=== PATIENT | male | born 1960 | race Two or more races ===

== ENCOUNTER 2018-10-09 01:56 | Inpatient (IN) | payer MEDICARE, OTHER ==
[2018-10-09] VITALS (7 sets, daily range): BP systolic 125–182; BP diastolic 53–93
[~2018-10-09] VITALS: Ht 160 cm; Wt 59.9 kg
[2018-10-09] MEDS ORDERED: MECLIZINE HCL12.5 MG ORAL (01:59)
[2018-10-09] MEDS ORDERED: LORazepam Inj 2mg/ml 1ml IV ONE (02:15)
[2018-10-09] MEDS ORDERED: DiphenhydrAMINE 50mg/ml Inj IVP ONE (02:15)
[2018-10-09 02:37] LABS: BASOPHILS % (AUTO) 1.2 % (0.0-2.0); HEMATOCRIT 28.3 % (42.0-52.0); HEMOGLOBIN 9.7 G/DL (14.2-18.0); MEAN CORPUSCULAR VOLUME 90 FL (80-99); MONOCYTES % (AUTO) 11.2 % (1.0-10.0); NEUTROPHILS % (AUTO) 58.7 % (45.0-75.0); PLATELET COUNT 297 K/UL (150-450); RED BLOOD COUNT 3.16 M/UL (4.70-6.10); RED CELL DISTRIBUTION WIDTH 13.2 % (11.6-14.8); WHITE BLOOD COUNT 7.2 K/UL (4.8-10.8)
[2018-10-09 02:48] LABS: ANION GAP 12 mmol/L (5-15); BLOOD UREA NITROGEN 70 mg/dL (7-18); CALCIUM 9.3 MG/DL (8.5-10.1); CARBON DIOXIDE 28 MMOL/L (21-32); CHLORIDE 92 MMOL/L (98-107); CREATININE 6.6 MG/DL (0.55-1.30); POTASSIUM 4.2 MMOL/L (3.5-5.1); SODIUM 132 MMOL/L (136-145)
[2018-10-09 03:01] LABS: ALANINE AMINOTRANSFERASE 28 U/L (12-78); ALBUMIN 3.4 G/DL (3.4-5.0); ALBUMIN/GLOBULIN RATIO 0.6 (1.0-2.7); ALKALINE PHOSPHATASE 192 U/L (46-116); ASPARTATE AMINO TRANSFERASE 36 U/L (15-37); BILIRUBIN,TOTAL 0.4 MG/DL (0.2-1.0); CKMB 2.1 NG/ML (0.0-3.6); CREATINE KINASE 71 U/L (26-308)
--- NOTE | 2018-10-09 03:41 | Emergency Room Report ---
History of Present Illness General Chief Complaint: Nausea Source: Patient Present Illness HPI Patient just by paramedics for reports of nausea vomiting Symptoms started this evening patient has dialysis Tuesday and Saturdays He is up-to-date with dialysis Denies any chest pain denies any fevers Patient presents actively vomiting Mild diffuse abdominal discomfort mainly epigastric however Allergies: Coded Allergies: No Known Allergies (Unverified , 10/09/18) Patient History Past Medical History: see triage record Pertinent Family History: none Reviewed Nursing Documentation: PMH: Agreed; PSxH: Agreed Nursing Documentation-PMH Past Medical History: No History, Except For Hx Hypertension: Yes Hx Diabetes: Yes Hx Dialysis: Yes - [facility] Review of Systems All Other Systems: negative except mentioned in HPI Physical Exam Vital Signs Date Time Temp Pulse Resp B/P (MAP) Pulse Ox O2 Delivery O2 Flow Rate FiO2 10/09/18 01:52 98.4 69 18 182/93 99 Sp02 EP Interpretation: reviewed, normal General Appearance: mild distress - Actively vomiting Head: normocephalic, atraumatic Eyes: bilateral eye PERRL, bilateral eye EOMI ENT: hearing grossly normal, normal pharynx, TMs + canals normal, uvula midline Neck: full range of motion, supple, no meningismus, no bony tend Respiratory: lungs clear, normal breath sounds, no rhonchi, no respiratory distress, no retraction, no accessory muscle use Cardiovascular #1: normal peripheral pulses, regular rate, rhythm, no edema, no gallop, no JVD, no murmur Gastrointestinal: normal bowel sounds, non tender, soft, no mass, no organomegaly, non-distended, no guarding, no hernia, no pulsatile mass, no rebound Genitourinary: no CVA tenderness Musculoskeletal: normal inspection Neurologic: oriented x3, responsive, cryogenic transport driver III-XII nml as tested, motor strength/ tone normal, sensory intact Psychiatric: mood/affect normal Skin: normal color, no rash, warm/dry, palpation normal Lymphatic: normal inspection, no adenopathy Medical Decision Making Diagnostic Impression: Primary Impression: Acute pancreatitis Additional Impressions: ESRD (end stage renal disease) on dialysis Pleural effusion ER Course Patient is a fairly complex patient with multiple differential to consideration including but not limited to cardiac cardiopulmonary and vascular emergencies Patient's lipase count is elevated x-ray shows concerning findings of large pleural effusion CT imaging confirms the size of this effusion Patient requires further inpatient care Renal and pulmonary consultations and admission for further care Labs Test 10/09/18 02:11 White Blood Count 7.2 K/UL (4.8-10.8) Red Blood Count 3.16 M/UL (4.70-6.10) Hemoglobin 9.7 G/DL (14.2-18.0) Hematocrit 28.3 % (42.0-52.0) Mean Corpuscular Volume 90 FL (80-99) Mean Corpuscular Hemoglobin 30.8 PG (27.0-31.0) Mean Corpuscular Hemoglobin Concent 34.3 G/DL (32.0-36.0) Red Cell Distribution Width 13.2 % (11.6-14.8) Platelet Count 297 K/UL (150-450) Mean Platelet Volume 5.8 FL (6.5-10.1) Neutrophils (%) (Auto) 58.7 % (45.0-75.0) Lymphocytes (%) (Auto) 22.0 % (20.0-45.0) Monocytes (%) (Auto) 11.2 % (1.0-10.0) Eosinophils (%) (Auto) 7.0 % (0.0-3.0) Basophils (%) (Auto) 1.2 % (0.0-2.0) Sodium Level 132 MMOL/L (136-145) Potassium Level 4.2 MMOL/L (3.5-5.1) Chloride Level 92 MMOL/L (98-107) Carbon Dioxide Level 28 MMOL/L (21-32) Anion Gap 12 mmol/L (5-15) Blood Urea Nitrogen 70 mg/dL (7-18) Creatinine 6.6 MG/DL (0.55-1.30) Estimat Glomerular Filtration Rate 8.7 mL/min (>60) Glucose Level 186 MG/DL (74-106) Calcium Level 9.3 MG/DL (8.5-10.1) Total Bilirubin 0.4 MG/DL (0.2-1.0) Aspartate Amino Transf (AST/SGOT) 36 U/L (15-37) Alanine Aminotransferase (ALT/SGPT) 28 U/L (12-78) Alkaline Phosphatase 192 U/L (46-116) Total Creatine Kinase 71 U/L (26-308) Creatine Kinase MB 2.1 NG/ML (0.0-3.6) Creatine Kinase MB Relative Index 2.9 Troponin I 0.007 ng/mL (0.000-0.056) Total Protein 9.2 G/DL (6.4-8.2) Albumin 3.4 G/DL (3.4-5.0) Globulin 5.8 g/dL Albumin/Globulin Ratio 0.6 (1.0-2.7) Lipase 509 U/L (73-393) Rhythm Strip Diag. Results EP Interpretation: yes Rate: 60 Rhythm: NSR, no PVC's, no ectopy Chest X-Ray Diagnostic Results Chest X-Ray Diagnostic Results : Chest X-Ray Ordered: Yes # of Views/Limited/Complete: 1 View Indication: Shortness of Breath EP Interpretation: Yes Interpretation: no pneumothorax, other - Large bilateral effusions, cardiomegaly Impression: Other - Bilateral effusions Electronically Signed by: Garrett Chew DO CT/MRI/US Diagnostic Results CT/MRI/US Diagnostic Results : Impression CT chestImpression: Massive right pleural effusion, occupying over 50% of the right hemithorax. Resultant passive atelectasis of most of the right lower lobe and portions of the rest of the lung. Groundglass opacity involving the posterior right upper lobe, may reflects atelectatic change or focal consolidation 5 mm left lower lobe opacity. There is no significant smoking history or other risk factors for lung carcinoma, no further follow-up necessary. Recommend 6-12 month follow-up if there are significant risk factors Minimal left lung atelectasis Cardiomegaly Ascites Edema of the retroperitoneal and omental fat Left renal cysts incidentally noted Last Vital Signs Date Time Temp Pulse Resp B/P (MAP) Pulse Ox O2 Delivery O2 Flow Rate FiO2 10/09/18 02:01 98.4 69 18 182/93 99 Status: improved Disposition: ADMITTED INPATIENT Condition: Serious Referrals: NOT CHOSEN CHARLIE/,REFERRING (PCP) Garrett Chew DO Oct 09, 2018 03:41
--- NOTE | 2018-10-09 07:57 | History & Physical ---
History and Physical History & Physicial seen and examined. Dictation completed On 750 AM Cortney Grullon MD Oct 09, 2018 07:57
[2018-10-09] MEDS ORDERED: Vancomycin 1 GM in D5W 275 ML IVPB SCH (08:00)
--- NOTE | 2018-10-09 08:39 | Diagnostic Imaging Report ---
Clinical Indication: Shortness of breath Technique: Spiral acquisitions obtained through the chest. No IV contrast utilized, . Multiplanar reconstructions generated. Total dose length product 969.96 mGycm. CTDIvol(s) 28.9 mGy. Dose reduction achieved using automated exposure control Comparison: none Findings:There is massive right pleural effusion, occupying over 50% of the right hemithorax. There is atelectasis is of nearly the entire right lower lobe, with only a small aerated portion of the superior segment. There is considerable atelectasis involving much of the right upper lobe and portions of the right middle lobe also resulting. There is some groundglass opacity involving the posterior right upper lobe, which may reflect some atelectasis or some focal consolidation. Some atelectatic changes are seen in the left lower lobe. There is a faint 5 mm opacity in the periphery of the left lower lobe, image 41 series 5. The left lung is otherwise clear. No left-sided pleural effusion is demonstrated. The heart is enlarged. There is no pericardial effusion demonstrated. No mediastinal or hilar mass or adenopathy. The included thyroid is unremarkable. The included upper abdominal anatomy demonstrates a small amount of intraperitoneal fluid. There is perinephric fat stranding and generalized edema of the omental fat. Cysts are seen in the upper pole of the left kidney The bones are unremarkable. Impression: Massive right pleural effusion, occupying over 50% of the right hemithorax. Resultant passive atelectasis of most of the right lower lobe and portions of the rest of the lung. Groundglass opacity involving the posterior right upper lobe, may reflects atelectatic change or focal consolidation 5 mm left lower lobe opacity. There is no significant smoking history or other risk factors for lung carcinoma, no further follow-up necessary. Recommend 6-12 month follow-up if there are significant risk factors Minimal left lung atelectasis Cardiomegaly Ascites Edema of the retroperitoneal and omental fat Left renal cysts incidentally noted This agrees with the preliminary interpretation provided overnight by [facility] teleradiology service. The CT scanner at [facility] is accredited by the [employer] and the scans are performed using protocols designed to limit radiation exposure to as low as reasonably achievable to attain images of sufficient resolution adequate for diagnostic evaluation.
[2018-10-09] MEDS ORDERED: Piperacillin/Tazobactam 2.25 GM in D5W 55 ML IVPB SCH (09:00)
[2018-10-09] MEDS ORDERED: Vancomycin 1.25gm Premix 275 ML IVPB ONE (09:30)
[2018-10-09] MEDS ORDERED: Vancomycin 1.25gm Premix IVPB ONE (09:30)
[2018-10-09] MEDS: Piperacillin/Tazobactam 2.25 GM in D5W 55 ML IVPB SCH ×3 (09:38→21:38)
--- NOTE | 2018-10-09 10:01 | Consultation ---
Consult Note Consult Note asked to eval for dialysis management Patient just by paramedics for reports of nausea vomiting Symptoms started this evening patient has dialysis Tuesday and Saturdays He is up-to-date with dialysis Denies any chest pain denies any fevers Patient presents actively vomiting Mild diffuse abdominal discomfort mainly epigastric however No Known Allergies (Unverified , 10/09/18) Past Medical History: No History, Except For Hx Hypertension: Yes Hx Diabetes: Yes Hx Dialysis: Yes - [facility] past 5 years interviewed poor historian examined data reviewed Assessment/Plan ESRD Tue Sat - has left arm fistula HTN Anemia Pancreatitis NPO HD in am IV Protonix IV Fluids IV Reglan PRN per consultants Matthieu Gustafson MD Oct 09, 2018 10:01
[2018-10-09] MEDS ORDERED: Hydromorphone 0.5mg/0.5ml inj IVP PRN (10:15)
[2018-10-09] MEDS ORDERED: Metoclopramide 10mg/2ml Inj IVP PRN (10:15)
[2018-10-09] MEDS: Pantoprazole Inj IVP SCH ×2 (10:33→21:14)
[2018-10-09 10:34] LABS: CHOLESTEROL 157 MG/DL (< 200); HDL CHOLESTEROL 72 MG/DL (40-60); TRIGLYCERIDES 54 MG/DL (30-150)
[2018-10-09] MEDS ORDERED: Albuterol/Ipratropium 3ml neb HHN SCH (11:00)
[2018-10-09] MEDS: Albuterol/Ipratropium 3ml neb HHN SCH ×4 (12:02→22:53)
--- NOTE | 2018-10-09 13:13 | Diagnostic Imaging Report ---
Indication: Chest pain Technique: One view of the chest Comparison: none Findings: The heart is enlarged. There is a large right pleural effusion. There is evidence of perihilar consolidation with air bronchograms on the right. The left lung and pleural space are clear. Impression: Large right pleural effusion and likely right lung consolidation. Cardiomegaly
--- NOTE | 2018-10-09 13:46 | Infectious Diseases Prog Note ---
Assessment/Plan Problems: (1) Aspiration pneumonia of right upper lobe Assessment & Plan: continue zosyn and vancomycin empirically , aspiration precaution and keep HOB> 30 degree all the time (2) Pleural effusion on right Assessment & Plan: recommend etiology parapneumonic VS pancreatitis related VS volume overload. recommend thoracentesis and fluids to be sent for cytology, cell count with DIFF, culture/fungal, PH, amylase, LDH (3) Acute pancreatitis Assessment & Plan: continue supportive care , monitor lipase level (4) Nausea and vomiting in adult patient Assessment & Plan: due to the above, continue supportive care Subjective Allergies: Coded Allergies: No Known Allergies (Unverified , 10/09/18) Objective Vital Signs Last 24 Hour Vital Signs Date Time Temp Pulse Resp B/P (MAP) Pulse Ox O2 Delivery O2 Flow Rate FiO2 10/09/18 12:31 66 20 Room Air 21 10/09/18 12:12 68 20 100 Room Air 21 10/09/18 12:02 67 20 99 Room Air 21 10/09/18 12:00 96.4 64 16 125/59 (81) 99 10/09/18 12:00 63 10/09/18 10:33 173/85 10/09/18 09:00 Room Air 10/09/18 08:09 66 10/09/18 08:00 96.1 67 12 173/85 (114) 99 10/09/18 07:04 Room Air 10/09/18 06:58 Room Air 10/09/18 06:00 98.4 89 18 157/89 (111) 100 10/09/18 05:30 98.4 78 16 153/62 100 10/09/18 04:11 98.4 65 17 159/53 100 10/09/18 02:01 98.4 69 18 182/93 99 10/09/18 01:52 98.4 69 18 182/93 99 Height (Feet): 5 Height (Inches): 3.00 Weight (Pounds): 130 Microbiology Date/Time Source Procedure Growth Status 10/09/18 07:20 Rectum Received Laboratory Tests Test 10/09/18 02:11 10/09/18 08:12 White Blood Count 7.2 K/UL (4.8-10.8) Red Blood Count 3.16 M/UL (4.70-6.10) L Hemoglobin 9.7 G/DL (14.2-18.0) L Hematocrit 28.3 % (42.0-52.0) L Mean Corpuscular Volume 90 FL (80-99) Mean Corpuscular Hemoglobin 30.8 PG (27.0-31.0) Mean Corpuscular Hemoglobin Concent 34.3 G/DL (32.0-36.0) Red Cell Distribution Width 13.2 % (11.6-14.8) Platelet Count 297 K/UL (150-450) Mean Platelet Volume 5.8 FL (6.5-10.1) L Neutrophils (%) (Auto) 58.7 % (45.0-75.0) Lymphocytes (%) (Auto) 22.0 % (20.0-45.0) Monocytes (%) (Auto) 11.2 % (1.0-10.0) H Eosinophils (%) (Auto) 7.0 % (0.0-3.0) H Basophils (%) (Auto) 1.2 % (0.0-2.0) Sodium Level 132 MMOL/L (136-145) L Potassium Level 4.2 MMOL/L (3.5-5.1) Chloride Level 92 MMOL/L (98-107) L Carbon Dioxide Level 28 MMOL/L (21-32) Anion Gap 12 mmol/L (5-15) Blood Urea Nitrogen 70 mg/dL (7-18) H Creatinine 6.6 MG/DL (0.55-1.30) H Estimat Glomerular Filtration Rate 8.7 mL/min (>60) Glucose Level 186 MG/DL (74-106) H Calcium Level 9.3 MG/DL (8.5-10.1) Total Bilirubin 0.4 MG/DL (0.2-1.0) Aspartate Amino Transf (AST/SGOT) 36 U/L (15-37) Alanine Aminotransferase (ALT/SGPT) 28 U/L (12-78) Alkaline Phosphatase 192 U/L (46-116) H Total Creatine Kinase 71 U/L (26-308) Creatine Kinase MB 2.1 NG/ML (0.0-3.6) Creatine Kinase MB Relative Index 2.9 Troponin I 0.007 ng/mL (0.000-0.056) 0.008 ng/mL (0.000-0.056) Total Protein 9.2 G/DL (6.4-8.2) H Albumin 3.4 G/DL (3.4-5.0) Globulin 5.8 g/dL Albumin/Globulin Ratio 0.6 (1.0-2.7) L Lipase 509 U/L (73-393) H Hemoglobin A1c 5.0 % (4.3-6.0) Triglycerides Level 54 MG/DL (30-150) Cholesterol Level 157 MG/DL (< 200) LDL Cholesterol 68 mg/dL (<100) HDL Cholesterol 72 MG/DL (40-60) H Cholesterol/HDL Ratio 2.2 (3.3-4.4) L Thyroid Stimulating Hormone (TSH) 14.227 uiU/mL (0.358-3.740) Current Medications Medications (Trade) Dose Ordered Sig/Anish Route PRN Reason Start Time Stop Time Status Last Admin Dose Admin Albuterol/ Ipratropium (Albuterol/ Ipratropium) 3 ml Q4HRT HHN 10/09/18 11:00 10/14/18 10:59 10/09/18 12:02 Hydralazine HCl (Apresoline) 10 mg Q4H PRN IV bp over 160 syst 10/09/18 10:00 11/08/18 09:59 Hydromorphone HCl (Dilaudid) 0.5 mg Q4H PRN IVP For Pain 10/09/18 10:15 10/16/18 10:14 Metoclopramide HCl (Reglan) 10 mg Q6H PRN IVP Nausea & Vomiting 10/09/18 10:15 11/08/18 10:14 Pantoprazole (Protonix) 40 mg EVERY 12 HOURS IVP 10/09/18 10:15 11/08/18 10:14 10/09/18 10:33 Piperacillin Sod/ Tazobactam Sod 2.25 gm/Dextrose 55 ml @ 110 mls/hr Q8HR IVPB 10/09/18 09:00 10/14/18 08:59 10/09/18 13:08 Sodium Chloride 1,000 ml @ 50 mls/hr Q20H IV 10/09/18 10:15 11/08/18 10:14 10/09/18 10:33 Vancomycin HCl (Vanco rx to dose) 1 ea DAILY PRN MISC Per rx protocol 4/8/19 09:30 11/08/18 09:29 Jeff Mendez M.D. Oct 09, 2018 13:46
--- NOTE | 2018-10-09 15:52 | General Progress Note ---
Assessment/Plan Problem List: (1) Anemia ICD Codes: D64.9 - Anemia, unspecified SNOMED: 935440667 (2) Ascites ICD Codes: R18.8 - Other ascites SNOMED: 978953814 (3) Pleural effusion on right ICD Codes: J90 - Pleural effusion, not elsewhere classified SNOMED: 83978628 (4) Nausea and vomiting in adult patient ICD Codes: R11.2 - Nausea with vomiting, unspecified SNOMED: 61100352 Assessment/Plan fu CT and us repeat labs anemia work up clears pending thoracentesis Subjective ROS Limited/Unobtainable: Yes Allergies: Coded Allergies: No Known Allergies (Unverified , 10/09/18) Subjective no abd pain Objective Last 24 Hour Vital Signs Date Time Temp Pulse Resp B/P (MAP) Pulse Ox O2 Delivery O2 Flow Rate FiO2 10/09/18 15:42 69 20 100 Room Air 21 10/09/18 15:27 66 20 99 Room Air 21 10/09/18 12:31 66 20 Room Air 21 10/09/18 12:12 68 20 100 Room Air 21 10/09/18 12:02 67 20 99 Room Air 21 10/09/18 12:00 96.4 64 16 125/59 (81) 99 10/09/18 12:00 63 10/09/18 10:33 173/85 10/09/18 09:00 Room Air 10/09/18 08:09 66 10/09/18 08:00 96.1 67 12 173/85 (114) 99 10/09/18 07:04 Room Air 10/09/18 06:58 Room Air 10/09/18 06:00 98.4 89 18 157/89 (111) 100 10/09/18 05:30 98.4 78 16 153/62 100 10/09/18 04:11 98.4 65 17 159/53 100 10/09/18 02:01 98.4 69 18 182/93 99 10/09/18 01:52 98.4 69 18 182/93 99 Intake and Output 10/08/18 10/09/18 19:00 07:00 Output Total 0 ml Balance 0 ml Output Urine Total 0 ml Laboratory Tests 10/09/18 02:11: White Blood Count 7.2, Red Blood Count 3.16L, Hemoglobin 9.7L, Hematocrit 28.3L , Mean Corpuscular Volume 90, Mean Corpuscular Hemoglobin 30.8, Mean Corpuscular Hemoglobin Concent 34.3, Red Cell Distribution Width 13.2, Platelet Count 297, Mean Platelet Volume 5.8L, Neutrophils (%) (Auto) 58.7, Lymphocytes ( %) (Auto) 22.0, Monocytes (%) (Auto) 11.2H, Eosinophils (%) (Auto) 7.0H, Basophils (%) (Auto) 1.2, Sodium Level 132L, Potassium Level 4.2, Chloride Level 92L, Carbon Dioxide Level 28, Anion Gap 12, Blood Urea Nitrogen 70H, Creatinine 6.6H, Estimat Glomerular Filtration Rate 8.7, Glucose Level 186H, Calcium Level 9.3, Total Bilirubin 0.4, Aspartate Amino Transf (AST/SGOT) 36, Alanine Aminotransferase (ALT/SGPT) 28, Alkaline Phosphatase 192H, Total Creatine Kinase 71, Creatine Kinase MB 2.1, Creatine Kinase MB Relative Index 2.9, Troponin I 0.007, Total Protein 9.2H, Albumin 3.4, Globulin 5.8, Albumin/ Globulin Ratio 0.6L, Lipase 509H 10/09/18 08:12: Troponin I 0.008, Hemoglobin A1c 5.0, Triglycerides Level 54, Cholesterol Level 157, LDL Cholesterol 68, HDL Cholesterol 72H, Cholesterol/HDL Ratio 2.2L, Thyroid Stimulating Hormone (TSH) 14.227H Height (Feet): 5 Height (Inches): 3.00 Weight (Pounds): 137 General Appearance: alert EENT: normal ENT inspection Neck: supple Cardiovascular: normal rate Respiratory/Chest: decreased breath sounds Abdomen: normal bowel sounds, non tender, soft Extremities: non-tender Slava Jack MD Oct 09, 2018 15:52
--- NOTE | 2018-10-09 16:30 | History and Physical Report ---
DATE OF ADMISSION: 10/09/2018 SOURCE OF INFORMATION: Patient and EMR. HISTORY OF PRESENT ILLNESS: The patient is the a 58-year-old male with history of end-stage renal disease, presented with the weakness and nausea for the last couple of days. At the time of evaluation, the patient appears drowsy, however, denies any chest pain or shortness of breath. Denies any diarrhea. Denies any abnormal bleeding. The patient reportedly has not missed any of his hemodialysis sessions. PAST MEDICAL HISTORY: Including but not limited to the end-stage renal disease, on hemodialysis. PAST SURGICAL HISTORY: Including but not limited to left-sided AV fistula. SOCIAL HISTORY: The patient lives by himself. The patient's family all are in [facility]. Denies history of illicit drug abuse, smoking, or alcohol abuse. MEDICATIONS: Current hospital medications including, but not limited to, meclizine. PHYSICAL EXAMINATION: VITAL SIGNS: Blood pressure 180/90, temperature 98.2, pulse oximetry 98% on room air, respiratory rate 20. HEAD AND NECK: Atraumatic and normocephalic. CHEST: Lack of breathing in the right side and bronchial breathing sounds in the other side. NEUROLOGIC: The patient is awake, alert, and oriented x3. MUSCULOSKELETAL: Positive for the AV fistula in the left upper arm. No tenderness. No redness. NEUROLOGIC: The patient is delirious. LABORATORY DATA: Labs dated 10/09/2018, WBC 7.2, hemoglobin 9.2. Sodium 132, potassium 4.2, BUN 70, creatinine 6.6, lipase of 500. ASSESSMENT AND PLAN: 1. Sepsis. 2. Acute encephalopathy. 3. Hypoxemic respiratory failure. 4. Right-sided pleural effusion. 5. End-stage renal disease, on hemodialysis. 6. Anemia. 7. GI and DVT prophylaxis. PLAN OF CARE: We will transfer the patient for med/surg for a KIM. Nephrology, Pulmonary, and Cardiology have been notified and consulted. We will start empiric antibiotic treatment. Cortney Grullon M.D. DR: BEV JOB#: [id number] CC:
--- NOTE | 2018-10-09 17:34 | Consultation ---
Consult Note Assessment/Plan DICT # [id number] Gagan Knight MD Oct 09, 2018 17:34
[2018-10-09 18:26] LABS: INR 1.1 (0.9-1.1)
--- NOTE | 2018-10-09 18:49 | Diagnostic Imaging Report ---
Indication: Abdominal pain Technique: Barakat-scale and duplex images of the upper abdomen were obtained. Doppler interrogation of the pancreatic and hepatic vessels Comparison: none Findings: Gallbladder is unremarkable, without stones, wall thickening, nor pericholecystic fluid. Sonographic Cullen's sign is negative. Common bile duct measures 4 mm in diameter. No intrahepatic biliary ductal dilatation. Liver demonstrates normal echogenicity, no focal abnormality. Portal vein and hepatic veins are patent. Pancreas is unremarkable. Spleen is unremarkable. Left kidney measures 7.1 cm in length. Right kidney measures 8.4 cm length. Both kidneys demonstrate slightly increased echogenicity. There is no hydronephrosis. Both kidneys demonstrate cysts. The right kidney demonstrates an 8 mm hyperechoic focus in the upper pole . There is a small amount of ascites fluid demonstrated, also demonstrated on recent chest CT. There is a large right pleural effusion. There is a suggestion of a smaller left pleural effusion, although this is questionable as no pleural fluid is demonstrated on recent chest CT. Abdominal aorta is partially obscured by bowel gas, visualized portions are non-aneurysmal . Impression: Negative for gallstones or dilated ducts Ascites Small echogenic kidneys, suggestive of chronic renal disease Bilateral renal cysts 8 mm hyperechoic right upper pole renal lesion, could represent a calyceal calculus Large right pleural effusion. Note incomplete visualization of the abdominal aorta
--- NOTE | 2018-10-09 19:22 | Cardiology Report ---
APPROVED REPORT EXAM: Two-dimensional and M-mode echocardiogram with Doppler and color Doppler. M-Mode DIMENSIONS IVSd1.0 (0.7-1.1cm)Left Atrium (MM)4.7 (1.6-4.0cm) LVDd5.6 (3.5-5.6cm)Aortic Root3.5 (2.0-3.7cm) PWd0.8 (0.7-1.1cm)Aortic Cusp Exc.1.7 (1.5-2.0cm) IVSs1.0 cm LVDs4.7 (2.5-4.0cm) PWs1.0 cm ANteroseptal wall hypokinesia with the left ventricular ejection fraction estimated at 35-40%. Mild left ventricular enlargement. Anterior Echo-free space, may be due to pericardial fat or effusion. Mild left atrial enlargement. Mild right atrial and ventricular enlargement. Right ventricular chamber sizes is within upper normal limits . Aortic valve calcification with normal cusp excursion . Mildly thickened mitral valve leaflets with normal excursion. Moderately mitral annulus and aortic root calcification. Pulmonic valve not well visualized. IVC dilated at 2.4 cm without physiologic collapse suggestive of increased RA pressure. A color flow and spectral Doppler study was performed and revealed: No aortic insufficiency . Mitral inflow velocities indicates possible pseudo normalization pattern implying moderately elevated left atrial pressure (Grade II ). Moderate mitral regurgitation. Moderate tricuspid regurgitation. Tricuspid systolic velocities suggests peak right ventricular systolic pressure of 54 mmHg,consistent with moderate pulmonary hypertension . Trace pulmonic regurgitation present .
--- NOTE | 2018-10-09 19:38 | Cardiology Report ---
APPROVED REPORT EKG Measurement Heart [id number] Normal sinus rhythm Rightward axis Incomplete right bundle branch block Prolonged QT Abnormal ECG
--- NOTE | 2018-10-09 20:15 | Consultation ---
DATE OF CONSULTATION: 10/09/2018 INFECTIOUS DISEASE CONSULTATION CONSULTING PHYSICIAN: Jeff Mendez M.D. REFERRING PHYSICIAN: Cortney Grullon M.D. REASON FOR CONSULTATION: Right upper lobe pneumonia with massive pleural effusion, possible empyema and sepsis. Recommendation for antibiotics treatment. HISTORY OF PRESENT ILLNESS: The patient is a 58-year-old male with past medical history of end-stage renal disease, on hemodialysis, diabetes, and hypertension, was brought in via paramedics to [facility] emergency room for nausea and vomiting. Last evening, the patient is up-to-date with his dialysis. Denied any chest pain, fever, or chills, but he had mild cough. He presented vomiting actively to the emergency room with diffuse abdominal discomfort in the epigastric area. His blood pressure was found to be elevated with temperature of 98.4. His white count was 7.2. The patient had temperature of 98.4. An x-ray of the chest showed massive right side effusion. He had a CT scan of the chest, which showed massive right pleural effusion, acute finding over 50% of the right hemothorax with passive atelectases of most of the right lower lobe and portion of the rest of the lung with ground-glass opacity involving the posterior right upper lobe reflecting focal consolidation or pneumonia. So, Infectious Disease consultation was requested for antibiotics treatment and further management. As of note, the patient is Taiwanese speaker, mainly poor historian, could not provide good history. History was mainly obtained from the medical record and nursing staff. PAST MEDICAL HISTORY: Significant for hypertension, diabetes, and end-stage renal disease, on hemodialysis, Tuesday, , and Tuesday. PAST SURGICAL HISTORY: Not on record. MEDICATIONS: The patient received vancomycin and Zosyn. For the rest of his medications, please refer to [facility]. ALLERGIES: No known drug allergy. FAMILY HISTORY: Noncontributory. SOCIAL HISTORY: The patient lives at home with . No recent drugs, tobacco, or alcohol. Unemployed. PHYSICAL EXAMINATION: VITAL SIGNS: Temperature 96.4, pulse 63, respirations 16, blood pressure 125/59, and saturation 99% on room air. GENERAL: A middle-aged male, Taiwanese speaker, lying in bed, at the bedside. Awake, alert, and oriented, not in acute distress. Has mild cough. HEENT: Normocephalic and atraumatic. Pupils reactive to light equally. Moist oral mucosa. No exudate or thrush. NECK: Supple. No lymphadenopathy. CARDIOVASCULAR: Regular rate and rhythm. No murmur or gallop. LUNGS: He had diminished breathing sound on the right side of the lungs, which is almost silent. Wheezing sound can be heard over the left lung side with some crackles. No wheezing or rhonchi. Normal breathing efforts. ABDOMEN: Soft. Tender in the epigastric area. Mildly distended. No ascites or organomegaly. No rebound. EXTREMITY: No edema. No cyanosis. No clubbing. SKIN: No rash. No hives. GENITOURINARY: Normal genitalia. No Rice. LABORATORY DATA: Laboratory showed white count of 7.2, hemoglobin of 9.7, and platelet count of 297,000. BUN of 70, creatinine of 6.6, and glucose of 186. Alk phosphatase of 192. CK-MB of 2.1. Lipase of 509. IMAGING: Chest x-ray showed large right pleural effusion and likely right lung consolidation. A chest CT showed massive right pleural effusion, occupying over 50% of the right hemothorax with massive atelectases of most of the right lower lobe and portion of the rest of the lung, ground-glass opacity involving the posterior right upper lobe, may reflect atelectatic change or focal consolidation. A 5 mm left lower lobe opacity, no significant smoking history or other risk factor for lung carcinoma. ASSESSMENT AND RECOMMENDATION: 1. Aspiration pneumonia of the right upper lobe. Continue Zosyn and vancomycin empirically with aspiration precaution. Keep head of bed more than 30-degree all the time. We will attempt to send sputum culture if he produces any. 2. Pleural effusion on the right. Parapneumonic versus pancreatitis related versus volume overload. Recommend thoracentesis and fluid to be sent for cytology, cell count with differential, culture, fungal, pH, amylase, LDH level, which we will order. 3. Acute pancreatitis. Continue supportive care. Monitor lipase level. Keep NPO for now with pain management as per the primary. 4. Nausea and vomiting due to pancreatitis. Continue supportive care and nausea medication and hydration as needed. Thank you for the consult. Jeff Mendez M.D. DR: KEITH JOB#: [id number] CC:
--- NOTE | 2018-10-09 23:15 | Consultation ---
DATE OF CONSULTATION: 10/09/2018 PULMONARY CONSULTATION CONSULTING PHYSICIAN: Gagan Knight M.D. REFERRING PHYSICIAN: Cortney Grullon M.D. REASON FOR CONSULTATION: Pleural effusion. HISTORY OF PRESENT ILLNESS: The patient is a 58-year-old male with history of end-stage renal disease on Tuesday, , Tuesday dialysis, presenting with weakness and nausea. The patient presented to the ER in marked distress and malaise, but he was afebrile with stable vitals and saturating fine on room air. Initial workup was unremarkable except for evidence of renal failure, hyponatremia, and anemia. A chest x-ray done in the emergency department demonstrated a large right-sided effusion and consolidation of the right lung, so a CT scan of the chest was done, which showed a massive right-sided effusion with passive atelectasis and some scattered ground-glass opacities in the right. There was also 5 mm left lower lobe opacity and some atelectasis at the left base. Edema was noted in the RP and omental fat with ascites as well. Patient did of note have an elevated lipase and is being treated for pancreatitis. He has been seen by gastrointestinal. A CT and ultrasound of the abdomen is pending. I initially saw the patient in the [facility] and ordered a thoracentesis evaluation. He has also been seen by ID and started on Zosyn and vancomycin for possible healthcare related pneumonia. PAST MEDICAL HISTORY: 1. End-stage renal disease, on dialysis. 2. Vertigo. MEDICATIONS: Prior to admission medications, reviewed. Current medications, reviewed. ALLERGIES: No known drug allergies. SOCIAL HISTORY: No tobacco, alcohol, or drug use. FAMILY HISTORY: Noncontributory. REVIEW OF SYSTEMS: Negative other than history of present illness. PHYSICAL EXAMINATION: VITAL SIGNS: Temperature 97.2, blood pressure 144/67, respiratory rate 18, and saturating 98% on room air. GENERAL: He is a well-developed and well-nourished male, in no acute distress. Awake, alert, and oriented x3. HEENT: Normocephalic and atraumatic. Oropharynx is clear with moist mucous membranes. NECK: Supple without lymphadenopathy or JVD. CHEST: Clear, but decreased at the base. HEART: Regular rate and rhythm. ABDOMEN: Soft, nontender, and nondistended. EXTREMITIES: No cyanosis, clubbing, or edema. ANCILLARY DATA: Laboratories reviewed. IMAGING: Reviewed. ASSESSMENT: The patient is a 58-year-old male with end-stage renal disease, on dialysis Tuesday, , Tuesday, presenting with abdominal pain and nausea secondary to pancreatitis, noted to have a large right-sided pleural effusion with subsequent compressive atelectasis and possible pneumonia. PROBLEM LIST: 1. Large right-sided effusion. 2. Compressive atelectasis. 3. Ground-glass opacity of the right lung, atelectasis versus infiltrate. 4. Left lower lobe pulmonary nodule. 5. Acute pancreatitis. 6. End-stage renal disease, on dialysis. TREATMENT PLAN: 1. Optimize pulmonary hygiene/mobilize as tolerated. 2. P.r.n. O2. 3. Continue antibiotics (vancomycin and Zosyn) per ID. 4. Thoracentesis and pleural fluid studies ordered. 5. Follow up GI recs, clear liquid diet, pain control/supportive care, follow up CT of the abdomen and ultrasound. 6. Monitor volumes and renal function. 7. Start heparin subcutaneous for DVT prophylaxis. 8. Continue [id number] and p.r.n. bronchodilators. Dr. Grullon, thank you for allowing me to assist in the care of your patient. If I may be of any assistance in the future, please do not hesitate to ask. Gagan Knight M.D. DR: TAVO JOB#: [id number] CC:
[2018-10-10] VITALS: BP 137/64
[2018-10-10] MEDS: Albuterol/Ipratropium 3ml neb HHN SCH ×6 (03:20→23:11)
[2018-10-10 04:00] VITALS: BP 150/64
[2018-10-10 05:26] LABS: BASOPHILS % (AUTO) 1.4 % (0.0-2.0); EOSINOPHILS % (AUTO) 4.8 % (0.0-3.0); HEMOGLOBIN 8.8 G/DL (14.2-18.0); LYMPHOCYTES % (AUTO) 25.8 % (20.0-45.0); MEAN CORPUSCULAR VOLUME 90 FL (80-99); MONOCYTES % (AUTO) 10.8 % (1.0-10.0); NEUTROPHILS % (AUTO) 57.2 % (45.0-75.0); PLATELET COUNT 256 K/UL (150-450); RED BLOOD COUNT 2.88 M/UL (4.70-6.10); RED CELL DISTRIBUTION WIDTH 13.2 % (11.6-14.8); WHITE BLOOD COUNT 6.5 K/UL (4.8-10.8)
[2018-10-10] MEDS: Piperacillin/Tazobactam 2.25 GM in D5W 55 ML IVPB SCH ×3 (05:26→21:40)
[2018-10-10 05:44] LABS: AMMONIA 24 umol/L (11-32)
[2018-10-10 05:50] LABS: % IRON SATURATION 23 % (15-50); IRON 55 ug/dL (50-175); TOTAL IRON BINDING CAPACITY 237 ug/dL (250-450)
[2018-10-10 06:04] LABS: CREATINE KINASE 48 U/L (26-308); GAMMA GLUTAMYL TRANSPEPTIDASE 46 U/L (5-85)
[2018-10-10 06:04] LABS: ALANINE AMINOTRANSFERASE 18 U/L (12-78); ALBUMIN 2.9 G/DL (3.4-5.0); ALBUMIN/GLOBULIN RATIO 0.6 (1.0-2.7); ALKALINE PHOSPHATASE 102 U/L (46-116); ANION GAP 13 mmol/L (5-15); ASPARTATE AMINO TRANSFERASE 20 U/L (15-37); BILIRUBIN,TOTAL 0.5 MG/DL (0.2-1.0); BLOOD UREA NITROGEN 83 mg/dL (7-18); CALCIUM 8.6 MG/DL (8.5-10.1); CARBON DIOXIDE 25 MMOL/L (21-32); CHLORIDE 94 MMOL/L (98-107); CREATININE 7.8 MG/DL (0.55-1.30); SODIUM 132 MMOL/L (136-145)
[2018-10-10 06:24] LABS: AMYLASE 102 U/L (25-115); CHOLESTEROL 128 MG/DL (< 200); FERRITIN 597 NG/ML (8-388); HDL CHOLESTEROL 54 MG/DL (40-60); PHOSPHORUS 8.6 MG/DL (2.5-4.9); TRIGLYCERIDES 77 MG/DL (30-150)
[2018-10-10 08:00] VITALS: BP 146/64
[2018-10-10] MEDS: Pantoprazole Inj IVP SCH ×2 (09:28→20:46)
--- NOTE | 2018-10-10 10:15 | Pre-Procedure Note/Attestation ---
Pre-Procedure Note/Attestation Complete Prior to Procedure Planned Procedure: right Procedure Narrative: Thoracentesis Indications for Procedure Pre-Operative Diagnosis: R pleural effusion Attestation I attest that I discussed the nature of the procedure; its benefits; risks and complications; and alternatives (and the risks and benefits of such alternatives ), prior to the procedure, with the patient (or the patient's legal telesales representative). I attest that, if there was a reasonable possibility of needing a blood transfusion, the patient (or the patient's legal telesales representative) was given the [facility] standardized written summary, pursuant to the Jeromy Jonathan Blood Safety Act ([place] Health and Safety Code # 1645, as amended). I attest that I re-evaluated the patient just prior to the surgery and that there has been no change in the patient's H&P, except as documented below: Zoran Mccain MD Oct 10, 2018 10:15
--- NOTE | 2018-10-10 10:24 | GI Progress Note ---
Assessment/Plan Problems: (1) Ascites ICD Codes: R18.8 - Other ascites SNOMED: 669501513 (2) Anemia ICD Codes: D64.9 - Anemia, unspecified SNOMED: 250162392 (3) Nausea and vomiting in adult patient ICD Codes: R11.2 - Nausea with vomiting, unspecified SNOMED: 88113733 (4) Aspiration pneumonia of right upper lobe ICD Codes: J69.0 - Pneumonitis due to inhalation of food and vomit SNOMED: 073978421, 218955619 (5) Pleural effusion on right ICD Codes: J90 - Pleural effusion, not elsewhere classified SNOMED: 65320576 (6) Acute pancreatitis ICD Codes: K85.90 - Acute pancreatitis without necrosis or infection, unspecified SNOMED: 081949680 Status: unchanged Status Narrative Discussed with Dr. Jack Assessment/Plan Lipase within normal limits Abdominal ultrasound reviewed, noted with small ascites thoracentesis scheduled for today Hepatitis panel pending Anemia workup reviewed Advance diet as tolerated Monitor H&H, PRN transfusions PPI Zofran as needed Rule out SBP Follow labs The patient was seen and examined at bedside and all new and available data was reviewed in the patients chart. I agree with the above findings, impression and plan. (Patient seen earlier today. Signature stamp does not reflect patient encounter time.). - Slava Jack MD Subjective Gastrointestinal/Abdominal: Reports: no symptoms Subjective Denies any abdominal pain Denies any nausea vomiting Objective Last 24 Hour Vital Signs Date Time Temp Pulse Resp B/P (MAP) Pulse Ox O2 Delivery O2 Flow Rate FiO2 10/10/18 08:02 75 18 97 Room Air 10/10/18 08:00 Room Air 10/10/18 08:00 97.9 78 24 146/64 (91) 98 10/10/18 07:51 72 16 98 Room Air 10/10/18 07:51 21 10/10/18 04:00 73 10/10/18 04:00 98.1 83 19 150/64 (92) 98 10/10/18 04:00 Room Air 10/10/18 03:20 78 18 95 Room Air 10/10/18 03:20 73 18 97 Room Air 10/10/18 00:00 71 10/10/18 00:00 Room Air 10/10/18 00:00 98.2 75 16 137/64 (88) 96 10/09/18 23:04 72 18 100 Room Air 21 10/09/18 23:00 69 18 99 Room Air 21 10/09/18 20:00 Room Air 10/09/18 20:00 98.1 73 16 140/66 (90) 98 10/09/18 20:00 70 10/09/18 19:17 70 20 100 Room Air 21 10/09/18 19:07 66 20 98 Room Air 21 10/09/18 16:00 65 10/09/18 16:00 Room Air 10/09/18 16:00 97.2 68 18 144/67 (92) 98 10/09/18 15:42 69 20 100 Room Air 21 10/09/18 15:27 66 20 99 Room Air 21 10/09/18 12:31 66 20 Room Air 10/09/18 12:12 68 20 100 Room Air 21 10/09/18 12:02 67 20 99 Room Air 21 10/09/18 12:00 96.4 64 16 125/59 (81) 99 10/09/18 12:00 63 10/09/18 12:00 Room Air 10/09/18 10:33 173/85 Intake and Output 10/09/18 10/10/18 19:00 07:00 Intake Total 655.000 ml 815 ml Output Total 0 ml 200 ml Balance 655.000 ml 615 ml Intake Oral 180 ml IV Total 655.000 ml 635 ml Output Urine Total 0 ml 200 ml # Voids 1 Laboratory Tests Test 10/09/18 17:50 10/10/18 04:10 10/10/18 05:00 Prothrombin Time 11.9 SEC (9.30-11.50) H Prothromb Time International Ratio 1.1 (0.9-1.1) Activated Partial Thromboplast Time 31 SEC (23-33) White Blood Count 6.5 K/UL (4.8-10.8) Red Blood Count 2.88 M/UL (4.70-6.10) L Hemoglobin 8.8 G/DL (14.2-18.0) L Hematocrit 26.0 % (42.0-52.0) L Mean Corpuscular Volume 90 FL (80-99) Mean Corpuscular Hemoglobin 30.4 PG (27.0-31.0) Mean Corpuscular Hemoglobin Concent 33.7 G/DL (32.0-36.0) Red Cell Distribution Width 13.2 % (11.6-14.8) Platelet Count 256 K/UL (150-450) Mean Platelet Volume 5.5 FL (6.5-10.1) L Neutrophils (%) (Auto) 57.2 % (45.0-75.0) Lymphocytes (%) (Auto) 25.8 % (20.0-45.0) Monocytes (%) (Auto) 10.8 % (1.0-10.0) H Eosinophils (%) (Auto) 4.8 % (0.0-3.0) H Basophils (%) (Auto) 1.4 % (0.0-2.0) Lactic Acid Level 1.10 mmol/L (0.4-2.0) Uric Acid 6.4 MG/DL (2.6-7.2) Phosphorus Level 8.6 MG/DL (2.5-4.9) H Magnesium Level 2.2 MG/DL (1.8-2.4) Iron Level 55 ug/dL (50-175) Total Iron Binding Capacity 237 ug/dL (250-450) L Percent Iron Saturation 23 % (15-50) Unsaturated Iron Binding 182 ug/dL (112-346) Ferritin 597 NG/ML (8-388) H Gamma Glutamyl Transpeptidase 46 U/L (5-85) Ammonia 24 umol/L (11-32) Total Creatine Kinase 48 U/L (26-308) Troponin I 0.017 ng/mL (0.000-0.056) C-Reactive Protein, Quantitative 0.5 mg/dL (0.00-0.90) Pro-B-Type Natriuretic Peptide 62810 pg/mL (0-125) H Triglycerides Level 77 MG/DL (30-150) Cholesterol Level 128 MG/DL (< 200) LDL Cholesterol 57 mg/dL (<100) HDL Cholesterol 54 MG/DL (40-60) Cholesterol/HDL Ratio 2.4 (3.3-4.4) L Amylase Level 102 U/L (25-115) Lipase 234 U/L (73-393) Carcinoembryonic Antigen Pending CA 19-9 Antigen Pending Thyroid Stimulating Hormone (TSH) 10.973 uiU/mL (0.358-3.740) Free Thyroxine 0.95 NG/DL (0.76-1.46) Hepatitis A IgM Antibody Pending Hepatitis B Surface Antigen Pending Hepatitis B Core IgM Antibody Pending Hepatitis C Antibody Pending Sodium Level 132 MMOL/L (136-145) L Potassium Level 5.0 MMOL/L (3.5-5.1) Chloride Level 94 MMOL/L (98-107) L Carbon Dioxide Level 25 MMOL/L (21-32) Anion Gap 13 mmol/L (5-15) Blood Urea Nitrogen 83 mg/dL (7-18) H Creatinine 7.8 MG/DL (0.55-1.30) H Estimat Glomerular Filtration Rate 7.1 mL/min (>60) Glucose Level 87 MG/DL (74-106) # Calcium Level 8.6 MG/DL (8.5-10.1) Total Bilirubin 0.5 MG/DL (0.2-1.0) Aspartate Amino Transf (AST/SGOT) 20 U/L (15-37) Alanine Aminotransferase (ALT/SGPT) 18 U/L (12-78) Alkaline Phosphatase 102 U/L (46-116) Total Protein 7.9 G/DL (6.4-8.2) Albumin 2.9 G/DL (3.4-5.0) L Globulin 5.0 g/dL Albumin/Globulin Ratio 0.6 (1.0-2.7) L Vitamin B12 Level 362 PG/ML (193-986) Folate 14.6 NG/ML (8.6-58.9) Height (Feet): 5 Height (Inches): 3.00 Weight (Pounds): 137 General Appearance: WD/WN, no apparent distress, alert Cardiovascular: normal rate Respiratory/Chest: normal breath sounds, no respiratory distress Abdominal Exam: normal bowel sounds, non tender, soft Extremities: normal range of motion, non-tender Kevin Soriano NP Oct 10, 2018 10:24
--- NOTE | 2018-10-10 11:01 | Diagnostic Imaging Report ---
APPROVED REPORT CPT Code: 23502 Present Symptoms Comments: BILATERAL LEGS PAIN. BILATERAL: Imaging reveals a patent deep venous system bilaterally. There is no evidence of thrombus within the femoral, popliteal or tibial segments. The greater saphenous veins are also within normal limits. Doppler indicates normal spontaneous flow within these segments.
[2018-10-10 12:00] VITALS: BP 138/70
--- NOTE | 2018-10-10 12:37 | Nephrology Progress Note ---
Assessment/Plan Problem List: (1) ESRD (end stage renal disease) on dialysis (2) Acute pancreatitis (3) Anemia due to chronic kidney disease (4) Pleural effusion on right Assessment ESRD Tue Marilee Sat - has left arm fistula HTN Anemia Pancreatitis Plan on clear liquids- HD today IV Protonix IV Fluids IV Reglan PRN per consultants Subjective ROS Limited/Unobtainable: No Constitutional: Reports: malaise Objective Objective Last 24 Hour Vital Signs Date Time Temp Pulse Resp B/P (MAP) Pulse Ox O2 Delivery O2 Flow Rate FiO2 10/10/18 11:46 77 16 96 Room Air 21 10/10/18 11:36 85 16 96 Room Air 21 10/10/18 11:36 21 10/10/18 08:02 75 18 97 Room Air 10/10/18 08:00 Room Air 10/10/18 08:00 78 10/10/18 08:00 97.9 78 24 146/64 (91) 98 10/10/18 07:51 72 16 98 Room Air 10/10/18 07:51 21 10/10/18 04:00 73 10/10/18 04:00 98.1 83 19 150/64 (92) 98 10/10/18 04:00 Room Air 10/10/18 03:20 78 18 95 Room Air 10/10/18 03:20 73 18 97 Room Air 21 10/10/18 00:00 71 10/10/18 00:00 Room Air 10/10/18 00:00 98.2 75 16 137/64 (88) 96 10/09/18 23:04 72 18 100 Room Air 21 10/09/18 23:00 69 18 99 Room Air 21 10/09/18 20:00 Room Air 10/09/18 20:00 98.1 73 16 140/66 (90) 98 10/09/18 20:00 70 10/09/18 19:17 70 20 100 Room Air 21 10/09/18 19:07 66 20 98 Room Air 21 10/09/18 16:00 65 10/09/18 16:00 Room Air 10/09/18 16:00 97.2 68 18 144/67 (92) 98 10/09/18 15:42 69 20 100 Room Air 21 10/09/18 15:27 66 20 99 Room Air 21 Intake and Output 10/09/18 10/10/18 19:00 07:00 Intake Total 655.000 ml 815 ml Output Total 0 ml 200 ml Balance 655.000 ml 615 ml Intake Oral 180 ml IV Total 655.000 ml 635 ml Output Urine Total 0 ml 200 ml # Voids 1 Laboratory Tests 10/09/18 17:50: Prothrombin Time 11.9H, Prothromb Time International Ratio 1.1, Activated Partial Thromboplast Time 31 10/10/18 04:10: White Blood Count 6.5, Red Blood Count 2.88L, Hemoglobin 8.8L, Hematocrit 26.0L , Mean Corpuscular Volume 90, Mean Corpuscular Hemoglobin 30.4, Mean Corpuscular Hemoglobin Concent 33.7, Red Cell Distribution Width 13.2, Platelet Count 256, Mean Platelet Volume 5.5L, Neutrophils (%) (Auto) 57.2, Lymphocytes ( %) (Auto) 25.8, Monocytes (%) (Auto) 10.8H, Eosinophils (%) (Auto) 4.8H, Basophils (%) (Auto) 1.4, Lactic Acid Level 1.10, Uric Acid 6.4, Phosphorus Level 8.6H, Magnesium Level 2.2, Iron Level 55, Total Iron Binding Capacity 237L , Percent Iron Saturation 23, Unsaturated Iron Binding 182, Ferritin 597H, Gamma Glutamyl Transpeptidase 46, Ammonia 24, Total Creatine Kinase 48, Troponin I 0.017, C-Reactive Protein, Quantitative 0.5, Pro-B-Type Natriuretic Peptide 97401L, Triglycerides Level 77, Cholesterol Level 128, LDL Cholesterol 57, HDL Cholesterol 54, Cholesterol/HDL Ratio 2.4L, Amylase Level 102, Lipase 234, Carcinoembryonic Antigen [Pending], CA 19-9 Antigen [Pending], Thyroid Stimulating Hormone (TSH) 10.973H, Free Thyroxine 0.95, Hepatitis A IgM Antibody [Pending], Hepatitis B Surface Antigen [Pending], Hepatitis B Core IgM Antibody [Pending], Hepatitis C Antibody [Pending] 10/10/18 05:00: Sodium Level 132L, Potassium Level 5.0, Chloride Level 94L, Carbon Dioxide Level 25, Anion Gap 13, Blood Urea Nitrogen 83H, Creatinine 7.8H, Estimat Glomerular Filtration Rate 7.1, Glucose Level 87#, Calcium Level 8.6, Total Bilirubin 0.5, Aspartate Amino Transf (AST/SGOT) 20, Alanine Aminotransferase ( ALT/SGPT) 18, Alkaline Phosphatase 102, Total Protein 7.9, Albumin 2.9L, Globulin 5.0, Albumin/Globulin Ratio 0.6L, Vitamin B12 Level 362, Folate 14.6 10/10/18 10:06: Body Fluid Glucose [Pending] Height (Feet): 5 Height (Inches): 3.00 Weight (Pounds): 137 Cardiovascular: normal rate Respiratory/Chest: decreased breath sounds Abdomen: distended Matthieu Gustafson MD Oct 10, 2018 12:37
--- NOTE | 2018-10-10 12:44 | Brief Operative Note ---
Immediate Post Operative Note Operative Note Pre-op Diagnosis: R pleural effusion Procedure: R thoracentesis Post-op Diagnosis: same as pre-op Surgeon: Theresa Templeton Specimen: yes - clear yellow fluid; specimen sent to lab Complications: none Condition: stable Fluids: None Implant(s) used?: No Zoran Templeton MD Oct 10, 2018 12:44
--- NOTE | 2018-10-10 14:04 | Diagnostic Imaging Report ---
Indications: Pleural effusion Technique: Ultrasound used to localize optimal puncture site. Sterile prepping and draping right chest. Local anesthesia with 1% lidocaine. Under real-time ultrasound guidance, puncture pleural space using thoracentesis needle. Stylet removed. Catheter placed to vacuum bottle suction. Total 2000 milliliters of fluid aspirated. Patient tolerated procedure well, without immediate complication. Findings: Followup sonography demonstrates complete resolution of pleural fluid. Impression: Successful ultrasound-guided thoracentesis, yielding 2000 milliliters of fluid
--- NOTE | 2018-10-10 14:21 | Diagnostic Imaging Report ---
Indication: Cough, status post thoracentesis Technique: One view of the chest Comparison: 10/09/2018 Findings: Interim resolution of previously demonstrated large right pleural effusion. There is slight prominence to the medial right major fissure, could indicate a small medial pneumothorax, but no other evidence of pneumothorax is demonstrated. There is slight residual hazy opacity to the right lung, could indicate some congestion. There is some atelectasis at the right lung base. Left lung and pleural space remain clear. The heart is enlarged. Impression: Resolved right pleural effusion, post thoracentesis Equivocal minimal medial right pneumothorax. Recommend follow-up radiograph to assess for stability or resolution. This has been ordered
--- NOTE | 2018-10-10 14:23 | Pulmonology Progress Note ---
Assessment/Plan Problems: (1) Pleural effusion on right (2) Acute pancreatitis (3) Nausea and vomiting in adult patient (4) Aspiration pneumonia of right upper lobe (5) Ascites (6) Anemia (7) ESRD (end stage renal disease) on dialysis (8) Anemia due to chronic kidney disease Assessment/Plan ASSESSMENT: The patient is a 58-year-old male with end-stage renal disease, on dialysis Tuesday, , Tuesday, presenting with abdominal pain and nausea secondary to pancreatitis, noted to have a large right-sided pleural effusion with subsequent compressive atelectasis and possible pneumonia. PROBLEM LIST: 1. Large right-sided effusion. 2. Compressive atelectasis. 3. Ground-glass opacity of the right lung, atelectasis versus infiltrate. 4. Left lower lobe pulmonary nodule. 5. Acute pancreatitis. 6. End-stage renal disease, on dialysis. TREATMENT PLAN: 1. Optimize pulmonary hygiene/mobilize as tolerated. 2. CXR 3. Continue antibiotics (vancomycin and Zosyn) per ID. 4. F/U pleural fluid studies 5. Follow up GI recs, clear liquid diet, pain control/supportive care 6. Monitor volumes and renal function. HD per renal with UF as able 7. DVT prophylaxis: Hep SQ 8. Continue sopbm-xvo-grasc and p.r.n. bronchodilators. Subjective Allergies: Coded Allergies: No Known Allergies (Unverified , 10/09/18) Subjective AFVSS on RA S/P 2L thora studies pending Getting HD No F/C/CP/SOB/N/V/D/C/abd pain/urinary co Objective Last 24 Hour Vital Signs Date Time Temp Pulse Resp B/P (MAP) Pulse Ox O2 Delivery O2 Flow Rate FiO2 10/10/18 12:00 97.4 76 25 138/70 (92) 100 10/10/18 12:00 Room Air 10/10/18 11:46 77 16 96 Room Air 21 10/10/18 11:36 85 16 96 Room Air 21 10/10/18 11:36 21 10/10/18 08:02 75 18 97 Room Air 21 10/10/18 08:00 Room Air 10/10/18 08:00 78 10/10/18 08:00 97.9 78 24 146/64 (91) 98 10/10/18 07:51 72 16 98 Room Air 21 10/10/18 07:51 21 10/10/18 04:00 73 10/10/18 04:00 98.1 83 19 150/64 (92) 98 10/10/18 04:00 Room Air 10/10/18 03:20 78 18 95 Room Air 21 10/10/18 03:20 73 18 97 Room Air 21 10/10/18 00:00 71 10/10/18 00:00 Room Air 10/10/18 00:00 98.2 75 16 137/64 (88) 96 10/09/18 23:04 72 18 100 Room Air 21 10/09/18 23:00 69 18 99 Room Air 21 10/09/18 20:00 Room Air 10/09/18 20:00 98.1 73 16 140/66 (90) 98 10/09/18 20:00 70 10/09/18 19:17 70 20 100 Room Air 21 10/09/18 19:07 66 20 98 Room Air 21 10/09/18 16:00 65 10/09/18 16:00 Room Air 10/09/18 16:00 97.2 68 18 144/67 (92) 98 10/09/18 15:42 69 20 100 Room Air 21 10/09/18 15:27 66 20 99 Room Air 21 Intake and Output 10/09/18 10/10/18 19:00 07:00 Intake Total 655.000 ml 815 ml Output Total 0 ml 200 ml Balance 655.000 ml 615 ml Intake Oral 180 ml IV Total 655.000 ml 635 ml Output Urine Total 0 ml 200 ml # Voids 1 General Appearance: WD/WN, no acute distress HEENT: normocephalic, atraumatic, anicteric, mucous membranes moist Respiratory/Chest: chest wall non-tender, lungs clear, normal breath sounds, no respiratory distress, no accessory muscle use Cardiovascular: normal peripheral pulses, normal rate, regular rhythm Abdomen: normal bowel sounds, soft, non tender, no organomegaly, non distended , no mass Extremities: no cyanosis, no clubbing, no edema Microbiology Date/Time Source Procedure Growth Status 10/09/18 07:20 Rectum Received Laboratory Tests 10/09/18 17:50: Prothrombin Time 11.9H, Prothromb Time International Ratio 1.1, Activated Partial Thromboplast Time 31 10/10/18 04:10: White Blood Count 6.5, Red Blood Count 2.88L, Hemoglobin 8.8L, Hematocrit 26.0L , Mean Corpuscular Volume 90, Mean Corpuscular Hemoglobin 30.4, Mean Corpuscular Hemoglobin Concent 33.7, Red Cell Distribution Width 13.2, Platelet Count 256, Mean Platelet Volume 5.5L, Neutrophils (%) (Auto) 57.2, Lymphocytes ( %) (Auto) 25.8, Monocytes (%) (Auto) 10.8H, Eosinophils (%) (Auto) 4.8H, Basophils (%) (Auto) 1.4, Lactic Acid Level 1.10, Uric Acid 6.4, Phosphorus Level 8.6H, Magnesium Level 2.2, Iron Level 55, Total Iron Binding Capacity 237L , Percent Iron Saturation 23, Unsaturated Iron Binding 182, Ferritin 597H, Gamma Glutamyl Transpeptidase 46, Ammonia 24, Total Creatine Kinase 48, Troponin I 0.017, C-Reactive Protein, Quantitative 0.5, Pro-B-Type Natriuretic Peptide [id number], Triglycerides Level 77, Cholesterol Level 128, LDL Cholesterol 57, HDL Cholesterol 54, Cholesterol/HDL Ratio 2.4L, Amylase Level 102, Lipase 234, Carcinoembryonic Antigen [Pending], CA 19-9 Antigen [Pending], Thyroid Stimulating Hormone (TSH) 10.973H, Free Thyroxine 0.95, Hepatitis A IgM Antibody [Pending], Hepatitis B Surface Antigen [Pending], Hepatitis B Core IgM Antibody [Pending], Hepatitis C Antibody [Pending] 10/10/18 05:00: Sodium Level 132L, Potassium Level 5.0, Chloride Level 94L, Carbon Dioxide Level 25, Anion Gap 13, Blood Urea Nitrogen 83H, Creatinine 7.8H, Estimat Glomerular Filtration Rate 7.1, Glucose Level 87#, Calcium Level 8.6, Total Bilirubin 0.5, Aspartate Amino Transf (AST/SGOT) 20, Alanine Aminotransferase ( ALT/SGPT) 18, Alkaline Phosphatase 102, Total Protein 7.9, Albumin 2.9L, Globulin 5.0, Albumin/Globulin Ratio 0.6L, Vitamin B12 Level 362, Folate 14.6 10/10/18 10:06: Body Fluid Glucose [Pending] Current Medications Medications (Trade) Dose Ordered Sig/Anish Route PRN Reason Start Time Stop Time Status Last Admin Dose Admin Albuterol/ Ipratropium (Albuterol/ Ipratropium) 3 ml Q4HRT HHN 10/09/18 11:00 10/14/18 10:59 10/10/18 11:35 Epoetin Isidro (Procrit (for ESRD on dialysis)) 10,000 units TUE-TUE-TUE SUBQ 10/11/18 21:00 11/10/18 20:59 Hydralazine HCl (Apresoline) 10 mg Q4H PRN IV bp over 160 syst 10/09/18 10:00 11/08/18 09:59 Hydromorphone HCl (Dilaudid) 0.5 mg Q4H PRN IVP For Pain 10/09/18 10:15 10/16/18 10:14 Iron Sucrose 100 mg/Sodium Chloride 55 ml @ 200 mls/hr BEDTIME IVPB 10/10/18 21:00 10/12/18 21:17 UNV Metoclopramide HCl (Reglan) 10 mg Q6H PRN IVP Nausea & Vomiting 10/09/18 10:15 11/08/18 10:14 Pantoprazole (Protonix) 40 mg EVERY 12 HOURS IVP 10/09/18 10:15 11/08/18 10:14 10/10/18 09:28 Piperacillin Sod/ Tazobactam Sod 2.25 gm/Dextrose 55 ml @ 110 mls/hr Q8HR IVPB 10/09/18 09:00 10/14/18 08:59 10/10/18 05:26 Sodium Chloride 1,000 ml @ 50 mls/hr Q20H IV 10/09/18 10:15 11/08/18 10:14 10/10/18 06:31 Vancomycin HCl (Vanco rx to dose) 1 ea DAILY PRN MISC Per rx protocol 10/09/18 09:30 11/08/18 09:29 Gagan Knight MD Oct 10, 2018 14:23
[2018-10-10 16:00] VITALS: BP 148/71
--- NOTE | 2018-10-10 16:35 | General Progress Note ---
Assessment/Plan Assessment/Plan S: I am feeling better O: still in sob. denies chest pain PHYSICAL EXAMINATION:HEAD AND NECK: Atraumatic and normocephalic. CHEST: Lack of breathing in the right side and bronchial breathing sounds in the other side.NEUROLOGIC: The patient is awake, alert, and oriented x3. MUSCULOSKELETAL: Positive for the AV fistula in the left upper arm. No tenderness. No redness.NEUROLOGIC: The patient is delirious. Meds: reviewed and reconciled in the chart ASSESSMENT AND PLAN: 1. Sepsis. 2. Acute encephalopathy. 3. Hypoxemic respiratory failure. 4. Right-sided pleural effusion. 5. End-stage renal disease, on hemodialysis. 6. Anemia. 7. GI and DVT prophylaxis. PLAN OF CARE: Post Thoracenthesis current pulmonary mgt Subjective Allergies: Coded Allergies: No Known Allergies (Unverified , 10/09/18) Objective Last 24 Hour Vital Signs Date Time Temp Pulse Resp B/P (MAP) Pulse Ox O2 Delivery O2 Flow Rate FiO2 10/10/18 15:21 Room Air 10/10/18 15:21 Room Air 10/10/18 12:00 97.4 76 25 138/70 (92) 100 10/10/18 12:00 Room Air 10/10/18 12:00 74 10/10/18 11:46 77 16 96 Room Air 10/10/18 11:36 85 16 96 Room Air 21 10/10/18 11:36 21 10/10/18 08:02 75 18 97 Room Air 10/10/18 08:00 Room Air 10/10/18 08:00 78 10/10/18 08:00 97.9 78 24 146/64 (91) 98 10/10/18 07:51 72 16 98 Room Air 21 10/10/18 07:51 21 10/10/18 04:00 73 10/10/18 04:00 98.1 83 19 150/64 (92) 98 10/10/18 04:00 Room Air 10/10/18 03:20 78 18 95 Room Air 21 10/10/18 03:20 73 18 97 Room Air 21 10/10/18 00:00 71 10/10/18 00:00 Room Air 10/10/18 00:00 98.2 75 16 137/64 (88) 96 10/09/18 23:04 72 18 100 Room Air 21 10/09/18 23:00 69 18 99 Room Air 21 10/09/18 20:00 Room Air 10/09/18 20:00 98.1 73 16 140/66 (90) 98 10/09/18 20:00 70 10/09/18 19:17 70 20 100 Room Air 21 10/09/18 19:07 66 20 98 Room Air 21 Intake and Output 10/09/18 10/10/18 19:00 07:00 Intake Total 655.000 ml 815 ml Output Total 0 ml 200 ml Balance 655.000 ml 615 ml Intake Oral 180 ml IV Total 655.000 ml 635 ml Output Urine Total 0 ml 200 ml # Voids 1 Laboratory Tests 10/09/18 17:50: Prothrombin Time 11.9H, Prothromb Time International Ratio 1.1, Activated Partial Thromboplast Time 31 10/10/18 04:10: White Blood Count 6.5, Red Blood Count 2.88L, Hemoglobin 8.8L, Hematocrit 26.0L , Mean Corpuscular Volume 90, Mean Corpuscular Hemoglobin 30.4, Mean Corpuscular Hemoglobin Concent 33.7, Red Cell Distribution Width 13.2, Platelet Count 256, Mean Platelet Volume 5.5L, Neutrophils (%) (Auto) 57.2, Lymphocytes ( %) (Auto) 25.8, Monocytes (%) (Auto) 10.8H, Eosinophils (%) (Auto) 4.8H, Basophils (%) (Auto) 1.4, Lactic Acid Level 1.10, Uric Acid 6.4, Phosphorus Level 8.6H, Magnesium Level 2.2, Iron Level 55, Total Iron Binding Capacity 237L , Percent Iron Saturation 23, Unsaturated Iron Binding 182, Ferritin 597H, Gamma Glutamyl Transpeptidase 46, Ammonia 24, Total Creatine Kinase 48, Troponin I 0.017, C-Reactive Protein, Quantitative 0.5, Pro-B-Type Natriuretic Peptide 35981L, Triglycerides Level 77, Cholesterol Level 128, LDL Cholesterol 57, HDL Cholesterol 54, Cholesterol/HDL Ratio 2.4L, Amylase Level 102, Lipase 234, Carcinoembryonic Antigen [Pending], CA 19-9 Antigen [Pending], Thyroid Stimulating Hormone (TSH) 10.973H, Free Thyroxine 0.95, Hepatitis A IgM Antibody [Pending], Hepatitis B Surface Antigen [Pending], Hepatitis B Core IgM Antibody [Pending], Hepatitis C Antibody [Pending] 10/10/18 05:00: Sodium Level 132L, Potassium Level 5.0, Chloride Level 94L, Carbon Dioxide Level 25, Anion Gap 13, Blood Urea Nitrogen 83H, Creatinine 7.8H, Estimat Glomerular Filtration Rate 7.1, Glucose Level 87#, Calcium Level 8.6, Total Bilirubin 0.5, Aspartate Amino Transf (AST/SGOT) 20, Alanine Aminotransferase ( ALT/SGPT) 18, Alkaline Phosphatase 102, Total Protein 7.9, Albumin 2.9L, Globulin 5.0, Albumin/Globulin Ratio 0.6L, Vitamin B12 Level 362, Folate 14.6 10/10/18 10:06: Body Fluid Glucose [Pending] Height (Feet): 5 Height (Inches): 3.00 Weight (Pounds): 137 Cortney Grullon MD Oct 10, 2018 16:35
--- NOTE | 2018-10-10 16:57 | Diagnostic Imaging Report ---
Indication: Post thoracentesis, abnormal recent chest radiograph Technique: One view of the chest Comparison: 4 hours earlier Findings: Previously demonstrated prominence of the medial fissure is no longer evident. No evidence of pneumothorax currently. There is interim development of consolidation of much of the right lower lobe. The right upper lung, left lung and pleural space remain clear. The heart is enlarged. Impression: No definite pneumothorax Increasing opacification of the right lower lobe. Given history of recent large volume thoracentesis, this most likely represents reexpansion pulmonary edema, although pneumonia also possible. Correlate with clinical findings
--- NOTE | 2018-10-10 17:33 | Infectious Diseases Prog Note ---
Assessment/Plan Problems: (1) Aspiration pneumonia of right upper lobe Assessment & Plan: continue zosyn and vancomycin empirically , aspiration precaution and keep HOB> 30 degree all the time (2) Pleural effusion on right Assessment & Plan: parapneumonic VS pancreatitis related VS volume overload. S/ P thoracentesis and fluids to be sent for cytology, cell count with DIFF, culture/fungal, PH, amylase, LDH (3) Acute pancreatitis Assessment & Plan: continue supportive care , monitor lipase level (4) Nausea and vomiting in adult patient Assessment & Plan: due to the above, continue supportive care Subjective Constitutional: Reports: no symptoms HEENT: Reports: no symptoms Respiratory: Reports: no symptoms Breasts: Reports: no symptoms Cardiovascular: Reports: no symptoms Gastrointestinal/Abdominal: Reports: no symptoms Genitourinary: Reports: no symptoms Neurologic: Reports: no symptoms Psychiatric: Reports: no symptoms Skin: Reports: no symptoms Endocrine: Reports: no symptoms Hematologic: Reports: no symptoms Musculoskeletal: Reports: no symptoms Allergies: Coded Allergies: No Known Allergies (Unverified , 10/09/18) Subjective had right thoracentesis with removal of 2000 cc of clear fluids from the right pleural space Objective Vital Signs Last 24 Hour Vital Signs Date Time Temp Pulse Resp B/P (MAP) Pulse Ox O2 Delivery O2 Flow Rate FiO2 10/10/18 15:21 Room Air 10/10/18 15:21 Room Air 10/10/18 12:00 97.4 76 25 138/70 (92) 100 10/10/18 12:00 Room Air 10/10/18 12:00 74 10/10/18 11:46 77 16 96 Room Air 10/10/18 11:36 85 16 96 Room Air 10/10/18 11:36 21 10/10/18 08:02 75 18 97 Room Air 10/10/18 08:00 Room Air 10/10/18 08:00 78 10/10/18 08:00 97.9 78 24 146/64 (91) 98 10/10/18 07:51 72 16 98 Room Air 10/10/18 07:51 21 10/10/18 04:00 73 10/10/18 04:00 98.1 83 19 150/64 (92) 98 10/10/18 04:00 Room Air 10/10/18 03:20 78 18 95 Room Air 10/10/18 03:20 73 18 97 Room Air 21 10/10/18 00:00 71 10/10/18 00:00 Room Air 10/10/18 00:00 98.2 75 16 137/64 (88) 96 10/09/18 23:04 72 18 100 Room Air 21 10/09/18 23:00 69 18 99 Room Air 21 10/09/18 20:00 Room Air 10/09/18 20:00 98.1 73 16 140/66 (90) 98 10/09/18 20:00 70 10/09/18 19:17 70 20 100 Room Air 21 10/09/18 19:07 66 20 98 Room Air 21 Height (Feet): 5 Height (Inches): 3.00 Weight (Pounds): 137 General Appearance: WD/WN, no acute distress HEENT: normocephalic, atraumatic, anicteric, mucous membranes moist, PERRL, EOMI, pharynx normal, supple, no JVD Respiratory/Chest: chest wall non-tender, normal breath sounds, no respiratory distress, no accessory muscle use, decreased breath sounds Cardiovascular: normal peripheral pulses, normal rate, regular rhythm, no gallop/murmur, no JVD Abdomen: normal bowel sounds, soft, non tender, no organomegaly, non distended , no mass, no scars Genitourinary: normal external genitalia Extremities: no cyanosis, no clubbing Skin: no rash, no lesions, no ulcers Neurologic/Psychiatric: alert, oriented x 3, responsive Lymphatic: no neck adenopathy, no groin adenopathy Musculoskeletal: normal muscle bulk, no effusion Microbiology Date/Time Source Procedure Growth Status 10/09/18 07:20 Rectum Received Laboratory Tests Test 10/09/18 17:50 10/10/18 04:10 10/10/18 05:00 10/10/18 10:06 Prothrombin Time 11.9 SEC (9.30-11.50) H Prothromb Time International Ratio 1.1 (0.9-1.1) Activated Partial Thromboplast Time 31 SEC (23-33) White Blood Count 6.5 K/UL (4.8-10.8) Red Blood Count 2.88 M/UL (4.70-6.10) L Hemoglobin 8.8 G/DL (14.2-18.0) L Hematocrit 26.0 % (42.0-52.0) L Mean Corpuscular Volume 90 FL (80-99) Mean Corpuscular Hemoglobin 30.4 PG (27.0-31.0) Mean Corpuscular Hemoglobin Concent 33.7 G/DL (32.0-36.0) Red Cell Distribution Width 13.2 % (11.6-14.8) Platelet Count 256 K/UL (150-450) Mean Platelet Volume 5.5 FL (6.5-10.1) L Neutrophils (%) (Auto) 57.2 % (45.0-75.0) Lymphocytes (%) (Auto) 25.8 % (20.0-45.0) Monocytes (%) (Auto) 10.8 % (1.0-10.0) H Eosinophils (%) (Auto) 4.8 % (0.0-3.0) H Basophils (%) (Auto) 1.4 % (0.0-2.0) Lactic Acid Level 1.10 mmol/L (0.4-2.0) Uric Acid 6.4 MG/DL (2.6-7.2) Phosphorus Level 8.6 MG/DL (2.5-4.9) H Magnesium Level 2.2 MG/DL (1.8-2.4) Iron Level 55 ug/dL (50-175) Total Iron Binding Capacity 237 ug/dL (250-450) L Percent Iron Saturation 23 % (15-50) Unsaturated Iron Binding 182 ug/dL (112-346) Ferritin 597 NG/ML (8-388) H Gamma Glutamyl Transpeptidase 46 U/L (5-85) Ammonia 24 umol/L (11-32) Total Creatine Kinase 48 U/L (26-308) Troponin I 0.017 ng/mL (0.000-0.056) C-Reactive Protein, Quantitative 0.5 mg/dL (0.00-0.90) Pro-B-Type Natriuretic Peptide 48734 pg/mL (0-125) H Triglycerides Level 77 MG/DL (30-150) Cholesterol Level 128 MG/DL (< 200) LDL Cholesterol 57 mg/dL (<100) HDL Cholesterol 54 MG/DL (40-60) Cholesterol/HDL Ratio 2.4 (3.3-4.4) L Amylase Level 102 U/L (25-115) Lipase 234 U/L (73-393) Carcinoembryonic Antigen Pending CA 19-9 Antigen Pending Thyroid Stimulating Hormone (TSH) 10.973 uiU/mL (0.358-3.740) Free Thyroxine 0.95 NG/DL (0.76-1.46) Hepatitis A IgM Antibody Pending Hepatitis B Surface Antigen Pending Hepatitis B Core IgM Antibody Pending Hepatitis C Antibody Pending Sodium Level 132 MMOL/L (136-145) L Potassium Level 5.0 MMOL/L (3.5-5.1) Chloride Level 94 MMOL/L (98-107) L Carbon Dioxide Level 25 MMOL/L (21-32) Anion Gap 13 mmol/L (5-15) Blood Urea Nitrogen 83 mg/dL (7-18) H Creatinine 7.8 MG/DL (0.55-1.30) H Estimat Glomerular Filtration Rate 7.1 mL/min (>60) Glucose Level 87 MG/DL (74-106) # Calcium Level 8.6 MG/DL (8.5-10.1) Total Bilirubin 0.5 MG/DL (0.2-1.0) Aspartate Amino Transf (AST/SGOT) 20 U/L (15-37) Alanine Aminotransferase (ALT/SGPT) 18 U/L (12-78) Alkaline Phosphatase 102 U/L (46-116) Total Protein 7.9 G/DL (6.4-8.2) Albumin 2.9 G/DL (3.4-5.0) L Globulin 5.0 g/dL Albumin/Globulin Ratio 0.6 (1.0-2.7) L Vitamin B12 Level 362 PG/ML (193-986) Folate 14.6 NG/ML (8.6-58.9) Body Fluid Glucose Pending Current Medications Medications (Trade) Dose Ordered Sig/Anish Route PRN Reason Start Time Stop Time Status Last Admin Dose Admin Albuterol/ Ipratropium (Albuterol/ Ipratropium) 3 ml Q4HRT HHN 10/09/18 11:00 10/14/18 10:59 10/10/18 11:35 Epoetin Isidro (Procrit (for ESRD on dialysis)) 10,000 units TUE-TUE-TUE SUBQ 10/11/18 21:00 11/10/18 20:59 Heparin Sodium (Porcine) (Heparin 5000 units/ml) 5,000 units EVERY 12 HOURS SUBQ 10/11/18 09:00 11/10/18 08:59 Hydralazine HCl (Apresoline) 10 mg Q4H PRN IV bp over 160 syst 10/09/18 10:00 11/08/18 09:59 Hydromorphone HCl (Dilaudid) 0.5 mg Q4H PRN IVP For Pain 10/09/18 10:15 10/16/18 10:14 Iron Sucrose 100 mg/Sodium Chloride 55 ml @ 200 mls/hr BEDTIME IV 10/10/18 21:00 10/12/18 21:17 Metoclopramide HCl (Reglan) 10 mg Q6H PRN IVP Nausea & Vomiting 10/09/18 10:15 11/08/18 10:14 Pantoprazole (Protonix) 40 mg EVERY 12 HOURS IVP 10/09/18 10:15 11/08/18 10:14 10/10/18 09:28 Piperacillin Sod/ Tazobactam Sod 2.25 gm/Dextrose 55 ml @ 110 mls/hr Q8HR IVPB 10/09/18 09:00 10/14/18 08:59 10/10/18 16:29 Sodium Chloride 1,000 ml @ 50 mls/hr Q20H IV 10/09/18 10:15 11/08/18 10:14 10/10/18 06:31 Vancomycin HCl (Vanco rx to dose) 1 ea DAILY PRN MISC Per rx protocol 10/09/18 09:30 11/08/18 09:29 Jeff Mendez M.D. Oct 10, 2018 17:33
[2018-10-10 20:00] VITALS: BP 134/56
[2018-10-11] VITALS: BP 123/52
[2018-10-11] MEDS: Albuterol/Ipratropium 3ml neb HHN SCH ×6 (03:01→23:07)
[2018-10-11 04:00] VITALS: BP 137/63
[2018-10-11 05:22] LABS: BASOPHILS % (AUTO) 1.3 % (0.0-2.0); EOSINOPHILS % (AUTO) 4.2 % (0.0-3.0); HEMATOCRIT 27.7 % (42.0-52.0); HEMOGLOBIN 9.4 G/DL (14.2-18.0); LYMPHOCYTES % (AUTO) 23.3 % (20.0-45.0); MEAN CORPUSCULAR VOLUME 91 FL (80-99); MONOCYTES % (AUTO) 10.3 % (1.0-10.0); NEUTROPHILS % (AUTO) 60.9 % (45.0-75.0); PLATELET COUNT 269 K/UL (150-450); RED BLOOD COUNT 3.06 M/UL (4.70-6.10); RED CELL DISTRIBUTION WIDTH 13.2 % (11.6-14.8); WHITE BLOOD COUNT 5.7 K/UL (4.8-10.8)
[2018-10-11] MEDS: Piperacillin/Tazobactam 2.25 GM in D5W 55 ML IVPB SCH ×3 (05:28→22:00)
[2018-10-11 05:58] LABS: ALANINE AMINOTRANSFERASE 16 U/L (12-78); ALBUMIN 2.9 G/DL (3.4-5.0); ALBUMIN/GLOBULIN RATIO 0.6 (1.0-2.7); ALKALINE PHOSPHATASE 89 U/L (46-116); ANION GAP 10 mmol/L (5-15); ASPARTATE AMINO TRANSFERASE 19 U/L (15-37); BILIRUBIN,TOTAL 0.6 MG/DL (0.2-1.0); BLOOD UREA NITROGEN 47 mg/dL (7-18); CALCIUM 8.5 MG/DL (8.5-10.1); CARBON DIOXIDE 28 MMOL/L (21-32); CHLORIDE 98 MMOL/L (98-107); POTASSIUM 4.1 MMOL/L (3.5-5.1); SODIUM 136 MMOL/L (136-145)
[2018-10-11 08:00] VITALS: BP 150/69
[2018-10-11] MEDS ORDERED: Heparin 5000 units/ml inj SUBQ SCH (09:00)
[2018-10-11] MEDS: Pantoprazole Inj IVP SCH (09:01)
--- NOTE | 2018-10-11 11:06 | GI Progress Note ---
Assessment/Plan Problems: (1) Ascites ICD Codes: R18.8 - Other ascites SNOMED: 316614765 (2) Anemia ICD Codes: D64.9 - Anemia, unspecified SNOMED: 538550917 (3) Nausea and vomiting in adult patient ICD Codes: R11.2 - Nausea with vomiting, unspecified SNOMED: 30463899 (4) Aspiration pneumonia of right upper lobe ICD Codes: J69.0 - Pneumonitis due to inhalation of food and vomit SNOMED: 459735634, 103503763 (5) Pleural effusion on right ICD Codes: J90 - Pleural effusion, not elsewhere classified SNOMED: 57432303 (6) Acute pancreatitis ICD Codes: K85.90 - Acute pancreatitis without necrosis or infection, unspecified SNOMED: 345539929 Status: stable Status Narrative Discussed with Dr. Jack Assessment/Plan Lipase within normal limits Abdominal ultrasound reviewed, noted with small ascites thoracentesis scheduled for today Hepatitis panel pending Anemia workup reviewed renal diet Monitor H&H, PRN transfusions PPI Zofran as needed pain mgmt Follow labs Pulmonary care The patient was seen and examined at bedside and all new and available data was reviewed in the patients chart. I agree with the above findings, impression and plan. (Patient seen earlier today. Signature stamp does not reflect patient encounter time.). - Slava Jack MD Subjective Subjective Denies any abdominal pain Denies any nausea vomiting Objective Last 24 Hour Vital Signs Date Time Temp Pulse Resp B/P (MAP) Pulse Ox O2 Delivery O2 Flow Rate FiO2 10/11/18 11:02 21 10/11/18 11:00 75 18 98 Room Air 10/11/18 08:30 Room Air 10/11/18 08:11 59 20 100 Room Air 21 10/11/18 08:06 21 10/11/18 08:01 73 16 95 Room Air 21 10/11/18 08:00 97.7 73 18 150/69 (96) 98 10/11/18 07:27 73 10/11/18 04:00 73 10/11/18 04:00 97.9 75 20 137/63 (87) 99 10/11/18 04:00 Room Air 10/11/18 03:11 75 18 100 Room Air 21 10/11/18 03:01 71 18 98 Room Air 21 10/11/18 03:01 21 10/11/18 00:00 75 10/11/18 00:00 98.0 72 20 123/52 (75) 99 10/11/18 00:00 Room Air 10/10/18 23:21 76 18 100 Room Air 21 10/10/18 23:11 75 18 97 Room Air 21 10/10/18 23:11 21 10/10/18 20:00 Room Air 10/10/18 20:00 80 10/10/18 20:00 98.2 80 20 134/56 (82) 96 10/10/18 19:21 81 18 100 Room Air 21 10/10/18 19:11 86 16 98 Room Air 21 10/10/18 19:11 21 10/10/18 16:00 98.6 76 23 148/71 (96) 99 10/10/18 16:00 Room Air 10/10/18 16:00 74 10/10/18 15:21 Room Air 10/10/18 15:21 Room Air 10/10/18 12:00 97.4 76 25 138/70 (92) 100 10/10/18 12:00 Room Air 10/10/18 12:00 74 10/10/18 11:46 77 16 96 Room Air 21 10/10/18 11:36 85 16 96 Room Air 10/10/18 11:36 21 Intake and Output 10/10/18 10/11/18 19:00 07:00 Intake Total 2705 ml 415 ml Output Total 2000 ml 0 ml Balance 705 ml 415 ml Intake Oral 450 ml IV Total 2255 ml 415 ml Output Urine Total 0 ml Hemodialysis UF 2000 ml # Voids 1 Laboratory Tests Test 10/11/18 04:10 10/11/18 05:00 White Blood Count 5.7 K/UL (4.8-10.8) Red Blood Count 3.06 M/UL (4.70-6.10) L Hemoglobin 9.4 G/DL (14.2-18.0) L Hematocrit 27.7 % (42.0-52.0) L Mean Corpuscular Volume 91 FL (80-99) Mean Corpuscular Hemoglobin 30.6 PG (27.0-31.0) Mean Corpuscular Hemoglobin Concent 33.8 G/DL (32.0-36.0) Red Cell Distribution Width 13.2 % (11.6-14.8) Platelet Count 269 K/UL (150-450) Mean Platelet Volume 5.6 FL (6.5-10.1) L Neutrophils (%) (Auto) 60.9 % (45.0-75.0) Lymphocytes (%) (Auto) 23.3 % (20.0-45.0) Monocytes (%) (Auto) 10.3 % (1.0-10.0) H Eosinophils (%) (Auto) 4.2 % (0.0-3.0) H Basophils (%) (Auto) 1.3 % (0.0-2.0) Random Vancomycin Level 13.7 ug/mL Sodium Level 136 MMOL/L (136-145) Potassium Level 4.1 MMOL/L (3.5-5.1) Chloride Level 98 MMOL/L (98-107) Carbon Dioxide Level 28 MMOL/L (21-32) Anion Gap 10 mmol/L (5-15) Blood Urea Nitrogen 47 mg/dL (7-18) H Creatinine 6.0 MG/DL (0.55-1.30) H Estimat Glomerular Filtration Rate 9.7 mL/min (>60) Glucose Level 80 MG/DL (74-106) Calcium Level 8.5 MG/DL (8.5-10.1) Total Bilirubin 0.6 MG/DL (0.2-1.0) Aspartate Amino Transf (AST/SGOT) 19 U/L (15-37) Alanine Aminotransferase (ALT/SGPT) 16 U/L (12-78) Alkaline Phosphatase 89 U/L (46-116) Total Protein 8.0 G/DL (6.4-8.2) Albumin 2.9 G/DL (3.4-5.0) L Globulin 5.1 g/dL Albumin/Globulin Ratio 0.6 (1.0-2.7) L Height (Feet): 5 Height (Inches): 3.00 Weight (Pounds): 123 General Appearance: WD/WN, no apparent distress, alert Cardiovascular: normal rate Respiratory/Chest: normal breath sounds, no respiratory distress Abdominal Exam: normal bowel sounds, non tender, soft Extremities: normal range of motion, non-tender Kevin Soriano [employer] Oct 11, 2018 11:06
--- NOTE | 2018-10-11 11:26 | General Progress Note ---
Assessment/Plan Assessment/Plan S: I am feeling better O: still in sob. denies chest pain PHYSICAL EXAMINATION:HEAD AND NECK: Atraumatic and normocephalic. CHEST: Lack of breathing in the right side and bronchial breathing sounds in the other side.NEUROLOGIC: The patient is awake, alert, and oriented x3. MUSCULOSKELETAL: Positive for the AV fistula in the left upper arm. No tenderness. No redness.NEUROLOGIC: The patient is delirious. Meds: reviewed and reconciled in the chart ASSESSMENT AND PLAN: 1. Sepsis. 2. Acute encephalopathy. 3. Hypoxemic respiratory failure. 4. Right-sided pleural effusion post drainage 5. End-stage renal disease, on hemodialysis. 6. Anemia. 7. GI and DVT prophylaxis. PLAN OF CARE: Post Thoracenthesis current pulmonary mgt c/w HD very high risk for aspiration Recommend PEG-T placement Subjective Allergies: Coded Allergies: No Known Allergies (Unverified , 10/09/18) Objective Last 24 Hour Vital Signs Date Time Temp Pulse Resp B/P (MAP) Pulse Ox O2 Delivery O2 Flow Rate FiO2 10/11/18 11:02 21 10/11/18 11:00 75 18 98 Room Air 21 10/11/18 08:30 Room Air 10/11/18 08:11 59 20 100 Room Air 10/11/18 08:06 21 10/11/18 08:01 73 16 95 Room Air 10/11/18 08:00 97.7 73 18 150/69 (96) 98 10/11/18 07:27 73 10/11/18 04:00 73 10/11/18 04:00 97.9 75 20 137/63 (87) 99 10/11/18 04:00 Room Air 10/11/18 03:11 75 18 100 Room Air 10/11/18 03:01 71 18 98 Room Air 21 10/11/18 03:01 21 10/11/18 00:00 75 10/11/18 00:00 98.0 72 20 123/52 (75) 99 10/11/18 00:00 Room Air 10/10/18 23:21 76 18 100 Room Air 21 10/10/18 23:11 75 18 97 Room Air 21 10/10/18 23:11 21 10/10/18 20:00 Room Air 10/10/18 20:00 80 10/10/18 20:00 98.2 80 20 134/56 (82) 96 10/10/18 19:21 81 18 100 Room Air 21 10/10/18 19:11 86 16 98 Room Air 21 10/10/18 19:11 21 10/10/18 16:00 98.6 76 23 148/71 (96) 99 10/10/18 16:00 Room Air 10/10/18 16:00 74 10/10/18 15:21 Room Air 10/10/18 15:21 Room Air 10/10/18 12:00 97.4 76 25 138/70 (92) 100 10/10/18 12:00 Room Air 10/10/18 12:00 74 10/10/18 11:46 77 16 96 Room Air 21 10/10/18 11:36 85 16 96 Room Air 21 10/10/18 11:36 21 Intake and Output 10/10/18 10/11/18 19:00 07:00 Intake Total 2705 ml 415 ml Output Total 2000 ml 0 ml Balance 705 ml 415 ml Intake Oral 450 ml IV Total 2255 ml 415 ml Output Urine Total 0 ml Hemodialysis UF 2000 ml # Voids 1 Laboratory Tests 10/11/18 04:10: White Blood Count 5.7, Red Blood Count 3.06L, Hemoglobin 9.4L, Hematocrit 27.7L , Mean Corpuscular Volume 91, Mean Corpuscular Hemoglobin 30.6, Mean Corpuscular Hemoglobin Concent 33.8, Red Cell Distribution Width 13.2, Platelet Count 269, Mean Platelet Volume 5.6L, Neutrophils (%) (Auto) 60.9, Lymphocytes ( %) (Auto) 23.3, Monocytes (%) (Auto) 10.3H, Eosinophils (%) (Auto) 4.2H, Basophils (%) (Auto) 1.3, Random Vancomycin Level 13.7 10/11/18 05:00: Sodium Level 136, Potassium Level 4.1, Chloride Level 98, Carbon Dioxide Level 28, Anion Gap 10, Blood Urea Nitrogen 47H, Creatinine 6.0H, Estimat Glomerular Filtration Rate 9.7, Glucose Level 80, Calcium Level 8.5, Total Bilirubin 0.6, Aspartate Amino Transf (AST/SGOT) 19, Alanine Aminotransferase (ALT/SGPT) 16, Alkaline Phosphatase 89, Total Protein 8.0, Albumin 2.9L, Globulin 5.1, Albumin/ Globulin Ratio 0.6L Height (Feet): 5 Height (Inches): 3.00 Weight (Pounds): 123 Cortney Grullon MD Oct 11, 2018 11:26
[2018-10-11 12:00] VITALS: BP 135/55
[2018-10-11] MEDS ORDERED: Vancomycin 750mg/NS 275ml IVPB ONE ×2 (12:00)
[2018-10-11] MEDS ORDERED: Hydromorphone 0.5mg/0.5ml inj IVP PRN (13:05)
[2018-10-11] MEDS ORDERED: Metoclopramide 10mg/2ml Inj IVP PRN (13:05)
--- NOTE | 2018-10-11 15:48 | Nephrology Progress Note ---
Assessment/Plan Problem List: (1) ESRD (end stage renal disease) on dialysis (2) Acute pancreatitis (3) Anemia due to chronic kidney disease (4) Pleural effusion on right Assessment ESRD Tue Marilee Sat - has left arm fistula HTN Anemia Pancreatitis Plan Renal diet HD in am PO Protonix DC IV Fluids IV Reglan PRN per consultants Subjective ROS Limited/Unobtainable: No Constitutional: Reports: malaise Objective Objective Last 24 Hour Vital Signs Date Time Temp Pulse Resp B/P (MAP) Pulse Ox O2 Delivery O2 Flow Rate FiO2 10/11/18 15:30 21 10/11/18 15:27 74 20 95 Room Air 21 10/11/18 12:03 Room Air Room Air 10/11/18 12:00 97.3 74 20 135/55 (81) 97 10/11/18 11:47 78 10/11/18 11:10 79 18 100 Room Air 21 10/11/18 11:02 21 10/11/18 11:00 75 18 98 Room Air 10/11/18 08:30 Room Air 10/11/18 08:11 59 20 100 Room Air 21 10/11/18 08:06 21 10/11/18 08:01 73 16 95 Room Air 10/11/18 08:00 97.7 73 18 150/69 (96) 98 10/11/18 07:27 73 10/11/18 04:00 73 10/11/18 04:00 97.9 75 20 137/63 (87) 99 10/11/18 04:00 Room Air 10/11/18 03:11 75 18 100 Room Air 10/11/18 03:01 71 18 98 Room Air 10/11/18 03:01 21 10/11/18 00:00 75 10/11/18 00:00 98.0 72 20 123/52 (75) 99 10/11/18 00:00 Room Air 10/10/18 23:21 76 18 100 Room Air 10/10/18 23:11 75 18 97 Room Air 21 10/10/18 23:11 21 10/10/18 20:00 Room Air 10/10/18 20:00 80 10/10/18 20:00 98.2 80 20 134/56 (82) 96 10/10/18 19:21 81 18 100 Room Air 21 10/10/18 19:11 86 16 98 Room Air 21 10/10/18 19:11 21 10/10/18 16:00 98.6 76 23 148/71 (96) 99 10/10/18 16:00 Room Air 10/10/18 16:00 74 Intake and Output 10/10/18 10/11/18 19:00 07:00 Intake Total 2705 ml 415 ml Output Total 2000 ml 0 ml Balance 705 ml 415 ml Intake Oral 450 ml IV Total 2255 ml 415 ml Output Urine Total 0 ml Hemodialysis UF 2000 ml # Voids 1 Laboratory Tests 10/11/18 04:10: White Blood Count 5.7, Red Blood Count 3.06L, Hemoglobin 9.4L, Hematocrit 27.7L , Mean Corpuscular Volume 91, Mean Corpuscular Hemoglobin 30.6, Mean Corpuscular Hemoglobin Concent 33.8, Red Cell Distribution Width 13.2, Platelet Count 269, Mean Platelet Volume 5.6L, Neutrophils (%) (Auto) 60.9, Lymphocytes ( %) (Auto) 23.3, Monocytes (%) (Auto) 10.3H, Eosinophils (%) (Auto) 4.2H, Basophils (%) (Auto) 1.3, Random Vancomycin Level 13.7 10/11/18 05:00: Sodium Level 136, Potassium Level 4.1, Chloride Level 98, Carbon Dioxide Level 28, Anion Gap 10, Blood Urea Nitrogen 47H, Creatinine 6.0H, Estimat Glomerular Filtration Rate 9.7, Glucose Level 80, Calcium Level 8.5, Total Bilirubin 0.6, Aspartate Amino Transf (AST/SGOT) 19, Alanine Aminotransferase (ALT/SGPT) 16, Alkaline Phosphatase 89, Total Protein 8.0, Albumin 2.9L, Globulin 5.1, Albumin/ Globulin Ratio 0.6L 10/11/18 13:40: Stool Occult Blood [Pending] Height (Feet): 5 Height (Inches): 3.00 Weight (Pounds): 133 General Appearance: no apparent distress Respiratory/Chest: decreased breath sounds Abdomen: distended Matthieu Gustafson MD Oct 11, 2018 15:48
[2018-10-11 16:00] VITALS: BP 154/74
--- NOTE | 2018-10-11 17:57 | Infectious Diseases Prog Note ---
Assessment/Plan Problems: (1) Aspiration pneumonia of right upper lobe Assessment & Plan: continue zosyn and vancomycin empirically , aspiration precaution and keep HOB> 30 degree all the time (2) Pleural effusion on right Assessment & Plan: parapneumonic VS pancreatitis related VS volume overload. S/ P thoracentesis and fluids to be sent for cytology, cell count with DIFF, culture/fungal, PH, amylase, LDH (3) Acute pancreatitis Assessment & Plan: continue supportive care , monitor lipase level (4) Nausea and vomiting in adult patient Assessment & Plan: due to the above, continue supportive care Subjective Constitutional: Reports: no symptoms HEENT: Reports: no symptoms Respiratory: Reports: no symptoms Breasts: Reports: no symptoms Cardiovascular: Reports: no symptoms Gastrointestinal/Abdominal: Reports: no symptoms Genitourinary: Reports: no symptoms Neurologic: Reports: no symptoms Psychiatric: Reports: no symptoms Skin: Reports: no symptoms Endocrine: Reports: no symptoms Hematologic: Reports: no symptoms Musculoskeletal: Reports: no symptoms Allergies: Coded Allergies: No Known Allergies (Unverified , 10/09/18) Subjective had right thoracentesis with removal of 2000 cc of clear fluids from the right pleural space Objective Vital Signs Last 24 Hour Vital Signs Date Time Temp Pulse Resp B/P (MAP) Pulse Ox O2 Delivery O2 Flow Rate FiO2 10/11/18 16:00 78.0 18 154/74 (100) 97 10/11/18 15:37 75 20 100 Room Air 21 10/11/18 15:30 21 10/11/18 15:27 74 20 95 Room Air 21 10/11/18 12:03 Room Air Room Air 10/11/18 12:00 97.3 74 20 135/55 (81) 97 10/11/18 11:47 78 10/11/18 11:10 79 18 100 Room Air 21 10/11/18 11:02 21 10/11/18 11:00 75 18 98 Room Air 21 10/11/18 08:30 Room Air 10/11/18 08:11 59 20 100 Room Air 21 10/11/18 08:06 21 10/11/18 08:01 73 16 95 Room Air 21 10/11/18 08:00 97.7 73 18 150/69 (96) 98 10/11/18 07:27 73 10/11/18 04:00 73 10/11/18 04:00 97.9 75 20 137/63 (87) 99 10/11/18 04:00 Room Air 10/11/18 03:11 75 18 100 Room Air 21 10/11/18 03:01 71 18 98 Room Air 21 10/11/18 03:01 21 10/11/18 00:00 75 10/11/18 00:00 98.0 72 20 123/52 (75) 99 10/11/18 00:00 Room Air 10/10/18 23:21 76 18 100 Room Air 21 10/10/18 23:11 75 18 97 Room Air 21 10/10/18 23:11 21 10/10/18 20:00 Room Air 10/10/18 20:00 80 10/10/18 20:00 98.2 80 20 134/56 (82) 96 10/10/18 19:21 81 18 100 Room Air 21 10/10/18 19:11 86 16 98 Room Air 21 10/10/18 19:11 21 Height (Feet): 5 Height (Inches): 3.00 Weight (Pounds): 133 General Appearance: WD/WN, no acute distress HEENT: normocephalic, atraumatic, anicteric, mucous membranes moist, PERRL, EOMI, pharynx normal, supple, no JVD Respiratory/Chest: chest wall non-tender, no respiratory distress, no accessory muscle use, decreased breath sounds, crackles/rales Cardiovascular: normal peripheral pulses, normal rate, regular rhythm, no gallop/murmur, no JVD Abdomen: normal bowel sounds, soft, non tender, no organomegaly, non distended , no mass, no scars Genitourinary: normal external genitalia Extremities: no cyanosis, no clubbing Skin: no rash, no lesions, no ulcers Neurologic/Psychiatric: adoption coordinator II-XII grossly normal, no motor/sensory deficits, alert, oriented x 3, responsive Lymphatic: no neck adenopathy, no groin adenopathy Musculoskeletal: normal muscle bulk, no effusion Microbiology Date/Time Source Procedure Growth Status 10/10/18 04:15 Blood Blood Culture - Preliminary NO GROWTH AFTER 24 HOURS Resulted 10/10/18 04:10 Blood Blood Culture - Preliminary NO GROWTH AFTER 24 HOURS Resulted 10/09/18 08:12 Blood Blood Culture - Preliminary NO GROWTH AFTER 24 HOURS Resulted 10/09/18 08:02 Blood Blood Culture - Preliminary NO GROWTH AFTER 24 HOURS Resulted 10/10/18 01:00 Pleural Fluid Gram Stain - Final Resulted 10/10/18 01:00 Pleural Fluid Body Fluid Culture - Preliminary NO GROWTH Resulted 10/09/18 07:20 Nasal Nares MRSA Culture - Final NO METHICILLIN RESISTANT STAPH AUREUS... Complete 10/10/18 02:30 Urine,Clean Catch Urine Culture - Preliminary NO GROWTH AFTER 24 HOURS Resulted 10/09/18 07:20 Rectum - Final NO CARBAPENEM-RESISTANT ENTEROBACTERI... Complete 10/09/18 07:20 Rectum VRE Culture - Final NO VANCOMYCIN RESISTANT ENTEROCOCCUS ... Complete Laboratory Tests Test 10/11/18 04:10 10/11/18 05:00 10/11/18 13:40 White Blood Count 5.7 K/UL (4.8-10.8) Red Blood Count 3.06 M/UL (4.70-6.10) L Hemoglobin 9.4 G/DL (14.2-18.0) L Hematocrit 27.7 % (42.0-52.0) L Mean Corpuscular Volume 91 FL (80-99) Mean Corpuscular Hemoglobin 30.6 PG (27.0-31.0) Mean Corpuscular Hemoglobin Concent 33.8 G/DL (32.0-36.0) Red Cell Distribution Width 13.2 % (11.6-14.8) Platelet Count 269 K/UL (150-450) Mean Platelet Volume 5.6 FL (6.5-10.1) L Neutrophils (%) (Auto) 60.9 % (45.0-75.0) Lymphocytes (%) (Auto) 23.3 % (20.0-45.0) Monocytes (%) (Auto) 10.3 % (1.0-10.0) H Eosinophils (%) (Auto) 4.2 % (0.0-3.0) H Basophils (%) (Auto) 1.3 % (0.0-2.0) Random Vancomycin Level 13.7 ug/mL Sodium Level 136 MMOL/L (136-145) Potassium Level 4.1 MMOL/L (3.5-5.1) Chloride Level 98 MMOL/L (98-107) Carbon Dioxide Level 28 MMOL/L (21-32) Anion Gap 10 mmol/L (5-15) Blood Urea Nitrogen 47 mg/dL (7-18) H Creatinine 6.0 MG/DL (0.55-1.30) H Estimat Glomerular Filtration Rate 9.7 mL/min (>60) Glucose Level 80 MG/DL (74-106) Calcium Level 8.5 MG/DL (8.5-10.1) Total Bilirubin 0.6 MG/DL (0.2-1.0) Aspartate Amino Transf (AST/SGOT) 19 U/L (15-37) Alanine Aminotransferase (ALT/SGPT) 16 U/L (12-78) Alkaline Phosphatase 89 U/L (46-116) Total Protein 8.0 G/DL (6.4-8.2) Albumin 2.9 G/DL (3.4-5.0) L Globulin 5.1 g/dL Albumin/Globulin Ratio 0.6 (1.0-2.7) L Stool Occult Blood Pending Current Medications Medications (Trade) Dose Ordered Sig/Anish Route PRN Reason Start Time Stop Time Status Last Admin Dose Admin Albuterol/ Ipratropium (Albuterol/ Ipratropium) 3 ml Q4HRT HHN 10/11/18 15:00 10/14/18 10:59 10/11/18 15:27 Epoetin Isidro (Epoetin Isidro(ESRD on dialysis)) 10,000 unit TUE-TUE-TUE SUBQ 10/11/18 21:00 11/10/18 20:59 Heparin Sodium (Porcine) (Heparin 5000 units/ml) 5,000 units EVERY 12 HOURS SUBQ 10/11/18 21:00 11/10/18 08:59 Hydralazine HCl (Apresoline) 10 mg Q4H PRN IV bp over 160 syst 10/11/18 13:04 11/08/18 13:03 Hydromorphone HCl (Dilaudid) 0.5 mg Q4H PRN IVP For Pain 10/11/18 13:05 10/16/18 13:04 Iron Sucrose 100 mg/Sodium Chloride 55 ml @ 200 mls/hr BEDTIME IV 10/11/18 21:00 10/12/18 21:17 Metoclopramide HCl (Reglan) 10 mg Q6H PRN IVP Nausea & Vomiting 4/10/19 13:05 11/08/18 13:04 Pantoprazole (Protonix) 40 mg EVERY 12 HOURS ORAL 10/11/18 21:00 11/10/18 20:59 Piperacillin Sod/ Tazobactam Sod 2.25 gm/Dextrose 55 ml @ 110 mls/hr Q8HR IVPB 10/11/18 14:00 10/14/18 08:59 10/11/18 15:25 Vancomycin HCl (Vanco rx to dose) 1 ea DAILY PRN MISC Per rx protocol 10/11/18 13:05 11/10/18 13:04 Jeff Mendez M.D. Oct 11, 2018 17:57
[2018-10-11 20:00] VITALS: BP 147/66
--- NOTE | 2018-10-11 20:39 | Pulmonology Progress Note ---
Assessment/Plan Problems: (1) Pleural effusion on right (2) Acute pancreatitis (3) Nausea and vomiting in adult patient (4) Aspiration pneumonia of right upper lobe (5) Ascites (6) Anemia (7) ESRD (end stage renal disease) on dialysis (8) Anemia due to chronic kidney disease Assessment/Plan ASSESSMENT: The patient is a 58-year-old male with end-stage renal disease, on dialysis Tuesday, , Tuesday, presenting with abdominal pain and nausea secondary to pancreatitis, noted to have a large right-sided pleural effusion with subsequent compressive atelectasis and possible pneumonia. PROBLEM LIST: 1. Large right-sided effusion. 2. Compressive atelectasis. 3. Ground-glass opacity of the right lung, atelectasis versus infiltrate. 4. Left lower lobe pulmonary nodule. 5. Acute pancreatitis. 6. End-stage renal disease, on dialysis. TREATMENT PLAN: 1. Optimize pulmonary hygiene/mobilize as tolerated. 2. Monitor effusion 3. Continue antibiotics (vancomycin and Zosyn) per ID. 4. F/U pleural fluid studies 5. Follow up GI recs, pain control/supportive care 6. Monitor volumes and renal function. HD per renal with UF as able 7. DVT prophylaxis: Hep SQ 8. Continue [id number] and p.r.n. bronchodilators. Subjective Allergies: Coded Allergies: No Known Allergies (Unverified , 10/09/18) Subjective AFVSS on RA Pleural fluid studies stil pending S/P HD No F/C/CP/SOB/N/V/D/C/abd pain/urinary co Objective Last 24 Hour Vital Signs Date Time Temp Pulse Resp B/P (MAP) Pulse Ox O2 Delivery O2 Flow Rate FiO2 10/11/18 19:42 79 18 99 Room Air 21 10/11/18 19:32 78 18 98 Room Air 21 10/11/18 16:00 78.0 18 154/74 (100) 97 10/11/18 16:00 Room Air Room Air 10/11/18 15:37 75 20 100 Room Air 21 10/11/18 15:30 21 10/11/18 15:27 74 20 95 Room Air 21 10/11/18 12:03 Room Air Room Air 10/11/18 12:00 97.3 74 20 135/55 (81) 97 10/11/18 11:47 78 10/11/18 11:10 79 18 100 Room Air 21 10/11/18 11:02 21 10/11/18 11:00 75 18 98 Room Air 21 10/11/18 08:30 Room Air 10/11/18 08:11 59 20 100 Room Air 21 10/11/18 08:06 21 10/11/18 08:01 73 16 95 Room Air 21 10/11/18 08:00 97.7 73 18 150/69 (96) 98 10/11/18 07:27 73 10/11/18 04:00 73 10/11/18 04:00 97.9 75 20 137/63 (87) 99 10/11/18 04:00 Room Air 10/11/18 03:11 75 18 100 Room Air 21 10/11/18 03:01 71 18 98 Room Air 21 10/11/18 03:01 21 10/11/18 00:00 75 10/11/18 00:00 98.0 72 20 123/52 (75) 99 10/11/18 00:00 Room Air 10/10/18 23:21 76 18 100 Room Air 21 10/10/18 23:11 75 18 97 Room Air 21 10/10/18 23:11 21 Intake and Output 10/10/18 10/11/18 19:00 07:00 Intake Total 2705 ml 415 ml Output Total 2000 ml 0 ml Balance 705 ml 415 ml Intake Oral 450 ml IV Total 2255 ml 415 ml Output Urine Total 0 ml Hemodialysis UF 2000 ml # Voids 1 General Appearance: no acute distress, cachetic HEENT: normocephalic, atraumatic, anicteric, mucous membranes moist Respiratory/Chest: rhonchi Cardiovascular: normal peripheral pulses, normal rate, regular rhythm Abdomen: normal bowel sounds, soft, non tender, no organomegaly, non distended , no mass Extremities: no cyanosis, no clubbing, no edema Microbiology Date/Time Source Procedure Growth Status 10/10/18 04:15 Blood Blood Culture - Preliminary NO GROWTH AFTER 24 HOURS Resulted 10/10/18 04:10 Blood Blood Culture - Preliminary NO GROWTH AFTER 24 HOURS Resulted 10/09/18 08:12 Blood Blood Culture - Preliminary NO GROWTH AFTER 24 HOURS Resulted 10/09/18 08:02 Blood Blood Culture - Preliminary NO GROWTH AFTER 24 HOURS Resulted 10/10/18 01:00 Pleural Fluid Gram Stain - Final Resulted 10/10/18 01:00 Pleural Fluid Body Fluid Culture - Preliminary NO GROWTH Resulted 10/09/18 07:20 Nasal Nares MRSA Culture - Final NO METHICILLIN RESISTANT STAPH AUREUS... Complete 10/10/18 02:30 Urine,Clean Catch Urine Culture - Preliminary NO GROWTH AFTER 24 HOURS Resulted 10/09/18 07:20 Rectum - Final NO CARBAPENEM-RESISTANT ENTEROBACTERI... Complete 10/09/18 07:20 Rectum VRE Culture - Final NO VANCOMYCIN RESISTANT ENTEROCOCCUS ... Complete Laboratory Tests 10/11/18 04:10: White Blood Count 5.7, Red Blood Count 3.06L, Hemoglobin 9.4L, Hematocrit 27.7L , Mean Corpuscular Volume 91, Mean Corpuscular Hemoglobin 30.6, Mean Corpuscular Hemoglobin Concent 33.8, Red Cell Distribution Width 13.2, Platelet Count 269, Mean Platelet Volume 5.6L, Neutrophils (%) (Auto) 60.9, Lymphocytes ( %) (Auto) 23.3, Monocytes (%) (Auto) 10.3H, Eosinophils (%) (Auto) 4.2H, Basophils (%) (Auto) 1.3, Random Vancomycin Level 13.7 10/11/18 05:00: Sodium Level 136, Potassium Level 4.1, Chloride Level 98, Carbon Dioxide Level 28, Anion Gap 10, Blood Urea Nitrogen 47H, Creatinine 6.0H, Estimat Glomerular Filtration Rate 9.7, Glucose Level 80, Calcium Level 8.5, Total Bilirubin 0.6, Aspartate Amino Transf (AST/SGOT) 19, Alanine Aminotransferase (ALT/SGPT) 16, Alkaline Phosphatase 89, Total Protein 8.0, Albumin 2.9L, Globulin 5.1, Albumin/ Globulin Ratio 0.6L 10/11/18 13:40: Stool Occult Blood [Pending] Current Medications Medications (Trade) Dose Ordered Sig/Anish Route PRN Reason Start Time Stop Time Status Last Admin Dose Admin Albuterol/ Ipratropium (Albuterol/ Ipratropium) 3 ml Q4HRT HHN 10/11/18 15:00 10/14/18 10:59 10/11/18 19:32 Epoetin Isidro (Epoetin Isidro(ESRD on dialysis)) 10,000 unit MON-WED-TUE SUBQ 10/11/18 21:00 11/10/18 20:59 Heparin Sodium (Porcine) (Heparin 5000 units/ml) 5,000 units EVERY 12 HOURS SUBQ 10/11/18 21:00 11/10/18 08:59 Hydralazine HCl (Apresoline) 10 mg Q4H PRN IV bp over 160 syst 10/11/18 13:04 11/08/18 13:03 Hydromorphone HCl (Dilaudid) 0.5 mg Q4H PRN IVP For Pain 10/11/18 13:05 10/16/18 13:04 Iron Sucrose 100 mg/Sodium Chloride 55 ml @ 200 mls/hr BEDTIME IV 10/11/18 21:00 10/12/18 21:17 Metoclopramide HCl (Reglan) 10 mg Q6H PRN IVP Nausea & Vomiting 10/11/18 13:05 11/08/18 13:04 Pantoprazole (Protonix) 40 mg EVERY 12 HOURS ORAL 10/11/18 21:00 11/10/18 20:59 Piperacillin Sod/ Tazobactam Sod 2.25 gm/Dextrose 55 ml @ 110 mls/hr Q8HR IVPB 10/11/18 14:00 10/14/18 08:59 10/11/18 15:25 Vancomycin HCl (Vanco rx to dose) 1 ea DAILY PRN MISC Per rx protocol 10/11/18 13:05 11/10/18 13:04 Gagan Knight MD Oct 11, 2018 20:39
[2018-10-11] MEDS ORDERED: Pantoprazole Inj IVP SCH (21:00)
[2018-10-11] MEDS ORDERED: Epogen (for ESRD on dialysis) SUBQ SCH (21:00)
[2018-10-11] MEDS: Epoetin Alfa(ESRD on dialysis)10,000 unit/ml vial SUBQ SCH (22:01)
[2018-10-11] MEDS: Heparin 5000 units/ml inj SUBQ SCH (22:06)
[2018-10-12] VITALS: BP 145/67
[2018-10-12 04:00] VITALS: BP 147/76
[2018-10-12] MEDS: Albuterol/Ipratropium 3ml neb HHN SCH ×6 (04:05→23:14)
[2018-10-12] MEDS: Piperacillin/Tazobactam 2.25 GM in D5W 55 ML IVPB SCH ×3 (06:00→22:00)
[2018-10-12 07:02] LABS: BASOPHILS % (AUTO) 0.9 % (0.0-2.0); EOSINOPHILS % (AUTO) 3.3 % (0.0-3.0); HEMATOCRIT 25.8 % (42.0-52.0); HEMOGLOBIN 8.8 G/DL (14.2-18.0); LYMPHOCYTES % (AUTO) 16.9 % (20.0-45.0); MEAN CORPUSCULAR VOLUME 91 FL (80-99); MONOCYTES % (AUTO) 10.8 % (1.0-10.0); NEUTROPHILS % (AUTO) 68.1 % (45.0-75.0); PLATELET COUNT 233 K/UL (150-450); RED BLOOD COUNT 2.83 M/UL (4.70-6.10); RED CELL DISTRIBUTION WIDTH 13.5 % (11.6-14.8); WHITE BLOOD COUNT 6.1 K/UL (4.8-10.8)
[2018-10-12 07:27] LABS: ALANINE AMINOTRANSFERASE 14 U/L (12-78); ALBUMIN 2.8 G/DL (3.4-5.0); ALBUMIN/GLOBULIN RATIO 0.6 (1.0-2.7); ALKALINE PHOSPHATASE 80 U/L (46-116); ANION GAP 15 mmol/L (5-15); ASPARTATE AMINO TRANSFERASE 16 U/L (15-37); BILIRUBIN,TOTAL 0.5 MG/DL (0.2-1.0); BLOOD UREA NITROGEN 59 mg/dL (7-18); CALCIUM 8.3 MG/DL (8.5-10.1); CARBON DIOXIDE 24 MMOL/L (21-32); CHLORIDE 98 MMOL/L (98-107); CREATININE 7.9 MG/DL (0.55-1.30); POTASSIUM 4.6 MMOL/L (3.5-5.1); SODIUM 137 MMOL/L (136-145)
[2018-10-12 08:00] VITALS: BP 140/78
[2018-10-12] MEDS: Heparin 5000 units/ml inj SUBQ SCH ×2 (10:11→20:24)
--- NOTE | 2018-10-12 10:32 | GI Progress Note ---
Assessment/Plan Problems: (1) Ascites ICD Codes: R18.8 - Other ascites SNOMED: 401014789 (2) Anemia ICD Codes: D64.9 - Anemia, unspecified SNOMED: 618311738 (3) Nausea and vomiting in adult patient ICD Codes: R11.2 - Nausea with vomiting, unspecified SNOMED: 97848319 (4) Aspiration pneumonia of right upper lobe ICD Codes: J69.0 - Pneumonitis due to inhalation of food and vomit SNOMED: 870024969, 216562761 (5) Pleural effusion on right ICD Codes: J90 - Pleural effusion, not elsewhere classified SNOMED: 63568182 (6) Acute pancreatitis ICD Codes: K85.90 - Acute pancreatitis without necrosis or infection, unspecified SNOMED: 791968566 Status: stable Status Narrative Discussed with Dr. Jack Assessment/Plan Lipase within normal limits Abdominal ultrasound reviewed, noted with small ascites Status post thoracentesis Hepatitis panel negative Anemia workup reviewed renal diet Monitor H&H, PRN transfusions PPI Zofran as needed pain mgmt Follow labs Pulmonary care The patient was seen and examined at bedside and all new and available data was reviewed in the patients chart. I agree with the above findings, impression and plan. (Patient seen earlier today. Signature stamp does not reflect patient encounter time.). - Slava Jack MD Subjective Subjective Complaint of dizziness Denies any abdominal pain Objective Last 24 Hour Vital Signs Date Time Temp Pulse Resp B/P (MAP) Pulse Ox O2 Delivery O2 Flow Rate FiO2 10/12/18 08:00 Room Air Room Air 10/12/18 08:00 98.1 78 20 140/78 (98) 99 10/12/18 07:34 77 17 100 Room Air 21 10/12/18 07:24 76 16 100 Room Air 21 10/12/18 04:10 78 18 99 Room Air 21 10/12/18 04:05 73 18 98 Room Air 21 10/12/18 04:00 97.9 73 20 147/76 (99) 100 10/12/18 04:00 Room Air Room Air 10/12/18 00:31 Room Air Room Air 10/12/18 00:00 98.3 80 18 145/67 (93) 100 10/11/18 23:18 78 18 99 Room Air 21 10/11/18 23:08 78 18 98 Room Air 21 10/11/18 20:00 Room Air Room Air 10/11/18 20:00 99.5 84 16 147/66 (93) 97 10/11/18 19:42 79 18 99 Room Air 21 10/11/18 19:32 78 18 98 Room Air 21 10/11/18 16:00 78.0 18 154/74 (100) 97 10/11/18 16:00 Room Air Room Air 10/11/18 15:37 75 20 100 Room Air 21 10/11/18 15:30 21 10/11/18 15:27 74 20 95 Room Air 21 10/11/18 12:03 Room Air Room Air 10/11/18 12:00 97.3 74 20 135/55 (81) 97 10/11/18 11:47 78 10/11/18 11:10 79 18 100 Room Air 21 10/11/18 11:02 21 10/11/18 11:00 75 18 98 Room Air 21 Intake and Output 10/11/18 10/12/18 19:00 07:00 Intake Total 1103.333 ml Output Total 0 ml 100 ml Balance 1103.333 ml -100 ml Intake Oral 820 ml IV Total 283.333 ml Output Urine Total 0 ml 100 ml # Voids 2 # Bowel Movements 1 1 Laboratory Tests Test 10/11/18 13:40 10/12/18 06:25 Stool Occult Blood Pending White Blood Count 6.1 K/UL (4.8-10.8) Red Blood Count 2.83 M/UL (4.70-6.10) L Hemoglobin 8.8 G/DL (14.2-18.0) L Hematocrit 25.8 % (42.0-52.0) L Mean Corpuscular Volume 91 FL (80-99) Mean Corpuscular Hemoglobin 30.9 PG (27.0-31.0) Mean Corpuscular Hemoglobin Concent 33.9 G/DL (32.0-36.0) Red Cell Distribution Width 13.5 % (11.6-14.8) Platelet Count 233 K/UL (150-450) Mean Platelet Volume 5.6 FL (6.5-10.1) L Neutrophils (%) (Auto) 68.1 % (45.0-75.0) Lymphocytes (%) (Auto) 16.9 % (20.0-45.0) L Monocytes (%) (Auto) 10.8 % (1.0-10.0) H Eosinophils (%) (Auto) 3.3 % (0.0-3.0) H Basophils (%) (Auto) 0.9 % (0.0-2.0) Sodium Level 137 MMOL/L (136-145) Potassium Level 4.6 MMOL/L (3.5-5.1) Chloride Level 98 MMOL/L (98-107) Carbon Dioxide Level 24 MMOL/L (21-32) Anion Gap 15 mmol/L (5-15) Blood Urea Nitrogen 59 mg/dL (7-18) H Creatinine 7.9 MG/DL (0.55-1.30) H Estimat Glomerular Filtration Rate 7.0 mL/min (>60) Glucose Level 91 MG/DL (74-106) Calcium Level 8.3 MG/DL (8.5-10.1) L Total Bilirubin 0.5 MG/DL (0.2-1.0) Aspartate Amino Transf (AST/SGOT) 16 U/L (15-37) Alanine Aminotransferase (ALT/SGPT) 14 U/L (12-78) Alkaline Phosphatase 80 U/L (46-116) Total Protein 7.7 G/DL (6.4-8.2) Albumin 2.8 G/DL (3.4-5.0) L Globulin 4.9 g/dL Albumin/Globulin Ratio 0.6 (1.0-2.7) L Height (Feet): 5 Height (Inches): 3.00 Weight (Pounds): 139 General Appearance: WD/WN, no apparent distress, alert Cardiovascular: normal rate Respiratory/Chest: normal breath sounds, no respiratory distress Abdominal Exam: normal bowel sounds, non tender, soft Extremities: normal range of motion, non-tender Kevin Soriano NP Oct 12, 2018 10:32
[2018-10-12] MEDS ORDERED: Meclizine 25mg tab ORAL PRN (10:45)
[2018-10-12 12:00] VITALS: BP 135/80
[2018-10-12] MEDS ORDERED: Vancomycin 750 MG in NS 275 ML IVPB ONE (12:00)
--- NOTE | 2018-10-12 14:02 | Pulmonology Progress Note ---
Assessment/Plan Problems: (1) Pleural effusion on right (2) Acute pancreatitis (3) Nausea and vomiting in adult patient (4) Aspiration pneumonia of right upper lobe (5) Ascites (6) Anemia (7) ESRD (end stage renal disease) on dialysis (8) Anemia due to chronic kidney disease Assessment/Plan ASSESSMENT: The patient is a 58-year-old male with end-stage renal disease, on dialysis Tuesday, , Tuesday, presenting with abdominal pain and nausea secondary to pancreatitis, noted to have a large right-sided pleural effusion with subsequent compressive atelectasis and possible pneumonia. PROBLEM LIST: 1. Large right-sided effusion. 2. Compressive atelectasis. 3. Ground-glass opacity of the right lung, atelectasis versus infiltrate. 4. Left lower lobe pulmonary nodule. 5. Acute pancreatitis. 6. End-stage renal disease, on dialysis. TREATMENT PLAN: 1. Optimize pulmonary hygiene/mobilize as tolerated. 2. Monitor effusion 3. Continue antibiotics (vancomycin and Zosyn) per ID. 4. F/U pleural fluid studies 5. Follow up GI recs, pain control/supportive care 6. Monitor volumes and renal function. HD per renal with UF as able 7. DVT prophylaxis: Hep SQ 8. Continue [id number] and p.r.n. bronchodilators. 9. CXR Subjective Allergies: Coded Allergies: No Known Allergies (Unverified , 10/09/18) Subjective AFVSS on RA Seen during HD No F/C/CP/SOB/N/V/D/C/abd pain/urinary co Objective Last 24 Hour Vital Signs Date Time Temp Pulse Resp B/P (MAP) Pulse Ox O2 Delivery O2 Flow Rate FiO2 10/12/18 11:30 81 20 100 Room Air 21 10/12/18 11:17 79 17 99 Room Air 21 10/12/18 08:00 Room Air Room Air 10/12/18 08:00 98.1 78 20 140/78 (98) 99 10/12/18 07:34 77 17 100 Room Air 21 10/12/18 07:24 76 16 100 Room Air 21 10/12/18 04:10 78 18 99 Room Air 21 10/12/18 04:05 73 18 98 Room Air 21 10/12/18 04:00 97.9 73 20 147/76 (99) 100 10/12/18 04:00 Room Air Room Air 10/12/18 00:31 Room Air Room Air 10/12/18 00:00 98.3 80 18 145/67 (93) 100 10/11/18 23:18 78 18 99 Room Air 21 10/11/18 23:08 78 18 98 Room Air 21 10/11/18 20:00 Room Air Room Air 10/11/18 20:00 99.5 84 16 147/66 (93) 97 10/11/18 19:42 79 18 99 Room Air 21 10/11/18 19:32 78 18 98 Room Air 21 10/11/18 16:00 78.0 18 154/74 (100) 97 10/11/18 16:00 Room Air Room Air 10/11/18 15:37 75 20 100 Room Air 21 10/11/18 15:30 21 10/11/18 15:27 74 20 95 Room Air 21 Intake and Output 10/11/18 10/12/18 19:00 07:00 Intake Total 1103.333 ml Output Total 0 ml 100 ml Balance 1103.333 ml -100 ml Intake Oral 820 ml IV Total 283.333 ml Output Urine Total 0 ml 100 ml # Voids 2 # Bowel Movements 1 1 General Appearance: WD/WN, no acute distress HEENT: normocephalic, atraumatic, anicteric, mucous membranes moist Respiratory/Chest: chest wall non-tender, lungs clear, normal breath sounds, no respiratory distress, no accessory muscle use Cardiovascular: normal peripheral pulses, normal rate, regular rhythm Abdomen: normal bowel sounds, soft, non tender, no organomegaly, non distended , no mass Extremities: no cyanosis, no clubbing, no edema Microbiology Date/Time Source Procedure Growth Status 10/10/18 08:35 Blood Blood Culture - Preliminary NO GROWTH AFTER 24 HOURS Resulted 10/10/18 08:20 Blood Blood Culture - Preliminary NO GROWTH AFTER 24 HOURS Resulted 10/10/18 04:15 Blood Blood Culture - Preliminary NO GROWTH AFTER 48 HOURS Resulted 10/10/18 04:10 Blood Blood Culture - Preliminary NO GROWTH AFTER 48 HOURS Resulted 10/10/18 01:00 Pleural Fluid Gram Stain - Final Resulted 10/10/18 01:00 Pleural Fluid Body Fluid Culture - Preliminary NO GROWTH AFTER 24 HOURS Resulted 10/10/18 02:30 Urine,Clean Catch Urine Culture - Preliminary Mixed Gram Positive Organism Resulted Laboratory Tests 10/12/18 06:25: White Blood Count 6.1, Red Blood Count 2.83L, Hemoglobin 8.8L, Hematocrit 25.8L , Mean Corpuscular Volume 91, Mean Corpuscular Hemoglobin 30.9, Mean Corpuscular Hemoglobin Concent 33.9, Red Cell Distribution Width 13.5, Platelet Count 233, Mean Platelet Volume 5.6L, Neutrophils (%) (Auto) 68.1, Lymphocytes ( %) (Auto) 16.9L, Monocytes (%) (Auto) 10.8H, Eosinophils (%) (Auto) 3.3H, Basophils (%) (Auto) 0.9, Sodium Level 137, Potassium Level 4.6, Chloride Level 98, Carbon Dioxide Level 24, Anion Gap 15, Blood Urea Nitrogen 59H, Creatinine 7.9H, Estimat Glomerular Filtration Rate 7.0, Glucose Level 91, Calcium Level 8.3L, Total Bilirubin 0.5, Aspartate Amino Transf (AST/SGOT) 16, Alanine Aminotransferase (ALT/SGPT) 14, Alkaline Phosphatase 80, Total Protein 7.7, Albumin 2.8L, Globulin 4.9, Albumin/Globulin Ratio 0.6L Current Medications Medications (Trade) Dose Ordered Sig/Anish Route PRN Reason Start Time Stop Time Status Last Admin Dose Admin Albuterol/ Ipratropium (Albuterol/ Ipratropium) 3 ml Q4HRT HHN 10/11/18 15:00 10/14/18 10:59 10/12/18 11:17 Epoetin Isidro (Epoetin Isidro(ESRD on dialysis)) 10,000 unit TUE-TUE-TUE SUBQ 10/11/18 21:00 11/10/18 20:59 10/11/18 22:01 Heparin Sodium (Porcine) (Heparin 5000 units/ml) 5,000 units EVERY 12 HOURS SUBQ 10/11/18 21:00 11/10/18 08:59 10/12/18 10:11 Hydralazine HCl (Apresoline) 10 mg Q4H PRN IV bp over 160 syst 10/11/18 13:04 11/08/18 13:03 Hydromorphone HCl (Dilaudid) 0.5 mg Q4H PRN IVP For Pain 10/11/18 13:05 10/16/18 13:04 Iron Sucrose 100 mg/Sodium Chloride 55 ml @ 200 mls/hr BEDTIME IV 10/11/18 21:00 10/12/18 21:17 10/11/18 21:00 Meclizine HCl (Antivert) 25 mg Q6H PRN ORAL for dizziness 10/12/18 10:45 11/11/18 10:44 Metoclopramide HCl (Reglan) 10 mg Q6H PRN IVP Nausea & Vomiting 10/11/18 13:05 11/08/18 13:04 Pantoprazole (Protonix) 40 mg EVERY 12 HOURS ORAL 10/11/18 21:00 11/10/18 20:59 10/12/18 10:09 Piperacillin Sod/ Tazobactam Sod 2.25 gm/Dextrose 55 ml @ 110 mls/hr Q8HR IVPB 10/11/18 14:00 10/14/18 08:59 10/12/18 06:00 Vancomycin HCl (Vanco rx to dose) 1 ea DAILY PRN MISC Per rx protocol 10/11/18 13:05 11/10/18 13:04 Gagan Knight MD Oct 12, 2018 14:02
--- NOTE | 2018-10-12 14:12 | General Progress Note ---
Assessment/Plan Assessment/Plan S: I am feeling better O:Denies sob. denies chest pain PHYSICAL EXAMINATION:HEAD AND NECK: Atraumatic and normocephalic. CHEST: Lack of breathing in the right side and bronchial breathing sounds in the other side.NEUROLOGIC: The patient is awake, alert, and oriented x3. MUSCULOSKELETAL: Positive for the AV fistula in the left upper arm. No tenderness. No redness.NEUROLOGIC: The patient is delirious. Meds: reviewed and reconciled in the chart ASSESSMENT AND PLAN: 1. Sepsis. 2. Acute encephalopathy. 3. Hypoxemic respiratory failure. 4. Right-sided pleural effusion post drainage 5. End-stage renal disease, on hemodialysis. 6. Anemia. 7. GI and DVT prophylaxis. PLAN OF CARE: Post Thoracenthesis current pulmonary mgt c/w HD Subjective Allergies: Coded Allergies: No Known Allergies (Unverified , 10/09/18) Objective Last 24 Hour Vital Signs Date Time Temp Pulse Resp B/P (MAP) Pulse Ox O2 Delivery O2 Flow Rate FiO2 10/12/18 11:30 81 20 100 Room Air 10/12/18 11:17 79 17 99 Room Air 10/12/18 08:00 Room Air Room Air 10/12/18 08:00 98.1 78 20 140/78 (98) 99 10/12/18 07:34 77 17 100 Room Air 10/12/18 07:24 76 16 100 Room Air 10/12/18 04:10 78 18 99 Room Air 10/12/18 04:05 73 18 98 Room Air 10/12/18 04:00 97.9 73 20 147/76 (99) 100 10/12/18 04:00 Room Air Room Air 10/12/18 00:31 Room Air Room Air 10/12/18 00:00 98.3 80 18 145/67 (93) 100 10/11/18 23:18 78 18 99 Room Air 21 10/11/18 23:08 78 18 98 Room Air 21 10/11/18 20:00 Room Air Room Air 10/11/18 20:00 99.5 84 16 147/66 (93) 97 10/11/18 19:42 79 18 99 Room Air 21 10/11/18 19:32 78 18 98 Room Air 21 10/11/18 16:00 78.0 18 154/74 (100) 97 4/10/19 16:00 Room Air Room Air 10/11/18 15:37 75 20 100 Room Air 21 10/11/18 15:30 21 10/11/18 15:27 74 20 95 Room Air 21 Intake and Output 10/11/18 10/12/18 19:00 07:00 Intake Total 1103.333 ml Output Total 0 ml 100 ml Balance 1103.333 ml -100 ml Intake Oral 820 ml IV Total 283.333 ml Output Urine Total 0 ml 100 ml # Voids 2 # Bowel Movements 1 1 Laboratory Tests 10/12/18 06:25: White Blood Count 6.1, Red Blood Count 2.83L, Hemoglobin 8.8L, Hematocrit 25.8L , Mean Corpuscular Volume 91, Mean Corpuscular Hemoglobin 30.9, Mean Corpuscular Hemoglobin Concent 33.9, Red Cell Distribution Width 13.5, Platelet Count 233, Mean Platelet Volume 5.6L, Neutrophils (%) (Auto) 68.1, Lymphocytes ( %) (Auto) 16.9L, Monocytes (%) (Auto) 10.8H, Eosinophils (%) (Auto) 3.3H, Basophils (%) (Auto) 0.9, Sodium Level 137, Potassium Level 4.6, Chloride Level 98, Carbon Dioxide Level 24, Anion Gap 15, Blood Urea Nitrogen 59H, Creatinine 7.9H, Estimat Glomerular Filtration Rate 7.0, Glucose Level 91, Calcium Level 8.3L, Total Bilirubin 0.5, Aspartate Amino Transf (AST/SGOT) 16, Alanine Aminotransferase (ALT/SGPT) 14, Alkaline Phosphatase 80, Total Protein 7.7, Albumin 2.8L, Globulin 4.9, Albumin/Globulin Ratio 0.6L Height (Feet): 5 Height (Inches): 3.00 Weight (Pounds): 139 Cortney Grullon MD Oct 12, 2018 14:12
[2018-10-12 16:55] VITALS: BP 165/74
--- NOTE | 2018-10-12 16:59 | Nephrology Progress Note ---
Assessment/Plan Problem List: (1) ESRD (end stage renal disease) on dialysis (2) Acute pancreatitis (3) Anemia due to chronic kidney disease (4) Pleural effusion on right Assessment ESRD Tue Marilee Sat - has left arm fistula HTN Anemia Pancreatitis Plan Renal diet HD today 10/12 PO Protonix DC IV Fluids IV Reglan PRN per consultants Subjective ROS Limited/Unobtainable: No Constitutional: Reports: malaise Objective Objective Last 24 Hour Vital Signs Date Time Temp Pulse Resp B/P (MAP) Pulse Ox O2 Delivery O2 Flow Rate FiO2 10/12/18 16:55 98.6 85 18 165/74 (104) 97 10/12/18 15:17 80 18 100 Room Air 21 10/12/18 15:07 78 20 99 Room Air 21 10/12/18 12:00 98.3 74 19 135/80 (98) 98 10/12/18 11:30 81 20 100 Room Air 21 10/12/18 11:17 79 17 99 Room Air 21 10/12/18 08:00 Room Air Room Air 10/12/18 08:00 98.1 78 20 140/78 (98) 99 10/12/18 07:34 77 17 100 Room Air 21 10/12/18 07:24 76 16 100 Room Air 21 10/12/18 04:10 78 18 99 Room Air 21 10/12/18 04:05 73 18 98 Room Air 21 10/12/18 04:00 97.9 73 20 147/76 (99) 100 10/12/18 04:00 Room Air Room Air 10/12/18 00:31 Room Air Room Air 10/12/18 00:00 98.3 80 18 145/67 (93) 100 10/11/18 23:18 78 18 99 Room Air 21 10/11/18 23:08 78 18 98 Room Air 21 10/11/18 20:00 Room Air Room Air 10/11/18 20:00 99.5 84 16 147/66 (93) 97 10/11/18 19:42 79 18 99 Room Air 21 10/11/18 19:32 78 18 98 Room Air 21 Intake and Output 10/11/18 10/12/18 19:00 07:00 Intake Total 1103.333 ml Output Total 0 ml 100 ml Balance 1103.333 ml -100 ml Intake Oral 820 ml IV Total 283.333 ml Output Urine Total 0 ml 100 ml # Voids 2 # Bowel Movements 1 1 Laboratory Tests 10/12/18 06:25: White Blood Count 6.1, Red Blood Count 2.83L, Hemoglobin 8.8L, Hematocrit 25.8L , Mean Corpuscular Volume 91, Mean Corpuscular Hemoglobin 30.9, Mean Corpuscular Hemoglobin Concent 33.9, Red Cell Distribution Width 13.5, Platelet Count 233, Mean Platelet Volume 5.6L, Neutrophils (%) (Auto) 68.1, Lymphocytes ( %) (Auto) 16.9L, Monocytes (%) (Auto) 10.8H, Eosinophils (%) (Auto) 3.3H, Basophils (%) (Auto) 0.9, Sodium Level 137, Potassium Level 4.6, Chloride Level 98, Carbon Dioxide Level 24, Anion Gap 15, Blood Urea Nitrogen 59H, Creatinine 7.9H, Estimat Glomerular Filtration Rate 7.0, Glucose Level 91, Calcium Level 8.3L, Total Bilirubin 0.5, Aspartate Amino Transf (AST/SGOT) 16, Alanine Aminotransferase (ALT/SGPT) 14, Alkaline Phosphatase 80, Total Protein 7.7, Albumin 2.8L, Globulin 4.9, Albumin/Globulin Ratio 0.6L Height (Feet): 5 Height (Inches): 3.00 Weight (Pounds): 139 General Appearance: no apparent distress Objective no change Matthieu Gustafson MD Oct 12, 2018 16:59
--- NOTE | 2018-10-12 17:20 | Diagnostic Imaging Report ---
Indication: Cough Technique: One view of the chest Comparison: 10/10/2018 Findings: Right-sided pleural effusion has increased significantly since previous study. Consolidation of the right mid and lower lung has also increased somewhat. The heart remains enlarged. The left lung and pleural space are clear Impression: Increased and now large right sided pleural effusion, over 2 days Increasing underlying right-sided parenchymal consolidation or edema
--- NOTE | 2018-10-12 17:21 | Infectious Diseases Prog Note ---
Assessment/Plan Problems: (1) Aspiration pneumonia of right upper lobe Assessment & Plan: continue zosyn empirically for 8 days , aspiration precaution and keep HOB> 30 degree all the time (2) Pleural effusion on right Assessment & Plan: parapneumonic VS pancreatitis related VS volume overload. S/ P thoracentesis and fluids to be sent for cytology, cell count with DIFF, culture/fungal, PH, amylase, LDH (3) Acute pancreatitis Assessment & Plan: continue supportive care , monitor lipase level (4) Nausea and vomiting in adult patient Assessment & Plan: due to the above, continue supportive care Subjective Constitutional: Reports: no symptoms HEENT: Reports: no symptoms Respiratory: Reports: no symptoms Breasts: Reports: no symptoms Cardiovascular: Reports: no symptoms Gastrointestinal/Abdominal: Reports: no symptoms Genitourinary: Reports: no symptoms Neurologic: Reports: no symptoms Psychiatric: Reports: no symptoms Skin: Reports: no symptoms Endocrine: Reports: no symptoms Hematologic: Reports: no symptoms Musculoskeletal: Reports: no symptoms Allergies: Coded Allergies: No Known Allergies (Unverified , 10/09/18) Subjective had right thoracentesis with removal of 2000 cc of clear fluids from the right pleural space Objective Vital Signs Last 24 Hour Vital Signs Date Time Temp Pulse Resp B/P (MAP) Pulse Ox O2 Delivery O2 Flow Rate FiO2 10/12/18 16:55 98.6 85 18 165/74 (104) 97 10/12/18 15:17 80 18 100 Room Air 10/12/18 15:07 78 20 99 Room Air 10/12/18 12:00 98.3 74 19 135/80 (98) 98 10/12/18 11:30 81 20 100 Room Air 10/12/18 11:17 79 17 99 Room Air 10/12/18 08:00 Room Air Room Air 10/12/18 08:00 98.1 78 20 140/78 (98) 99 10/12/18 07:34 77 17 100 Room Air 10/12/18 07:24 76 16 100 Room Air 10/12/18 04:10 78 18 99 Room Air 10/12/18 04:05 73 18 98 Room Air 10/12/18 04:00 97.9 73 20 147/76 (99) 100 10/12/18 04:00 Room Air Room Air 10/12/18 00:31 Room Air Room Air 10/12/18 00:00 98.3 80 18 145/67 (93) 100 10/11/18 23:18 78 18 99 Room Air 21 10/11/18 23:08 78 18 98 Room Air 21 10/11/18 20:00 Room Air Room Air 10/11/18 20:00 99.5 84 16 147/66 (93) 97 10/11/18 19:42 79 18 99 Room Air 21 10/11/18 19:32 78 18 98 Room Air 21 Height (Feet): 5 Height (Inches): 3.00 Weight (Pounds): 139 General Appearance: WD/WN, no acute distress HEENT: normocephalic, atraumatic, anicteric, mucous membranes moist, PERRL, EOMI, pharynx normal, supple, no JVD Respiratory/Chest: chest wall non-tender, no respiratory distress, no accessory muscle use, decreased breath sounds Cardiovascular: normal peripheral pulses, normal rate, regular rhythm, no gallop/murmur, no JVD Abdomen: normal bowel sounds, soft, non tender, no organomegaly, non distended , no mass, no scars Genitourinary: normal external genitalia Extremities: no cyanosis, no clubbing Skin: no rash, no lesions, no ulcers Neurologic/Psychiatric: outside sales professional II-XII grossly normal, no motor/sensory deficits, abnormal gait, alert, oriented x 3, responsive Lymphatic: no neck adenopathy, no groin adenopathy Musculoskeletal: normal muscle bulk, no effusion Microbiology Date/Time Source Procedure Growth Status 10/10/18 08:35 Blood Blood Culture - Preliminary NO GROWTH AFTER 24 HOURS Resulted 10/10/18 08:20 Blood Blood Culture - Preliminary NO GROWTH AFTER 24 HOURS Resulted 10/10/18 04:15 Blood Blood Culture - Preliminary NO GROWTH AFTER 48 HOURS Resulted 10/10/18 04:10 Blood Blood Culture - Preliminary NO GROWTH AFTER 48 HOURS Resulted 10/10/18 01:00 Pleural Fluid Gram Stain - Final Resulted 10/10/18 01:00 Pleural Fluid Body Fluid Culture - Preliminary NO GROWTH AFTER 24 HOURS Resulted 10/10/18 02:30 Urine,Clean Catch Urine Culture - Preliminary Mixed Gram Positive Organism Resulted Laboratory Tests Test 10/12/18 06:25 White Blood Count 6.1 K/UL (4.8-10.8) Red Blood Count 2.83 M/UL (4.70-6.10) L Hemoglobin 8.8 G/DL (14.2-18.0) L Hematocrit 25.8 % (42.0-52.0) L Mean Corpuscular Volume 91 FL (80-99) Mean Corpuscular Hemoglobin 30.9 PG (27.0-31.0) Mean Corpuscular Hemoglobin Concent 33.9 G/DL (32.0-36.0) Red Cell Distribution Width 13.5 % (11.6-14.8) Platelet Count 233 K/UL (150-450) Mean Platelet Volume 5.6 FL (6.5-10.1) L Neutrophils (%) (Auto) 68.1 % (45.0-75.0) Lymphocytes (%) (Auto) 16.9 % (20.0-45.0) L Monocytes (%) (Auto) 10.8 % (1.0-10.0) H Eosinophils (%) (Auto) 3.3 % (0.0-3.0) H Basophils (%) (Auto) 0.9 % (0.0-2.0) Sodium Level 137 MMOL/L (136-145) Potassium Level 4.6 MMOL/L (3.5-5.1) Chloride Level 98 MMOL/L (98-107) Carbon Dioxide Level 24 MMOL/L (21-32) Anion Gap 15 mmol/L (5-15) Blood Urea Nitrogen 59 mg/dL (7-18) H Creatinine 7.9 MG/DL (0.55-1.30) H Estimat Glomerular Filtration Rate 7.0 mL/min (>60) Glucose Level 91 MG/DL (74-106) Calcium Level 8.3 MG/DL (8.5-10.1) L Phosphorus Level Pending Total Bilirubin 0.5 MG/DL (0.2-1.0) Aspartate Amino Transf (AST/SGOT) 16 U/L (15-37) Alanine Aminotransferase (ALT/SGPT) 14 U/L (12-78) Alkaline Phosphatase 80 U/L (46-116) Total Protein 7.7 G/DL (6.4-8.2) Albumin 2.8 G/DL (3.4-5.0) L Globulin 4.9 g/dL Albumin/Globulin Ratio 0.6 (1.0-2.7) L Current Medications Medications (Trade) Dose Ordered Sig/Anish Route PRN Reason Start Time Stop Time Status Last Admin Dose Admin Albuterol/ Ipratropium (Albuterol/ Ipratropium) 3 ml Q4HRT HHN 10/11/18 15:00 10/14/18 10:59 10/12/18 15:06 Epoetin Isidro (Epoetin Isidro(ESRD on dialysis)) 10,000 unit TUE-TUE-TUE SUBQ 10/11/18 21:00 11/10/18 20:59 10/11/18 22:01 Heparin Sodium (Porcine) (Heparin 5000 units/ml) 5,000 units EVERY 12 HOURS SUBQ 10/11/18 21:00 11/10/18 08:59 10/12/18 10:11 Hydralazine HCl (Apresoline) 10 mg Q4H PRN IV bp over 160 syst 10/11/18 13:04 11/08/18 13:03 Hydromorphone HCl (Dilaudid) 0.5 mg Q4H PRN IVP For Pain 10/11/18 13:05 10/16/18 13:04 Iron Sucrose 100 mg/Sodium Chloride 55 ml @ 200 mls/hr BEDTIME IV 10/11/18 21:00 10/12/18 21:17 10/11/18 21:00 Meclizine HCl (Antivert) 25 mg Q6H PRN ORAL for dizziness 10/12/18 10:45 11/11/18 10:44 Metoclopramide HCl (Reglan) 10 mg Q6H PRN IVP Nausea & Vomiting 10/11/18 13:05 11/08/18 13:04 Pantoprazole (Protonix) 40 mg EVERY 12 HOURS ORAL 10/11/18 21:00 11/10/18 20:59 10/12/18 10:09 Piperacillin Sod/ Tazobactam Sod 2.25 gm/Dextrose 55 ml @ 110 mls/hr Q8HR IVPB 10/11/18 14:00 10/14/18 08:59 10/12/18 06:00 Vancomycin HCl (Vanco rx to dose) 1 ea DAILY PRN MISC Per rx protocol 10/11/18 13:05 11/10/18 13:04 Jeff Mendez M.D. Oct 12, 2018 17:21
[2018-10-12] MEDS ORDERED: Tubing IV Secondary IV ONE (19:37)
[2018-10-12] MEDS ORDERED: NS 500ML ONE (19:37)
[2018-10-12 20:00] VITALS: BP 172/81
[2018-10-13] VITALS: BP 141/80
[2018-10-13] MEDS: Albuterol/Ipratropium 3ml neb HHN SCH ×6 (03:34→23:27)
[2018-10-13 04:10] VITALS: BP 136/58
[2018-10-13] MEDS: Piperacillin/Tazobactam 2.25 GM in D5W 55 ML IVPB SCH ×3 (05:03→21:55)
[2018-10-13 06:22] LABS: BASOPHILS % (AUTO) 0.8 % (0.0-2.0); HEMATOCRIT 26.6 % (42.0-52.0); HEMOGLOBIN 8.8 G/DL (14.2-18.0); LYMPHOCYTES % (AUTO) 18.9 % (20.0-45.0); MEAN CORPUSCULAR VOLUME 91 FL (80-99); MONOCYTES % (AUTO) 11.1 % (1.0-10.0); NEUTROPHILS % (AUTO) 66.2 % (45.0-75.0); PLATELET COUNT 231 K/UL (150-450); RED BLOOD COUNT 2.93 M/UL (4.70-6.10); RED CELL DISTRIBUTION WIDTH 13.4 % (11.6-14.8); WHITE BLOOD COUNT 6.3 K/UL (4.8-10.8)
[2018-10-13 06:47] LABS: ALANINE AMINOTRANSFERASE 14 U/L (12-78); ALBUMIN 2.8 G/DL (3.4-5.0); ALBUMIN/GLOBULIN RATIO 0.6 (1.0-2.7); ALKALINE PHOSPHATASE 82 U/L (46-116); ANION GAP 10 mmol/L (5-15); ASPARTATE AMINO TRANSFERASE 15 U/L (15-37); BILIRUBIN,TOTAL 0.5 MG/DL (0.2-1.0); BLOOD UREA NITROGEN 37 mg/dL (7-18); CALCIUM 8.6 MG/DL (8.5-10.1); CARBON DIOXIDE 31 MMOL/L (21-32); CHLORIDE 98 MMOL/L (98-107); CREATININE 6.6 MG/DL (0.55-1.30); POTASSIUM 3.6 MMOL/L (3.5-5.1); SODIUM 139 MMOL/L (136-145)
[2018-10-13 08:00] VITALS: BP 137/69
[2018-10-13] MEDS: Heparin 5000 units/ml inj SUBQ SCH ×2 (08:10→21:50)
--- NOTE | 2018-10-13 10:50 | GI Progress Note ---
Assessment/Plan Problems: (1) Ascites ICD Codes: R18.8 - Other ascites SNOMED: 983957938 (2) Anemia ICD Codes: D64.9 - Anemia, unspecified SNOMED: 764049824 (3) Nausea and vomiting in adult patient ICD Codes: R11.2 - Nausea with vomiting, unspecified SNOMED: 42561488 (4) Aspiration pneumonia of right upper lobe ICD Codes: J69.0 - Pneumonitis due to inhalation of food and vomit SNOMED: 779250967, 293584957 (5) Pleural effusion on right ICD Codes: J90 - Pleural effusion, not elsewhere classified SNOMED: 84996113 (6) Acute pancreatitis ICD Codes: K85.90 - Acute pancreatitis without necrosis or infection, unspecified SNOMED: 764617273 Status: stable Status Narrative Discussed with Dr. Jack. Assessment/Plan Lipase within normal limits Abdominal ultrasound reviewed, noted with small ascites Status post thoracentesis Hepatitis panel negative Anemia workup reviewed OB stool negative recent history of colonoscopy renal diet Monitor H&H, PRN transfusions PPI Zofran as needed, reglan meclizine for vertigo pain mgmt Follow labs Pulmonary care outpatient GI procedures The patient was seen and examined at bedside and all new and available data was reviewed in the patients chart. I agree with the above findings, impression and plan. (Patient seen earlier today. Signature stamp does not reflect patient encounter time.). - Slava Jack MD Subjective Subjective Complaint of dizziness and some nausea Denies any abdominal pain Objective Last 24 Hour Vital Signs Date Time Temp Pulse Resp B/P (MAP) Pulse Ox O2 Delivery O2 Flow Rate FiO2 10/13/18 09:02 Room Air Room Air 10/13/18 08:00 98.4 73 18 137/69 (91) 96 10/13/18 07:36 80 19 99 Room Air 21 10/13/18 07:26 79 21 97 Room Air 21 10/13/18 04:10 99.0 78 18 136/58 (84) 96 10/13/18 03:44 76 20 99 Room Air 21 10/13/18 03:34 76 20 97 Room Air 21 10/13/18 00:00 97.9 86 18 141/80 (100) 99 10/12/18 23:22 81 20 99 Room Air 21 10/12/18 23:12 84 20 96 Room Air 21 10/12/18 21:50 Room Air Room Air 10/12/18 20:00 99.0 86 18 172/81 (111) 99 10/12/18 19:53 84 20 99 Room Air 21 10/12/18 19:43 89 20 96 Room Air 21 10/12/18 16:55 98.6 85 18 165/74 (104) 97 10/12/18 15:17 80 18 100 Room Air 21 10/12/18 15:07 78 20 99 Room Air 21 10/12/18 12:00 98.3 74 19 135/80 (98) 98 10/12/18 11:30 81 20 100 Room Air 21 10/12/18 11:17 79 17 99 Room Air 21 Intake and Output 10/12/18 10/13/18 19:00 07:00 Intake Total 860 ml Balance 860 ml Intake Oral 860 ml # Voids 1 # Bowel Movements 1 Laboratory Tests Test 10/13/18 05:45 White Blood Count 6.3 K/UL (4.8-10.8) Red Blood Count 2.93 M/UL (4.70-6.10) L Hemoglobin 8.8 G/DL (14.2-18.0) L Hematocrit 26.6 % (42.0-52.0) L Mean Corpuscular Volume 91 FL (80-99) Mean Corpuscular Hemoglobin 29.9 PG (27.0-31.0) Mean Corpuscular Hemoglobin Concent 32.9 G/DL (32.0-36.0) Red Cell Distribution Width 13.4 % (11.6-14.8) Platelet Count 231 K/UL (150-450) Mean Platelet Volume 5.3 FL (6.5-10.1) L Neutrophils (%) (Auto) 66.2 % (45.0-75.0) Lymphocytes (%) (Auto) 18.9 % (20.0-45.0) L Monocytes (%) (Auto) 11.1 % (1.0-10.0) H Eosinophils (%) (Auto) 3.0 % (0.0-3.0) Basophils (%) (Auto) 0.8 % (0.0-2.0) Sodium Level 139 MMOL/L (136-145) Potassium Level 3.6 MMOL/L (3.5-5.1) Chloride Level 98 MMOL/L (98-107) Carbon Dioxide Level 31 MMOL/L (21-32) Anion Gap 10 mmol/L (5-15) Blood Urea Nitrogen 37 mg/dL (7-18) H Creatinine 6.6 MG/DL (0.55-1.30) H Estimat Glomerular Filtration Rate 8.7 mL/min (>60) Glucose Level 109 MG/DL (74-106) H Calcium Level 8.6 MG/DL (8.5-10.1) Phosphorus Level 7.3 MG/DL (2.5-4.9) H Magnesium Level 2.1 MG/DL (1.8-2.4) Total Bilirubin 0.5 MG/DL (0.2-1.0) Aspartate Amino Transf (AST/SGOT) 15 U/L (15-37) Alanine Aminotransferase (ALT/SGPT) 14 U/L (12-78) Alkaline Phosphatase 82 U/L (46-116) Total Protein 7.6 G/DL (6.4-8.2) Albumin 2.8 G/DL (3.4-5.0) L Globulin 4.8 g/dL Albumin/Globulin Ratio 0.6 (1.0-2.7) L Height (Feet): 5 Height (Inches): 3.00 Weight (Pounds): 134 General Appearance: WD/WN, no apparent distress, alert Cardiovascular: normal rate Respiratory/Chest: normal breath sounds, no respiratory distress Abdominal Exam: normal bowel sounds, non tender, soft Extremities: normal range of motion, non-tender Kevin Soriano ORDER CHECKER PACKER PROCESSER Oct 13, 2018 10:50
[2018-10-13 12:00] VITALS: BP 136/75
--- NOTE | 2018-10-13 12:58 | General Progress Note ---
Assessment/Plan Assessment/Plan S: I am feeling better O:Denies sob. denies chest pain PHYSICAL EXAMINATION:HEAD AND NECK: Atraumatic and normocephalic. CHEST: Lack of breathing in the right side and bronchial breathing sounds in the other side.NEUROLOGIC: The patient is awake, alert, and oriented x3. MUSCULOSKELETAL: Positive for the AV fistula in the left upper arm. No tenderness. No redness.NEUROLOGIC: The patient is delirious. Meds: reviewed and reconciled in the chart ASSESSMENT AND PLAN: 1. Sepsis. 2. Acute encephalopathy. 3. Hypoxemic respiratory failure. 4. Right-sided pleural effusion post drainage 5. End-stage renal disease, on hemodialysis. 6. Anemia. 7. GI and DVT prophylaxis. PLAN OF CARE: Recurrent Effusion , Post Thoracenthesis current pulmonary mgt c/w HD Subjective Allergies: Coded Allergies: No Known Allergies (Unverified , 10/09/18) Objective Last 24 Hour Vital Signs Date Time Temp Pulse Resp B/P (MAP) Pulse Ox O2 Delivery O2 Flow Rate FiO2 10/13/18 11:20 77 18 100 Room Air 10/13/18 11:10 75 17 96 Room Air 10/13/18 09:02 Room Air Room Air 10/13/18 08:00 98.4 73 18 137/69 (91) 96 10/13/18 07:36 80 19 99 Room Air 21 10/13/18 07:26 79 21 97 Room Air 21 10/13/18 04:10 99.0 78 18 136/58 (84) 96 10/13/18 03:44 76 20 99 Room Air 10/13/18 03:34 76 20 97 Room Air 21 10/13/18 00:00 97.9 86 18 141/80 (100) 99 10/12/18 23:22 81 20 99 Room Air 21 10/12/18 23:12 84 20 96 Room Air 21 10/12/18 21:50 Room Air Room Air 10/12/18 20:00 99.0 86 18 172/81 (111) 99 10/12/18 19:53 84 20 99 Room Air 21 10/12/18 19:43 89 20 96 Room Air 21 10/12/18 16:55 98.6 85 18 165/74 (104) 97 10/12/18 15:17 80 18 100 Room Air 21 10/12/18 15:07 78 20 99 Room Air 21 Intake and Output 10/12/18 10/13/18 19:00 07:00 Intake Total 860 ml Balance 860 ml Intake Oral 860 ml # Voids 1 # Bowel Movements 1 Laboratory Tests 10/13/18 05:45: White Blood Count 6.3, Red Blood Count 2.93L, Hemoglobin 8.8L, Hematocrit 26.6L , Mean Corpuscular Volume 91, Mean Corpuscular Hemoglobin 29.9, Mean Corpuscular Hemoglobin Concent 32.9, Red Cell Distribution Width 13.4, Platelet Count 231, Mean Platelet Volume 5.3L, Neutrophils (%) (Auto) 66.2, Lymphocytes ( %) (Auto) 18.9L, Monocytes (%) (Auto) 11.1H, Eosinophils (%) (Auto) 3.0, Basophils (%) (Auto) 0.8, Sodium Level 139, Potassium Level 3.6, Chloride Level 98, Carbon Dioxide Level 31, Anion Gap 10, Blood Urea Nitrogen 37H, Creatinine 6.6H, Estimat Glomerular Filtration Rate 8.7, Glucose Level 109H, Calcium Level 8.6, Phosphorus Level 7.3H, Magnesium Level 2.1, Total Bilirubin 0.5, Aspartate Amino Transf (AST/SGOT) 15, Alanine Aminotransferase (ALT/SGPT) 14, Alkaline Phosphatase 82, Total Protein 7.6, Albumin 2.8L, Globulin 4.8, Albumin/Globulin Ratio 0.6L Height (Feet): 5 Height (Inches): 3.00 Weight (Pounds): 134 Cortney Grullon MD Oct 13, 2018 12:58
--- NOTE | 2018-10-13 13:21 | Pulmonology Progress Note ---
Assessment/Plan Problems: (1) Pleural effusion on right (2) Acute pancreatitis (3) Nausea and vomiting in adult patient (4) Aspiration pneumonia of right upper lobe (5) Ascites (6) Anemia (7) ESRD (end stage renal disease) on dialysis (8) Anemia due to chronic kidney disease Assessment/Plan ASSESSMENT: The patient is a 58-year-old male with end-stage renal disease, on dialysis Tuesday, , Tuesday, presenting with abdominal pain and nausea secondary to pancreatitis, noted to have a large right-sided pleural effusion with subsequent compressive atelectasis and possible pneumonia. PROBLEM LIST: 1. Large right-sided effusion. 2. Compressive atelectasis. 3. Ground-glass opacity of the right lung, atelectasis versus infiltrate. 4. Left lower lobe pulmonary nodule. 5. Acute pancreatitis. 6. End-stage renal disease, on dialysis. TREATMENT PLAN: 1. Optimize pulmonary hygiene/mobilize as tolerated. 2. Monitor effusion 3. Observe of per ID. 4. Pleural effusion likely 2/2 starling forces and possible para-pneumonic component but prior CT is of poor quality to rule out an associated mass especially given the large component of compressive atelectasis. Will order a repeat THORACENTESIS and check a POST-THORACENTESIS CONTRAST CT. Will also repeat pleural fluid cytology. 5. Follow up GI recs, pain control/supportive care 6. Monitor volumes and renal function. HD per renal with UF as able 7. DVT prophylaxis: Hep SQ 8. Continue [id number] and p.r.n. bronchodilators. Subjective Allergies: Coded Allergies: No Known Allergies (Unverified , 10/09/18) Subjective AFVSS on RA CXR with recurrent large R sided effusion No F/C/CP/SOB/N/V/D/C/abd pain/urinary co Objective Last 24 Hour Vital Signs Date Time Temp Pulse Resp B/P (MAP) Pulse Ox O2 Delivery O2 Flow Rate FiO2 10/13/18 11:20 77 18 100 Room Air 21 10/13/18 11:10 75 17 96 Room Air 21 10/13/18 09:02 Room Air Room Air 10/13/18 08:00 98.4 73 18 137/69 (91) 96 10/13/18 07:36 80 19 99 Room Air 21 10/13/18 07:26 79 21 97 Room Air 21 10/13/18 04:10 99.0 78 18 136/58 (84) 96 10/13/18 03:44 76 20 99 Room Air 21 10/13/18 03:34 76 20 97 Room Air 21 10/13/18 00:00 97.9 86 18 141/80 (100) 99 10/12/18 23:22 81 20 99 Room Air 21 10/12/18 23:12 84 20 96 Room Air 21 10/12/18 21:50 Room Air Room Air 10/12/18 20:00 99.0 86 18 172/81 (111) 99 10/12/18 19:53 84 20 99 Room Air 21 10/12/18 19:43 89 20 96 Room Air 21 10/12/18 16:55 98.6 85 18 165/74 (104) 97 10/12/18 15:17 80 18 100 Room Air 21 10/12/18 15:07 78 20 99 Room Air 21 Intake and Output 10/12/18 10/13/18 19:00 07:00 Intake Total 860 ml Balance 860 ml Intake Oral 860 ml # Voids 1 # Bowel Movements 1 General Appearance: no acute distress, cachetic HEENT: normocephalic, atraumatic, anicteric, mucous membranes moist Respiratory/Chest: chest wall non-tender, lungs clear - but decreased @ R base , no respiratory distress, no accessory muscle use Cardiovascular: normal peripheral pulses, normal rate, regular rhythm Abdomen: normal bowel sounds, soft, non tender, no organomegaly, non distended , no mass Extremities: no cyanosis, no clubbing, no edema Microbiology Date/Time Source Procedure Growth Status 10/11/18 04:15 Blood Blood Culture - Preliminary NO GROWTH AFTER 48 HOURS Resulted 10/11/18 04:10 Blood Blood Culture - Preliminary NO GROWTH AFTER 48 HOURS Resulted Laboratory Tests 10/13/18 05:45: White Blood Count 6.3, Red Blood Count 2.93L, Hemoglobin 8.8L, Hematocrit 26.6L , Mean Corpuscular Volume 91, Mean Corpuscular Hemoglobin 29.9, Mean Corpuscular Hemoglobin Concent 32.9, Red Cell Distribution Width 13.4, Platelet Count 231, Mean Platelet Volume 5.3L, Neutrophils (%) (Auto) 66.2, Lymphocytes ( %) (Auto) 18.9L, Monocytes (%) (Auto) 11.1H, Eosinophils (%) (Auto) 3.0, Basophils (%) (Auto) 0.8, Sodium Level 139, Potassium Level 3.6, Chloride Level 98, Carbon Dioxide Level 31, Anion Gap 10, Blood Urea Nitrogen 37H, Creatinine 6.6H, Estimat Glomerular Filtration Rate 8.7, Glucose Level 109H, Calcium Level 8.6, Phosphorus Level 7.3H, Magnesium Level 2.1, Total Bilirubin 0.5, Aspartate Amino Transf (AST/SGOT) 15, Alanine Aminotransferase (ALT/SGPT) 14, Alkaline Phosphatase 82, Total Protein 7.6, Albumin 2.8L, Globulin 4.8, Albumin/Globulin Ratio 0.6L Current Medications Medications (Trade) Dose Ordered Sig/Anish Route PRN Reason Start Time Stop Time Status Last Admin Dose Admin Albuterol/ Ipratropium (Albuterol/ Ipratropium) 3 ml Q4HRT HHN 10/11/18 15:00 10/14/18 10:59 10/13/18 11:10 Epoetin Isidro (Epoetin Isidro(ESRD on dialysis)) 10,000 unit TUE-TUE-TUE SUBQ 10/11/18 21:00 11/10/18 20:59 10/11/18 22:01 Heparin Sodium (Porcine) (Heparin 5000 units/ml) 5,000 units EVERY 12 HOURS SUBQ 10/11/18 21:00 11/10/18 08:59 10/13/18 08:10 Hydralazine HCl (Apresoline) 10 mg Q4H PRN IV bp over 160 syst 10/11/18 13:04 11/08/18 13:03 Hydromorphone HCl (Dilaudid) 0.5 mg Q4H PRN IVP For Pain 10/11/18 13:05 10/16/18 13:04 Meclizine HCl (Antivert) 25 mg Q6H PRN ORAL for dizziness 10/12/18 10:45 11/11/18 10:44 Metoclopramide HCl (Reglan) 10 mg Q6H PRN IVP Nausea & Vomiting 10/11/18 13:05 11/08/18 13:04 10/13/18 08:10 Pantoprazole (Protonix) 40 mg EVERY 12 HOURS ORAL 10/11/18 21:00 11/10/18 20:59 10/13/18 08:10 Piperacillin Sod/ Tazobactam Sod 2.25 gm/Dextrose 55 ml @ 110 mls/hr Q8HR IVPB 10/11/18 14:00 10/14/18 08:59 10/13/18 13:04 Sevelamer Carbonate (Renvela) 1,600 mg THREE TIMES A DAY ORAL 10/13/18 09:00 11/12/18 08:59 10/13/18 13:04 Gagan Knight MD Oct 13, 2018 13:21
[2018-10-13 14:55] LABS: INR 1.1 (0.9-1.1)
--- NOTE | 2018-10-13 15:16 | Pre-Procedure Note/Attestation ---
Pre-Procedure Note/Attestation Complete Prior to Procedure Planned Procedure: right Procedure Narrative: thoracentesis Indications for Procedure Pre-Operative Diagnosis: R pleural effusion Attestation I attest that I discussed the nature of the procedure; its benefits; risks and complications; and alternatives (and the risks and benefits of such alternatives ), prior to the procedure, with the patient (or the patient's legal employee representative). I attest that, if there was a reasonable possibility of needing a blood transfusion, the patient (or the patient's legal employee representative) was given the [facility] standardized written summary, pursuant to the Jeromy Jonathan Blood Safety Act ([place] Health and Safety Code # 1645, as amended). I attest that I re-evaluated the patient just prior to the surgery and that there has been no change in the patient's H&P, except as documented below: Zoran Mccain MD Oct 13, 2018 15:16
--- NOTE | 2018-10-13 15:17 | Brief Operative Note ---
Immediate Post Operative Note Operative Note Pre-op Diagnosis: R pleural effusion Procedure: R thoracentesis Post-op Diagnosis: same as pre-op Findings: consistent w/pre-op dx studies Surgeon: Theresa Templeton Anesthesia: local Specimen: yes - rust colored fluid sent to lab Complications: none Condition: stable Fluids: none Implant(s) used?: No Zoran Templeton MD Oct 13, 2018 15:17
--- NOTE | 2018-10-13 15:36 | Diagnostic Imaging Report ---
Indication: Status post thoracentesis Technique: One view of the chest Comparison: October 12, 2018 Findings: Interim resolution of previously demonstrated right pleural effusion, status post thoracentesis. No pneumothorax demonstrated. The lungs and pleural spaces are currently clear. The heart is mildly enlarged. Impression: Resolved right pleural effusion, post thoracentesis. No radiographically evident complication
[2018-10-13 16:00] VITALS: BP 155/76
[2018-10-13] MEDS ORDERED: Isovue-300 100ml vial INJ PRN (16:45)
--- NOTE | 2018-10-13 16:47 | Infectious Diseases Prog Note ---
Assessment/Plan Problems: (1) Aspiration pneumonia of right upper lobe Assessment & Plan: continue zosyn empirically for 8 days , aspiration precaution and keep HOB> 30 degree all the time (2) Pleural effusion on right Assessment & Plan: parapneumonic VS pancreatitis related VS volume overload. S/ P thoracentesis and fluids to be sent for cytology, cell count with DIFF, culture/fungal, PH, amylase, LDH (3) Acute pancreatitis Assessment & Plan: continue supportive care , monitor lipase level (4) Nausea and vomiting in adult patient Assessment & Plan: due to the above, continue supportive care Subjective ROS Limited/Unobtainable: Yes Constitutional: Reports: no symptoms HEENT: Reports: no symptoms Respiratory: Reports: no symptoms Breasts: Reports: no symptoms Cardiovascular: Reports: no symptoms Gastrointestinal/Abdominal: Reports: no symptoms Genitourinary: Reports: no symptoms Neurologic: Reports: no symptoms Psychiatric: Reports: no symptoms Skin: Reports: no symptoms Endocrine: Reports: no symptoms Hematologic: Reports: no symptoms Musculoskeletal: Reports: no symptoms Allergies: Coded Allergies: No Known Allergies (Unverified , 10/09/18) Subjective had right thoracentesis with removal of 2000 cc of clear fluids from the right pleural space Objective Vital Signs Last 24 Hour Vital Signs Date Time Temp Pulse Resp B/P (MAP) Pulse Ox O2 Delivery O2 Flow Rate FiO2 10/13/18 15:07 Room Air 10/13/18 15:07 Room Air 10/13/18 12:00 98.1 81 18 136/75 (95) 96 10/13/18 11:20 77 18 100 Room Air 10/13/18 11:10 75 17 96 Room Air 10/13/18 09:02 Room Air Room Air 10/13/18 08:00 98.4 73 18 137/69 (91) 96 10/13/18 07:36 80 19 99 Room Air 10/13/18 07:26 79 21 97 Room Air 10/13/18 04:10 99.0 78 18 136/58 (84) 96 10/13/18 03:44 76 20 99 Room Air 10/13/18 03:34 76 20 97 Room Air 10/13/18 00:00 97.9 86 18 141/80 (100) 99 10/12/18 23:22 81 20 99 Room Air 10/12/18 23:12 84 20 96 Room Air 21 10/12/18 21:50 Room Air Room Air 10/12/18 20:00 99.0 86 18 172/81 (111) 99 10/12/18 19:53 84 20 99 Room Air 21 10/12/18 19:43 89 20 96 Room Air 21 10/12/18 16:55 98.6 85 18 165/74 (104) 97 Height (Feet): 5 Height (Inches): 3.00 Weight (Pounds): 134 General Appearance: WD/WN, no acute distress HEENT: normocephalic, atraumatic, anicteric, mucous membranes moist, PERRL Respiratory/Chest: chest wall non-tender, lungs clear, normal breath sounds, no respiratory distress, no accessory muscle use Cardiovascular: normal peripheral pulses, normal rate, regular rhythm, no gallop/murmur, no JVD Abdomen: normal bowel sounds, soft, non tender, no organomegaly, non distended , no mass, no scars Genitourinary: normal external genitalia Extremities: no cyanosis, no clubbing Skin: no rash, no lesions, no ulcers Neurologic/Psychiatric: manager contract II-XII grossly normal, no motor/sensory deficits, alert, oriented x 3, responsive Lymphatic: no neck adenopathy, no groin adenopathy Musculoskeletal: normal muscle bulk, no effusion Microbiology Date/Time Source Procedure Growth Status 10/11/18 04:15 Blood Blood Culture - Preliminary NO GROWTH AFTER 48 HOURS Resulted 10/11/18 04:10 Blood Blood Culture - Preliminary NO GROWTH AFTER 48 HOURS Resulted Laboratory Tests Test 10/13/18 05:45 10/13/18 14:18 10/13/18 14:40 White Blood Count 6.3 K/UL (4.8-10.8) Red Blood Count 2.93 M/UL (4.70-6.10) L Hemoglobin 8.8 G/DL (14.2-18.0) L Hematocrit 26.6 % (42.0-52.0) L Mean Corpuscular Volume 91 FL (80-99) Mean Corpuscular Hemoglobin 29.9 PG (27.0-31.0) Mean Corpuscular Hemoglobin Concent 32.9 G/DL (32.0-36.0) Red Cell Distribution Width 13.4 % (11.6-14.8) Platelet Count 231 K/UL (150-450) Mean Platelet Volume 5.3 FL (6.5-10.1) L Neutrophils (%) (Auto) 66.2 % (45.0-75.0) Lymphocytes (%) (Auto) 18.9 % (20.0-45.0) L Monocytes (%) (Auto) 11.1 % (1.0-10.0) H Eosinophils (%) (Auto) 3.0 % (0.0-3.0) Basophils (%) (Auto) 0.8 % (0.0-2.0) Sodium Level 139 MMOL/L (136-145) Potassium Level 3.6 MMOL/L (3.5-5.1) Chloride Level 98 MMOL/L (98-107) Carbon Dioxide Level 31 MMOL/L (21-32) Anion Gap 10 mmol/L (5-15) Blood Urea Nitrogen 37 mg/dL (7-18) H Creatinine 6.6 MG/DL (0.55-1.30) H Estimat Glomerular Filtration Rate 8.7 mL/min (>60) Glucose Level 109 MG/DL (74-106) H Calcium Level 8.6 MG/DL (8.5-10.1) Phosphorus Level 7.3 MG/DL (2.5-4.9) H Magnesium Level 2.1 MG/DL (1.8-2.4) Total Bilirubin 0.5 MG/DL (0.2-1.0) Aspartate Amino Transf (AST/SGOT) 15 U/L (15-37) Alanine Aminotransferase (ALT/SGPT) 14 U/L (12-78) Alkaline Phosphatase 82 U/L (46-116) Total Protein 7.6 G/DL (6.4-8.2) Albumin 2.8 G/DL (3.4-5.0) L Globulin 4.8 g/dL Albumin/Globulin Ratio 0.6 (1.0-2.7) L Prothrombin Time 12.0 SEC (9.30-11.50) H Prothromb Time International Ratio 1.1 (0.9-1.1) Body Fluid Source Pending Body Fluid Volume Pending Body Fluid Appearance Pending Body Fluid RBC Pending Body Fluid Total Nucleated Cells Pending Body Fluid Polynuclear WBCs (%) Pending Body Fluid Mononuclear WBCs (%) Pending Body Fluid Mesothelial Cells (%) Pending Body Fluid Total Protein Pending Body Fluid Lactate Dehydrogenase Pending Current Medications Medications (Trade) Dose Ordered Sig/Anish Route PRN Reason Start Time Stop Time Status Last Admin Dose Admin Albuterol/ Ipratropium (Albuterol/ Ipratropium) 3 ml Q4HRT HHN 10/11/18 15:00 10/14/18 10:59 10/13/18 11:10 Epoetin Isidro (Epoetin Isidro(ESRD on dialysis)) 10,000 unit TUE-TUE-TUE SUBQ 10/11/18 21:00 11/10/18 20:59 10/11/18 22:01 Heparin Sodium (Porcine) (Heparin 5000 units/ml) 5,000 units EVERY 12 HOURS SUBQ 10/11/18 21:00 11/10/18 08:59 10/13/18 08:10 Hydralazine HCl (Apresoline) 10 mg Q4H PRN IV bp over 160 syst 10/11/18 13:04 11/08/18 13:03 Hydromorphone HCl (Dilaudid) 0.5 mg Q4H PRN IVP For Pain 10/11/18 13:05 10/16/18 13:04 Meclizine HCl (Antivert) 25 mg Q6H PRN ORAL for dizziness 10/12/18 10:45 11/11/18 10:44 Metoclopramide HCl (Reglan) 10 mg Q6H PRN IVP Nausea & Vomiting 10/11/18 13:05 11/08/18 13:04 10/13/18 08:10 Pantoprazole (Protonix) 40 mg EVERY 12 HOURS ORAL 10/11/18 21:00 11/10/18 20:59 10/13/18 08:10 Piperacillin Sod/ Tazobactam Sod 2.25 gm/Dextrose 55 ml @ 110 mls/hr Q8HR IVPB 10/11/18 14:00 10/18/18 13:59 10/13/18 13:04 Sevelamer Carbonate (Renvela) 1,600 mg THREE TIMES A DAY ORAL 10/13/18 09:00 11/12/18 08:59 10/13/18 13:04 Jeff Mendez M.D. Oct 13, 2018 16:47
--- NOTE | 2018-10-13 16:49 | Nephrology Progress Note ---
Assessment/Plan Problem List: (1) ESRD (end stage renal disease) on dialysis (2) Acute pancreatitis (3) Anemia due to chronic kidney disease (4) Pleural effusion on right Assessment ESRD Tue Marilee Sat - has left arm fistula HTN Anemia Pancreatitis Plan Renal diet HD today 10/14 Phos binders PO Protonix DC IV Fluids IV Reglan PRN per consultants Subjective ROS Limited/Unobtainable: No Constitutional: Reports: malaise Objective Objective Last 24 Hour Vital Signs Date Time Temp Pulse Resp B/P (MAP) Pulse Ox O2 Delivery O2 Flow Rate FiO2 10/13/18 15:07 Room Air 21 10/13/18 15:07 Room Air 21 10/13/18 12:00 98.1 81 18 136/75 (95) 96 10/13/18 11:20 77 18 100 Room Air 21 10/13/18 11:10 75 17 96 Room Air 21 10/13/18 09:02 Room Air Room Air 10/13/18 08:00 98.4 73 18 137/69 (91) 96 10/13/18 07:36 80 19 99 Room Air 21 10/13/18 07:26 79 21 97 Room Air 21 10/13/18 04:10 99.0 78 18 136/58 (84) 96 10/13/18 03:44 76 20 99 Room Air 21 10/13/18 03:34 76 20 97 Room Air 21 10/13/18 00:00 97.9 86 18 141/80 (100) 99 10/12/18 23:22 81 20 99 Room Air 21 10/12/18 23:12 84 20 96 Room Air 10/12/18 21:50 Room Air Room Air 10/12/18 20:00 99.0 86 18 172/81 (111) 99 10/12/18 19:53 84 20 99 Room Air 21 10/12/18 19:43 89 20 96 Room Air 21 10/12/18 16:55 98.6 85 18 165/74 (104) 97 Intake and Output 10/12/18 10/13/18 19:00 07:00 Intake Total 860 ml Balance 860 ml Intake Oral 860 ml # Voids 1 # Bowel Movements 1 Laboratory Tests 10/13/18 05:45: White Blood Count 6.3, Red Blood Count 2.93L, Hemoglobin 8.8L, Hematocrit 26.6L , Mean Corpuscular Volume 91, Mean Corpuscular Hemoglobin 29.9, Mean Corpuscular Hemoglobin Concent 32.9, Red Cell Distribution Width 13.4, Platelet Count 231, Mean Platelet Volume 5.3L, Neutrophils (%) (Auto) 66.2, Lymphocytes ( %) (Auto) 18.9L, Monocytes (%) (Auto) 11.1H, Eosinophils (%) (Auto) 3.0, Basophils (%) (Auto) 0.8, Sodium Level 139, Potassium Level 3.6, Chloride Level 98, Carbon Dioxide Level 31, Anion Gap 10, Blood Urea Nitrogen 37H, Creatinine 6.6H, Estimat Glomerular Filtration Rate 8.7, Glucose Level 109H, Calcium Level 8.6, Phosphorus Level 7.3H, Magnesium Level 2.1, Total Bilirubin 0.5, Aspartate Amino Transf (AST/SGOT) 15, Alanine Aminotransferase (ALT/SGPT) 14, Alkaline Phosphatase 82, Total Protein 7.6, Albumin 2.8L, Globulin 4.8, Albumin/Globulin Ratio 0.6L 10/13/18 14:18: Prothrombin Time 12.0H, Prothromb Time International Ratio 1.1 10/13/18 14:40: Body Fluid Source [Pending], Body Fluid Volume [Pending], Body Fluid Appearance [Pending], Body Fluid RBC [Pending], Body Fluid Total Nucleated Cells [Pending] , Body Fluid Polynuclear WBCs (%) [Pending], Body Fluid Mononuclear WBCs (%) [ Pending], Body Fluid Mesothelial Cells (%) [Pending], Body Fluid Total Protein [ Pending], Body Fluid Lactate Dehydrogenase [Pending] Height (Feet): 5 Height (Inches): 3.00 Weight (Pounds): 134 General Appearance: no apparent distress Cardiovascular: normal rate Respiratory/Chest: decreased breath sounds Abdomen: distended Objective no change Matthieu Gustafson MD Oct 13, 2018 16:49
--- NOTE | 2018-10-13 18:54 | Diagnostic Imaging Report ---
EXAM: CT Chest With Intravenous Contrast CLINICAL HISTORY: PLEFF TECHNIQUE: Axial computed tomography images of the chest with intravenous contrast. CTDI is 0.15+8.11+ 113.56 +18.33 mGy and DLP is 831 mGy-cm. One or more of the following dose reduction techniques were used: automated exposure control, adjustment of the mA and/or kV according to patient size, use of iterative reconstruction technique. COMPARISON: No relevant prior studies available. FINDINGS: Lungs: Ground glass opacities in the right lower lobe with minimal components in the right middle and upper lobes as well. Pleural space: Moderate right pleural effusion. Heart: Cardiomegaly. Bones/joints: No acute fracture. Soft tissues: Unremarkable. Vasculature: Unremarkable. No thoracic aortic aneurysm. Lymph nodes: No enlarged lymph nodes. Kidneys and ureters: Renal cysts and too small to characterize low- attenuation foci. Intraperitoneal space: Fluid in the upper abdomen. IMPRESSION: Ground glass opacities in the right lower lobe with minimal components in the right middle and upper lobes as well. Could be asymmetric edema. There is a broader differential.
[2018-10-13 20:00] VITALS: BP 144/70
[2018-10-13] MEDS: Epoetin Alfa(ESRD on dialysis)10,000 unit/ml vial SUBQ SCH (21:46)
[2018-10-14] VITALS: BP 147/76
[2018-10-14] MEDS: Albuterol/Ipratropium 3ml neb HHN SCH ×3 (03:38→10:44)
[2018-10-14 04:00] VITALS: BP 151/75
[2018-10-14] MEDS: Piperacillin/Tazobactam 2.25 GM in D5W 55 ML IVPB SCH ×3 (06:15→20:40)
--- NOTE | 2018-10-14 07:59 | General Progress Note ---
Assessment/Plan Assessment/Plan S: I am feeling better O:Denies sob. denies chest pain PHYSICAL EXAMINATION:HEAD AND NECK: Atraumatic and normocephalic. CHEST: Lack of breathing in the right side and bronchial breathing sounds in the other side.NEUROLOGIC: The patient is awake, alert, and oriented x3. MUSCULOSKELETAL: Positive for the AV fistula in the left upper arm. No tenderness. No redness.NEUROLOGIC: The patient is delirious. Meds: reviewed and reconciled in the chart ASSESSMENT AND PLAN: 1. Sepsis. 2. Acute encephalopathy. 3. Hypoxemic respiratory failure. 4. Right-sided pleural effusion post drainage 5. End-stage renal disease, on hemodialysis. 6. Anemia. 7. GI and DVT prophylaxis. PLAN OF CARE: Recurrent Effusion , Post Thoracenthesis current pulmonary mgt c/w HD Subjective Allergies: Coded Allergies: No Known Allergies (Unverified , 10/09/18) Objective Last 24 Hour Vital Signs Date Time Temp Pulse Resp B/P (MAP) Pulse Ox O2 Delivery O2 Flow Rate FiO2 10/14/18 06:43 80 16 98 Room Air 10/14/18 06:31 74 16 96 Room Air 10/14/18 04:00 98.7 81 20 151/75 (100) 99 10/14/18 03:38 Room Air 10/14/18 03:38 Room Air 10/14/18 00:00 98.4 80 20 147/76 (99) 98 10/13/18 23:37 78 18 99 Room Air 10/13/18 23:27 78 18 97 Room Air 10/13/18 21:00 Room Air Room Air 10/13/18 20:00 98.9 84 20 144/70 (94) 98 10/13/18 19:42 82 18 99 Room Air 21 10/13/18 19:32 81 18 96 Room Air 21 10/13/18 16:00 97.5 75 18 155/76 (102) 97 10/13/18 15:07 Room Air 21 10/13/18 15:07 Room Air 10/13/18 12:00 98.1 81 18 136/75 (95) 96 10/13/18 11:20 77 18 100 Room Air 10/13/18 11:10 75 17 96 Room Air 10/13/18 09:02 Room Air Room Air 10/13/18 08:00 98.4 73 18 137/69 (91) 96 Intake and Output 10/13/18 10/14/18 18:59 06:59 Intake Total 855 ml Output Total 0 ml Balance 855 ml 0 ml Intake Oral 800 ml IV Total 55 ml Output Urine Total 0 ml # Voids 3 Laboratory Tests 10/13/18 14:18: Prothrombin Time 12.0H, Prothromb Time International Ratio 1.1 10/13/18 14:40: Body Fluid Source Thoracentesis, Body Fluid Volume 24, Body Fluid Appearance Bloody, [place] [id number], Body Fluid Total Nucleated Cells 600, Body Fluid Polynuclear WBCs (%) 2, Body Fluid Mononuclear WBCs (%) 88, Body Fluid Mesothelial Cells (%) 10, Body Fluid Total Protein [Pending], Body Fluid Lactate Dehydrogenase [Pending] 10/13/18 16:20: Hepatitis B Surface Antigen [Pending], Hepatitis B Surface Antibody, Quant [ Pending], Hepatitis C Antibody [Pending] Height (Feet): 5 Height (Inches): 3.00 Weight (Pounds): 135 Cortney Grullon MD Oct 14, 2018 07:59
[2018-10-14 08:00] VITALS: BP 146/71
[2018-10-14] MEDS: Heparin 5000 units/ml inj SUBQ SCH ×2 (08:44→20:41)
--- NOTE | 2018-10-14 10:19 | General Progress Note ---
Assessment/Plan Problem List: (1) Anemia ICD Codes: D64.9 - Anemia, unspecified SNOMED: 833889941 (2) Ascites ICD Codes: R18.8 - Other ascites SNOMED: 975131868 (3) Pleural effusion on right ICD Codes: J90 - Pleural effusion, not elsewhere classified SNOMED: 10036096 (4) Nausea and vomiting in adult patient ICD Codes: R11.2 - Nausea with vomiting, unspecified SNOMED: 80453587 Assessment/Plan Lipase within normal limits Abdominal ultrasound reviewed, noted with small ascites Status post thoracentesis Hepatitis panel negative Anemia workup reviewed OB stool negative recent history of colonoscopy renal diet Monitor H&H, PRN transfusions PPI Zofran as needed, reglan meclizine for vertigo pain mgmt Follow labs Pulmonary care outpatient GI procedures Subjective ROS Limited/Unobtainable: Yes Allergies: Coded Allergies: No Known Allergies (Unverified , 10/09/18) Subjective no abd pain Objective Last 24 Hour Vital Signs Date Time Temp Pulse Resp B/P (MAP) Pulse Ox O2 Delivery O2 Flow Rate FiO2 10/14/18 09:00 Room Air Room Air 10/14/18 08:00 98.6 83 18 146/71 (96) 98 10/14/18 06:43 80 16 98 Room Air 10/14/18 06:31 74 16 96 Room Air 10/14/18 04:00 98.7 81 20 151/75 (100) 99 10/14/18 03:38 Room Air 21 10/14/18 03:38 Room Air 10/14/18 00:00 98.4 80 20 147/76 (99) 98 10/13/18 23:37 78 18 99 Room Air 21 10/13/18 23:27 78 18 97 Room Air 21 10/13/18 21:00 Room Air Room Air 10/13/18 20:00 98.9 84 20 144/70 (94) 98 10/13/18 19:42 82 18 99 Room Air 21 10/13/18 19:32 81 18 96 Room Air 21 10/13/18 16:00 97.5 75 18 155/76 (102) 97 10/13/18 15:07 Room Air 21 10/13/18 15:07 Room Air 21 10/13/18 12:00 98.1 81 18 136/75 (95) 96 10/13/18 11:20 77 18 100 Room Air 21 10/13/18 11:10 75 17 96 Room Air 21 Intake and Output 10/13/18 10/14/18 18:59 06:59 Intake Total 855 ml Output Total 0 ml Balance 855 ml 0 ml Intake Oral 800 ml IV Total 55 ml Output Urine Total 0 ml # Voids 3 Laboratory Tests 10/13/18 14:18: Prothrombin Time 12.0H, Prothromb Time International Ratio 1.1 10/13/18 14:40: Body Fluid Source Thoracentesis, Body Fluid Volume 24, Body Fluid Appearance Bloody, Body Fl[place] [address], Body Fluid Total Nucleated Cells 600, Body Fluid Polynuclear WBCs (%) 2, Body Fluid Mononuclear WBCs (%) 88, Body Fluid Mesothelial Cells (%) 10, Body Fluid Total Protein [Pending], Body Fluid Lactate Dehydrogenase [Pending] 10/13/18 16:20: Hepatitis B Surface Antigen [Pending], Hepatitis B Surface Antibody, Quant [ Pending], Hepatitis C Antibody [Pending] Height (Feet): 5 Height (Inches): 3.00 Weight (Pounds): 135 General Appearance: no apparent distress EENT: normal ENT inspection Neck: supple Cardiovascular: normal rate Respiratory/Chest: decreased breath sounds Abdomen: non tender, soft, distended Extremities: non-tender Slava Jack MD Oct 14, 2018 10:19
[2018-10-14 12:00] VITALS: BP 152/74
--- NOTE | 2018-10-14 12:59 | Nephrology Progress Note ---
Assessment/Plan Problem List: (1) ESRD (end stage renal disease) on dialysis (2) Acute pancreatitis (3) Anemia due to chronic kidney disease (4) Pleural effusion on right Assessment ESRD Tue Marilee Sat - has left arm fistula HTN Anemia Pancreatitis Plan Renal diet HD today 10/14 Phos binders PO Protonix DC IV Fluids IV Reglan PRN per consultants Subjective ROS Limited/Unobtainable: No Objective Objective Last 24 Hour Vital Signs Date Time Temp Pulse Resp B/P (MAP) Pulse Ox O2 Delivery O2 Flow Rate FiO2 10/14/18 12:00 97.6 81 19 152/74 (100) 97 10/14/18 11:25 60 16 Room Air 21 10/14/18 11:15 88 18 100 Room Air 21 10/14/18 10:45 68 16 98 Room Air 21 10/14/18 09:00 Room Air Room Air 10/14/18 08:00 98.6 83 18 146/71 (96) 98 10/14/18 06:43 80 16 98 Room Air 21 10/14/18 06:31 74 16 96 Room Air 21 10/14/18 04:00 98.7 81 20 151/75 (100) 99 10/14/18 03:38 Room Air 21 10/14/18 03:38 Room Air 21 10/14/18 00:00 98.4 80 20 147/76 (99) 98 10/13/18 23:37 78 18 99 Room Air 21 10/13/18 23:27 78 18 97 Room Air 21 10/13/18 21:00 Room Air Room Air 10/13/18 20:00 98.9 84 20 144/70 (94) 98 10/13/18 19:42 82 18 99 Room Air 21 10/13/18 19:32 81 18 96 Room Air 21 10/13/18 16:00 97.5 75 18 155/76 (102) 97 10/13/18 15:07 Room Air 21 10/13/18 15:07 Room Air 21 Intake and Output 10/13/18 10/14/18 19:00 07:00 Intake Total 855 ml Output Total 0 ml Balance 855 ml 0 ml Intake Oral 800 ml IV Total 55 ml Output Urine Total 0 ml # Voids 3 Laboratory Tests 10/13/18 14:18: Prothrombin Time 12.0H, Prothromb Time International Ratio 1.1 10/13/18 14:40: Body Fluid Source Thoracentesis, Body Fluid Volume 24, Body Fluid Appearance Bloody, Body Fluid [place] [address], Body Fluid Total Nucleated Cells 600, Body Fluid Polynuclear WBCs (%) 2, Body Fluid Mononuclear WBCs (%) 88, Body Fluid Mesothelial Cells (%) 10, Body Fluid Total Protein 4.9, Body Fluid Lactate Dehydrogenase [Pending] 10/13/18 16:20: Hepatitis B Surface Antigen [Pending], Hepatitis B Surface Antibody, Quant [ Pending], Hepatitis C Antibody [Pending] Height (Feet): 5 Height (Inches): 3.00 Weight (Pounds): 135 Objective no change Matthieu Gustafson MD Oct 14, 2018 12:58
--- NOTE | 2018-10-14 14:55 | Infectious Diseases Prog Note ---
Assessment/Plan Problems: (1) Aspiration pneumonia of right upper lobe Assessment & Plan: continue zosyn empirically for 8 days , aspiration precaution and keep HOB> 30 degree all the time (2) Pleural effusion on right Assessment & Plan: parapneumonic VS pancreatitis related VS volume overload. S/ P thoracentesis and fluids to be sent for cytology, cell count with DIFF, culture/fungal, PH, amylase, LDH (3) Acute pancreatitis Assessment & Plan: continue supportive care , monitor lipase level (4) Nausea and vomiting in adult patient Assessment & Plan: due to the above, continue supportive care Subjective Constitutional: Reports: no symptoms HEENT: Reports: no symptoms Respiratory: Reports: no symptoms Breasts: Reports: no symptoms Cardiovascular: Reports: no symptoms Gastrointestinal/Abdominal: Reports: no symptoms Genitourinary: Reports: no symptoms Neurologic: Reports: no symptoms Psychiatric: Reports: no symptoms Skin: Reports: no symptoms Endocrine: Reports: no symptoms Hematologic: Reports: no symptoms Musculoskeletal: Reports: no symptoms Allergies: Coded Allergies: No Known Allergies (Unverified , 10/09/18) Subjective had right thoracentesis with removal of 2000 cc of clear fluids from the right pleural space Objective Vital Signs Last 24 Hour Vital Signs Date Time Temp Pulse Resp B/P (MAP) Pulse Ox O2 Delivery O2 Flow Rate FiO2 10/14/18 12:00 97.6 81 19 152/74 (100) 97 10/14/18 11:25 60 16 Room Air 10/14/18 11:15 88 18 100 Room Air 10/14/18 10:45 68 16 98 Room Air 10/14/18 09:00 Room Air Room Air 10/14/18 08:00 98.6 83 18 146/71 (96) 98 10/14/18 06:43 80 16 98 Room Air 10/14/18 06:31 74 16 96 Room Air 10/14/18 04:00 98.7 81 20 151/75 (100) 99 10/14/18 03:38 Room Air 10/14/18 03:38 Room Air 10/14/18 00:00 98.4 80 20 147/76 (99) 98 10/13/18 23:37 78 18 99 Room Air 10/13/18 23:27 78 18 97 Room Air 10/13/18 21:00 Room Air Room Air 10/13/18 20:00 98.9 84 20 144/70 (94) 98 10/13/18 19:42 82 18 99 Room Air 21 10/13/18 19:32 81 18 96 Room Air 21 10/13/18 16:00 97.5 75 18 155/76 (102) 97 10/13/18 15:07 Room Air 21 10/13/18 15:07 Room Air 21 Height (Feet): 5 Height (Inches): 3.00 Weight (Pounds): 135 General Appearance: WD/WN, no acute distress HEENT: normocephalic, atraumatic, anicteric, mucous membranes moist, PERRL Respiratory/Chest: chest wall non-tender, no respiratory distress, no accessory muscle use, decreased breath sounds, crackles/rales Breasts: no masses Cardiovascular: normal peripheral pulses, normal rate, regular rhythm, no gallop/murmur, no JVD Abdomen: normal bowel sounds, soft, non tender, no organomegaly, non distended , no mass, no scars Genitourinary: normal external genitalia Extremities: no cyanosis, no clubbing Skin: no rash, no lesions, no ulcers Neurologic/Psychiatric: registration rep II-XII grossly normal, no motor/sensory deficits, abnormal gait, alert, oriented x 3, responsive Lymphatic: no neck adenopathy, no groin adenopathy Musculoskeletal: normal muscle bulk, no effusion Laboratory Tests Test 10/13/18 16:20 Hepatitis B Surface Antigen Pending Hepatitis B Surface Antibody, Quant Pending Hepatitis C Antibody Pending Current Medications Medications (Trade) Dose Ordered Sig/Anish Route PRN Reason Start Time Stop Time Status Last Admin Dose Admin Epoetin Isidro (Epoetin Isidro(ESRD on dialysis)) 10,000 unit MON-WED-TUE SUBQ 10/11/18 21:00 11/10/18 20:59 10/13/18 21:46 Heparin Sodium (Porcine) (Heparin 5000 units/ml) 5,000 units EVERY 12 HOURS SUBQ 10/11/18 21:00 11/10/18 08:59 10/14/18 08:44 Hydralazine HCl (Apresoline) 10 mg Q4H PRN IV bp over 160 syst 10/11/18 13:04 11/08/18 13:03 Hydromorphone HCl (Dilaudid) 0.5 mg Q4H PRN IVP For Pain 10/11/18 13:05 10/16/18 13:04 Iopamidol (Isovue-300 100ml) 100 ml NOW PRN INJ Radiology Procedure 10/13/18 16:45 10/15/18 16:42 Meclizine HCl (Antivert) 25 mg Q6H PRN ORAL for dizziness 10/12/18 10:45 11/11/18 10:44 Metoclopramide HCl (Reglan) 10 mg Q6H PRN IVP Nausea & Vomiting 10/11/18 13:05 11/08/18 13:04 10/13/18 08:10 Pantoprazole (Protonix) 40 mg EVERY 12 HOURS ORAL 10/11/18 21:00 11/10/18 20:59 10/14/18 08:43 Piperacillin Sod/ Tazobactam Sod 2.25 gm/Dextrose 55 ml @ 110 mls/hr Q8HR IVPB 10/11/18 14:00 10/18/18 13:59 10/14/18 13:49 Sevelamer Carbonate (Renvela) 1,600 mg THREE TIMES A DAY ORAL 10/13/18 09:00 11/12/18 08:59 10/14/18 13:48 Jeff Mendez M.D. Oct 14, 2018 14:55
[2018-10-14] MEDS ORDERED: Tubing IV Secondary IV ONE (15:57)
[2018-10-14 16:00] VITALS: BP 143/81
--- NOTE | 2018-10-14 17:33 | Pulmonology Progress Note ---
Assessment/Plan Assessment/Plan Pulmonary Progress Note Assessment/Plan Problems: (1) Pleural effusion on right (2) Acute pancreatitis (3) Nausea and vomiting in adult patient (4) Aspiration pneumonia of right upper lobe (5) Ascites (6) Anemia (7) ESRD (end stage renal disease) on dialysis (8) Anemia due to chronic kidney disease Assessment/Plan ASSESSMENT: The patient is a 58-year-old male with end-stage renal disease, on dialysis Tuesday, , Tuesday, presenting with abdominal pain and nausea secondary to pancreatitis, noted to have a large right-sided pleural effusion with subsequent compressive atelectasis and possible pneumonia. PROBLEM LIST: 1. Large right-sided effusion. 2. Compressive atelectasis. 3. Ground-glass opacity of the right lung, atelectasis versus infiltrate. 4. Left lower lobe pulmonary nodule. 5. Acute pancreatitis. 6. End-stage renal disease, on dialysis. TREATMENT PLAN: 1. Optimize pulmonary hygiene/mobilize as tolerated. 2. Monitor effusion 3. Observe of per ID. 4. Pleural effusion likely 2/2 starling forces and possible para-pneumonic component but prior CT is of poor quality to rule out an associated mass especially given the large component of compressive atelectasis. Will order a repeat THORACENTESIS and check a POST-THORACENTESIS CONTRAST CT. Will also repeat pleural fluid cytology. 5. Follow up GI recs, pain control/supportive care 6. Monitor volumes and renal function. HD per renal with UF as able 7. DVT prophylaxis: Hep SQ 8. Continue [id number] and p.r.n. bronchodilators. Subjective Allergies: Coded Allergies: No Known Allergies (Unverified , 10/09/18) Subjective AFVSS on RA CXR with recurrent large R sided effusion No F/C/CP/SOB/N/V/D/C/abd pain/urinary co Objective Vital Signs Noted General Appearance: no acute distress, cachetic HEENT: normocephalic, atraumatic, anicteric, mucous membranes moist Respiratory/Chest: chest wall non-tender, lungs clear - but decreased @ R base , no respiratory distress, no accessory muscle use Cardiovascular: normal peripheral pulses, normal rate, regular rhythm Abdomen: normal bowel sounds, soft, non tender, no organomegaly, non distended , no mass Extremities: no cyanosis, no clubbing, no edema Microbiology Date/Time Source Procedure Growth Status 10/11/18 04:15 Blood Blood Culture - Preliminary NO GROWTH AFTER 48 HOURS Resulted 10/11/18 04:10 Blood Blood Culture - Preliminary NO GROWTH AFTER 48 HOURS Resulted Laboratory Tests 10/13/18 05:45: White Blood Count 6.3, Red Blood Count 2.93L, Hemoglobin 8.8L, Hematocrit 26.6L , Mean Corpuscular Volume 91, Mean Corpuscular Hemoglobin 29.9, Mean Corpuscular Hemoglobin Concent 32.9, Red Cell Distribution Width 13.4, Platelet Count 231, Mean Platelet Volume 5.3L, Neutrophils (%) (Auto) 66.2, Lymphocytes ( %) (Auto) 18.9L, Monocytes (%) (Auto) 11.1H, Eosinophils (%) (Auto) 3.0, Basophils (%) (Auto) 0.8, Sodium Level 139, Potassium Level 3.6, Chloride Level 98, Carbon Dioxide Level 31, Anion Gap 10, Blood Urea Nitrogen 37H, Creatinine 6.6H, Estimat Glomerular Filtration Rate 8.7, Glucose Level 109H, Calcium Level 8.6, Phosphorus Level 7.3H, Magnesium Level 2.1, Total Bilirubin 0.5, Aspartate Amino Transf (AST/SGOT) 15, Alanine Aminotransferase (ALT/SGPT) 14, Alkaline Phosphatase 82, Total Protein 7.6, Albumin 2.8L, Globulin 4.8, Albumin/Globulin Ratio 0.6L Current Medications Medications (Trade) Dose Ordered Sig/Anish Route PRN Reason Start Time Stop Time Status Last Admin Dose Admin Albuterol/ Ipratropium (Albuterol/ Ipratropium) 3 ml Q4HRT HHN 10/11/18 15:00 10/14/18 10:59 10/13/18 11:10 Epoetin Isidro (Epoetin Isidro(ESRD on dialysis)) 10,000 unit TUE-TUE-TUE SUBQ 10/11/18 21:00 11/10/18 20:59 10/11/18 22:01 Heparin Sodium (Porcine) (Heparin 5000 units/ml) 5,000 units EVERY 12 HOURS SUBQ 10/11/18 21:00 11/10/18 08:59 10/13/18 08:10 Hydralazine HCl (Apresoline) 10 mg Q4H PRN IV bp over 160 syst 10/11/18 13:04 11/08/18 13:03 Hydromorphone HCl (Dilaudid) 0.5 mg Q4H PRN IVP For Pain 10/11/18 13:05 10/16/18 13:04 Meclizine HCl (Antivert) 25 mg Q6H PRN ORAL for dizziness 10/12/18 10:45 11/11/18 10:44 Metoclopramide HCl (Reglan) 10 mg Q6H PRN IVP Nausea & Vomiting 10/11/18 13:05 11/08/18 13:04 10/13/18 08:10 Pantoprazole (Protonix) 40 mg EVERY 12 HOURS ORAL 10/11/18 21:00 11/10/18 20:59 10/13/18 08:10 Piperacillin Sod/ Tazobactam Sod 2.25 gm/Dextrose 55 ml @ 110 mls/hr Q8HR IVPB 10/11/18 14:00 10/14/18 08:59 10/13/18 13:04 Sevelamer Carbonate (Renvela) 1,600 mg THREE TIMES A DAY ORAL 10/13/18 09:00 11/12/18 08:59 10/13/18 13:04 Subjective ROS Limited/Unobtainable: No Allergies: Coded Allergies: No Known Allergies (Unverified , 10/09/18) Objective Last 24 Hour Vital Signs Date Time Temp Pulse Resp B/P (MAP) Pulse Ox O2 Delivery O2 Flow Rate FiO2 10/14/18 16:00 98.7 84 18 143/81 (101) 99 10/14/18 12:00 97.6 81 19 152/74 (100) 97 10/14/18 11:25 60 16 Room Air 21 10/14/18 11:15 88 18 100 Room Air 21 10/14/18 10:45 68 16 98 Room Air 21 10/14/18 09:00 Room Air Room Air 10/14/18 08:00 98.6 83 18 146/71 (96) 98 10/14/18 06:43 80 16 98 Room Air 21 10/14/18 06:31 74 16 96 Room Air 21 10/14/18 04:00 98.7 81 20 151/75 (100) 99 10/14/18 03:38 Room Air 21 10/14/18 03:38 Room Air 21 10/14/18 00:00 98.4 80 20 147/76 (99) 98 10/13/18 23:37 78 18 99 Room Air 21 10/13/18 23:27 78 18 97 Room Air 21 10/13/18 21:00 Room Air Room Air 10/13/18 20:00 98.9 84 20 144/70 (94) 98 10/13/18 19:42 82 18 99 Room Air 21 10/13/18 19:32 81 18 96 Room Air 21 Intake and Output 10/13/18 10/14/18 19:00 07:00 Intake Total 855 ml Output Total 0 ml Balance 855 ml 0 ml Intake Oral 800 ml IV Total 55 ml Output Urine Total 0 ml # Voids 3 Current Medications Medications (Trade) Dose Ordered Sig/Anish Route PRN Reason Start Time Stop Time Status Last Admin Dose Admin Epoetin Isidro (Epoetin Isidro(ESRD on dialysis)) 10,000 unit TUE-TUE-TUE SUBQ 10/11/18 21:00 11/10/18 20:59 10/13/18 21:46 Heparin Sodium (Porcine) (Heparin 5000 units/ml) 5,000 units EVERY 12 HOURS SUBQ 10/11/18 21:00 11/10/18 08:59 10/14/18 08:44 Hydralazine HCl (Apresoline) 10 mg Q4H PRN IV bp over 160 syst 10/11/18 13:04 11/08/18 13:03 Hydromorphone HCl (Dilaudid) 0.5 mg Q4H PRN IVP For Pain 10/11/18 13:05 10/16/18 13:04 Iopamidol (Isovue-300 100ml) 100 ml NOW PRN INJ Radiology Procedure 10/13/18 16:45 10/15/18 16:42 Meclizine HCl (Antivert) 25 mg Q6H PRN ORAL for dizziness 10/12/18 10:45 11/11/18 10:44 Metoclopramide HCl (Reglan) 10 mg Q6H PRN IVP Nausea & Vomiting 10/11/18 13:05 11/08/18 13:04 10/13/18 08:10 Pantoprazole (Protonix) 40 mg EVERY 12 HOURS ORAL 10/11/18 21:00 11/10/18 20:59 10/14/18 08:43 Piperacillin Sod/ Tazobactam Sod 2.25 gm/Dextrose 55 ml @ 110 mls/hr Q8HR IVPB 10/11/18 14:00 10/18/18 13:59 10/14/18 13:49 Sevelamer Carbonate (Renvela) 1,600 mg THREE TIMES A DAY ORAL 10/13/18 09:00 11/12/18 08:59 10/14/18 13:48 Mukul France MD Oct 14, 2018 17:33
[2018-10-14 20:05] VITALS: BP 143/68
[2018-10-15] VITALS: BP 142/70
[2018-10-15 04:00] VITALS: BP 138/82
[2018-10-15] MEDS: Piperacillin/Tazobactam 2.25 GM in D5W 55 ML IVPB SCH ×3 (04:52→20:52)
[2018-10-15 08:00] VITALS: BP 144/67
[2018-10-15] MEDS: Heparin 5000 units/ml inj SUBQ SCH ×2 (08:21→20:53)
--- NOTE | 2018-10-15 10:43 | General Progress Note ---
Assessment/Plan Problem List: (1) Anemia ICD Codes: D64.9 - Anemia, unspecified SNOMED: 421624783 (2) Ascites ICD Codes: R18.8 - Other ascites SNOMED: 559113293 (3) Pleural effusion on right ICD Codes: J90 - Pleural effusion, not elsewhere classified SNOMED: 78819260 (4) Nausea and vomiting in adult patient ICD Codes: R11.2 - Nausea with vomiting, unspecified SNOMED: 75052263 Assessment/Plan Lipase within normal limits Abdominal ultrasound reviewed, noted with small ascites Status post thoracentesis Hepatitis panel negative Anemia workup reviewed OB stool negative recent history of colonoscopy renal diet Monitor H&H, PRN transfusions PPI Zofran as needed, reglan meclizine for vertigo pain mgmt Follow labs Pulmonary care outpatient GI procedures Subjective ROS Limited/Unobtainable: Yes Allergies: Coded Allergies: No Known Allergies (Unverified , 10/09/18) Subjective no abd pain Objective Last 24 Hour Vital Signs Date Time Temp Pulse Resp B/P (MAP) Pulse Ox O2 Delivery O2 Flow Rate FiO2 10/15/18 09:00 Room Air Room Air 10/15/18 08:00 99.0 78 18 144/67 (92) 99 10/15/18 04:00 98.1 84 17 138/82 (100) 96 10/15/18 00:00 98.4 79 18 142/70 (94) 96 10/14/18 20:08 Room Air Room Air 10/14/18 20:05 98.7 84 18 143/68 (93) 97 10/14/18 19:55 Room Air 21 10/14/18 19:55 Room Air 21 10/14/18 19:55 18 16 Room Air 21 10/14/18 16:00 98.7 84 18 143/81 (101) 99 10/14/18 12:00 97.6 81 19 152/74 (100) 97 10/14/18 11:25 60 16 Room Air 21 10/14/18 11:15 88 18 100 Room Air 21 10/14/18 10:45 68 16 98 Room Air 21 Intake and Output 10/14/18 10/15/18 18:59 06:59 Intake Total 790 ml 110 ml Output Total 400 ml Balance 790 ml -290 ml Intake Oral 680 ml IV Total 110 ml 110 ml Output Urine Total 400 ml # Bowel Movements 1 6 Height (Feet): 5 Height (Inches): 3.00 Weight (Pounds): 132 General Appearance: alert EENT: normal ENT inspection Neck: supple Cardiovascular: normal rate Respiratory/Chest: decreased breath sounds Abdomen: normal bowel sounds, non tender, soft Extremities: non-tender Slava Jack MD Oct 15, 2018 10:43
--- NOTE | 2018-10-15 11:08 | General Progress Note ---
Assessment/Plan Assessment/Plan S: I am feeling better O:Denies sob. denies chest pain PHYSICAL EXAMINATION:HEAD AND NECK: Atraumatic and normocephalic. CHEST: Lack of breathing in the right side and bronchial breathing sounds in the other side.NEUROLOGIC: The patient is awake, alert, and oriented x3. MUSCULOSKELETAL: Positive for the AV fistula in the left upper arm. No tenderness. No redness.NEUROLOGIC: The patient is delirious. Meds: reviewed and reconciled in the chart ASSESSMENT AND PLAN: 1. Sepsis. 2. Acute encephalopathy. 3. Hypoxemic respiratory failure. 4. Right-sided pleural effusion post drainage 5. End-stage renal disease, on hemodialysis. 6. Anemia. 7. GI and DVT prophylaxis. PLAN OF CARE: Recurrent Effusion , Post Thoracentesis current pulmonary mgt c/w HD finding stable by imaging and clinically Subjective Allergies: Coded Allergies: No Known Allergies (Unverified , 10/09/18) Objective Last 24 Hour Vital Signs Date Time Temp Pulse Resp B/P (MAP) Pulse Ox O2 Delivery O2 Flow Rate FiO2 10/15/18 09:00 Room Air Room Air 10/15/18 08:00 99.0 78 18 144/67 (92) 99 10/15/18 04:00 98.1 84 17 138/82 (100) 96 10/15/18 00:00 98.4 79 18 142/70 (94) 96 10/14/18 20:08 Room Air Room Air 10/14/18 20:05 98.7 84 18 143/68 (93) 97 10/14/18 19:55 Room Air 21 10/14/18 19:55 Room Air 21 10/14/18 19:55 18 16 Room Air 21 10/14/18 16:00 98.7 84 18 143/81 (101) 99 10/14/18 12:00 97.6 81 19 152/74 (100) 97 10/14/18 11:25 60 16 Room Air 21 10/14/18 11:15 88 18 100 Room Air 21 Intake and Output 10/14/18 10/15/18 18:59 06:59 Intake Total 790 ml 110 ml Output Total 400 ml Balance 790 ml -290 ml Intake Oral 680 ml IV Total 110 ml 110 ml Output Urine Total 400 ml # Bowel Movements 1 6 Height (Feet): 5 Height (Inches): 3.00 Weight (Pounds): 132 Cortney Grullon MD Oct 15, 2018 11:08
--- NOTE | 2018-10-15 11:34 | Nephrology Progress Note ---
Assessment/Plan Problem List: (1) ESRD (end stage renal disease) on dialysis (2) Acute pancreatitis (3) Anemia due to chronic kidney disease (4) Pleural effusion on right Assessment ESRD Tue Marilee Sat - has left arm fistula HTN Anemia Pancreatitis Plan Renal diet HD today 10/14 next 10/17 Phos binders PO Protonix DC IV Fluids IV Reglan PRN per consultants Subjective ROS Limited/Unobtainable: No Constitutional: Reports: malaise Objective Objective Last 24 Hour Vital Signs Date Time Temp Pulse Resp B/P (MAP) Pulse Ox O2 Delivery O2 Flow Rate FiO2 10/15/18 09:00 Room Air Room Air 10/15/18 08:00 99.0 78 18 144/67 (92) 99 10/15/18 04:00 98.1 84 17 138/82 (100) 96 10/15/18 00:00 98.4 79 18 142/70 (94) 96 10/14/18 20:08 Room Air Room Air 10/14/18 20:05 98.7 84 18 143/68 (93) 97 10/14/18 19:55 Room Air 21 10/14/18 19:55 Room Air 21 10/14/18 19:55 18 16 Room Air 21 10/14/18 16:00 98.7 84 18 143/81 (101) 99 10/14/18 12:00 97.6 81 19 152/74 (100) 97 Intake and Output 10/14/18 10/15/18 18:59 06:59 Intake Total 790 ml 110 ml Output Total 400 ml Balance 790 ml -290 ml Intake Oral 680 ml IV Total 110 ml 110 ml Output Urine Total 400 ml # Bowel Movements 1 6 Height (Feet): 5 Height (Inches): 3.00 Weight (Pounds): 132 General Appearance: no apparent distress Objective no change Matthieu Gustafson MD Oct 15, 2018 11:34
[2018-10-15 12:00] VITALS: BP 143/67
[2018-10-15 16:00] VITALS: BP 133/79
--- NOTE | 2018-10-15 16:14 | Infectious Diseases Prog Note ---
Assessment/Plan Problems: (1) Aspiration pneumonia of right upper lobe Assessment & Plan: continue zosyn empirically for 8 days , aspiration precaution and keep HOB> 30 degree all the time (2) Pleural effusion on right Assessment & Plan: parapneumonic VS pancreatitis related VS volume overload. S/ P thoracentesis and fluids to be sent for cytology, cell count with DIFF, culture/fungal, PH, amylase, LDH (3) Acute pancreatitis Assessment & Plan: continue supportive care , monitor lipase level (4) Nausea and vomiting in adult patient Assessment & Plan: due to the above, continue supportive care Subjective Constitutional: Reports: no symptoms HEENT: Reports: no symptoms Respiratory: Reports: no symptoms Breasts: Reports: no symptoms Cardiovascular: Reports: no symptoms Gastrointestinal/Abdominal: Reports: no symptoms Genitourinary: Reports: no symptoms Neurologic: Reports: no symptoms Psychiatric: Reports: no symptoms Skin: Reports: no symptoms Endocrine: Reports: no symptoms Hematologic: Reports: no symptoms Musculoskeletal: Reports: no symptoms Allergies: Coded Allergies: No Known Allergies (Unverified , 10/09/18) Subjective had right thoracentesis with removal of 2000 cc of clear fluids from the right pleural space Objective Vital Signs Last 24 Hour Vital Signs Date Time Temp Pulse Resp B/P (MAP) Pulse Ox O2 Delivery O2 Flow Rate FiO2 10/15/18 16:00 98.2 77 20 133/79 (97) 97 10/15/18 12:00 99.0 78 18 143/67 (92) 98 10/15/18 09:00 Room Air Room Air 10/15/18 08:00 99.0 78 18 144/67 (92) 99 10/15/18 04:00 98.1 84 17 138/82 (100) 96 10/15/18 00:00 98.4 79 18 142/70 (94) 96 10/14/18 20:08 Room Air Room Air 10/14/18 20:05 98.7 84 18 143/68 (93) 97 10/14/18 19:55 Room Air 21 10/14/18 19:55 Room Air 21 10/14/18 19:55 18 16 Room Air 21 Height (Feet): 5 Height (Inches): 3.00 Weight (Pounds): 132 General Appearance: WD/WN, no acute distress HEENT: normocephalic, atraumatic, anicteric, mucous membranes moist, PERRL Respiratory/Chest: chest wall non-tender, lungs clear, normal breath sounds, no respiratory distress, no accessory muscle use Cardiovascular: normal peripheral pulses, normal rate, regular rhythm, no gallop/murmur, no JVD Abdomen: normal bowel sounds, soft, non tender, no organomegaly, non distended , no mass, no scars Genitourinary: normal external genitalia Extremities: no cyanosis, no clubbing Skin: no rash, no lesions, no ulcers 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, no motor/sensory deficits, abnormal gait, alert, oriented x 3 Lymphatic: no neck adenopathy, no groin adenopathy Musculoskeletal: normal muscle bulk, no effusion Microbiology Date/Time Source Procedure Growth Status 10/15/18 00:15 Stool Clostridium difficile Toxin Assay - Final Complete Current Medications Medications (Trade) Dose Ordered Sig/Anish Route PRN Reason Start Time Stop Time Status Last Admin Dose Admin Epoetin Isidro (Epoetin Isidro(ESRD on dialysis)) 10,000 unit TUE-TUE-TUE SUBQ 10/11/18 21:00 11/10/18 20:59 10/13/18 21:46 Heparin Sodium (Porcine) (Heparin 5000 units/ml) 5,000 units EVERY 12 HOURS SUBQ 10/11/18 21:00 11/10/18 08:59 10/15/18 08:21 Hydralazine HCl (Apresoline) 10 mg Q4H PRN IV bp over 160 syst 10/11/18 13:04 11/08/18 13:03 Hydromorphone HCl (Dilaudid) 0.5 mg Q4H PRN IVP For Pain 10/11/18 13:05 10/16/18 13:04 Iopamidol (Isovue-300 100ml) 100 ml NOW PRN INJ Radiology Procedure 10/13/18 16:45 10/15/18 16:42 Levothyroxine Sodium (Synthroid) 25 mcg DAILY@0630 ORAL 10/16/18 06:30 11/15/18 06:29 Meclizine HCl (Antivert) 25 mg Q6H PRN ORAL for dizziness 10/12/18 10:45 11/11/18 10:44 Metoclopramide HCl (Reglan) 10 mg Q6H PRN IVP Nausea & Vomiting 10/11/18 13:05 11/08/18 13:04 10/13/18 08:10 Pantoprazole (Protonix) 40 mg EVERY 12 HOURS ORAL 10/11/18 21:00 11/10/18 20:59 10/15/18 08:19 Piperacillin Sod/ Tazobactam Sod 2.25 gm/Dextrose 55 ml @ 110 mls/hr Q8HR IVPB 10/11/18 14:00 10/18/18 13:59 10/15/18 13:40 Sevelamer Carbonate (Renvela) 1,600 mg THREE TIMES A DAY ORAL 10/13/18 09:00 11/12/18 08:59 10/15/18 13:39 Jeff Mendez M.D. Oct 15, 2018 16:14
--- NOTE | 2018-10-15 18:38 | Pulmonology Progress Note ---
Assessment/Plan Assessment/Plan Pulmonary Progress Note Assessment/Plan Problems: (1) Pleural effusion on right (2) Acute pancreatitis (3) Nausea and vomiting in adult patient (4) Aspiration pneumonia of right upper lobe (5) Ascites (6) Anemia (7) ESRD (end stage renal disease) on dialysis (8) Anemia due to chronic kidney disease Assessment/Plan ASSESSMENT: The patient is a 58-year-old male with end-stage renal disease, on dialysis Tuesday, , Tuesday, presenting with abdominal pain and nausea secondary to pancreatitis, noted to have a large right-sided pleural effusion with subsequent compressive atelectasis and possible pneumonia. PROBLEM LIST: 1. Large right-sided effusion. 2. Compressive atelectasis. 3. Ground-glass opacity of the right lung, atelectasis versus infiltrate. 4. Left lower lobe pulmonary nodule. 5. Acute pancreatitis. 6. End-stage renal disease, on dialysis. TREATMENT PLAN: 1. Optimize pulmonary hygiene/mobilize as tolerated. 2. Monitor effusion 3. Observe of per ID. 4. Pleural effusion likely 2/2 starling forces and possible para-pneumonic component but prior CT is of poor quality to rule out an associated mass especially given the large component of compressive atelectasis. Will order a repeat THORACENTESIS and check a POST-THORACENTESIS CONTRAST CT. Will also repeat pleural fluid cytology. 5. Follow up GI recs, pain control/supportive care 6. Monitor volumes and renal function. HD per renal with UF as able 7. DVT prophylaxis: Hep SQ 8. Continue [id number] and p.r.n. bronchodilators. Subjective Allergies: Coded Allergies: No Known Allergies (Unverified , 10/09/18) Subjective AFVSS on RA CXR with recurrent large R sided effusion No F/C/CP/SOB/N/V/D/C/abd pain/urinary co Objective Vital Signs Noted General Appearance: no acute distress, cachetic HEENT: normocephalic, atraumatic, anicteric, mucous membranes moist Respiratory/Chest: chest wall non-tender, lungs clear - but decreased @ R base , no respiratory distress, no accessory muscle use Cardiovascular: normal peripheral pulses, normal rate, regular rhythm Abdomen: normal bowel sounds, soft, non tender, no organomegaly, non distended , no mass Extremities: no cyanosis, no clubbing, no edema CT Chest IMPRESSION: Ground glass opacities in the right lower lobe with minimal components in the right middle and upper lobes as well. Could be asymmetric edema. There is a broader differential. Microbiology Date/Time Source Procedure Growth Status 10/11/18 04:15 Blood Blood Culture - Preliminary NO GROWTH AFTER 48 HOURS Resulted 10/11/18 04:10 Blood Blood Culture - Preliminary NO GROWTH AFTER 48 HOURS Resulted Laboratory Tests 10/13/18 05:45: White Blood Count 6.3, Red Blood Count 2.93L, Hemoglobin 8.8L, Hematocrit 26.6L , Mean Corpuscular Volume 91, Mean Corpuscular Hemoglobin 29.9, Mean Corpuscular Hemoglobin Concent 32.9, Red Cell Distribution Width 13.4, Platelet Count 231, Mean Platelet Volume 5.3L, Neutrophils (%) (Auto) 66.2, Lymphocytes ( %) (Auto) 18.9L, Monocytes (%) (Auto) 11.1H, Eosinophils (%) (Auto) 3.0, Basophils (%) (Auto) 0.8, Sodium Level 139, Potassium Level 3.6, Chloride Level 98, Carbon Dioxide Level 31, Anion Gap 10, Blood Urea Nitrogen 37H, Creatinine 6.6H, Estimat Glomerular Filtration Rate 8.7, Glucose Level 109H, Calcium Level 8.6, Phosphorus Level 7.3H, Magnesium Level 2.1, Total Bilirubin 0.5, Aspartate Amino Transf (AST/SGOT) 15, Alanine Aminotransferase (ALT/SGPT) 14, Alkaline Phosphatase 82, Total Protein 7.6, Albumin 2.8L, Globulin 4.8, Albumin/Globulin Ratio 0.6L Current Medications Medications (Trade) Dose Ordered Sig/Anish Route PRN Reason Start Time Stop Time Status Last Admin Dose Admin Albuterol/ Ipratropium (Albuterol/ Ipratropium) 3 ml Q4HRT HHN 10/11/18 15:00 10/14/18 10:59 10/13/18 11:10 Epoetin Isidro (Epoetin Isidro(ESRD on dialysis)) 10,000 unit MON-WED-FRI SUBQ 10/11/18 21:00 11/10/18 20:59 10/11/18 22:01 Heparin Sodium (Porcine) (Heparin 5000 units/ml) 5,000 units EVERY 12 HOURS SUBQ 10/11/18 21:00 5/10/19 08:59 10/13/18 08:10 Hydralazine HCl (Apresoline) 10 mg Q4H PRN IV bp over 160 syst 10/11/18 13:04 11/08/18 13:03 Hydromorphone HCl (Dilaudid) 0.5 mg Q4H PRN IVP For Pain 10/11/18 13:05 10/16/18 13:04 Meclizine HCl (Antivert) 25 mg Q6H PRN ORAL for dizziness 10/12/18 10:45 11/11/18 10:44 Metoclopramide HCl (Reglan) 10 mg Q6H PRN IVP Nausea & Vomiting 10/11/18 13:05 11/08/18 13:04 10/13/18 08:10 Pantoprazole (Protonix) 40 mg EVERY 12 HOURS ORAL 10/11/18 21:00 11/10/18 20:59 10/13/18 08:10 Piperacillin Sod/ Tazobactam Sod 2.25 gm/Dextrose 55 ml @ 110 mls/hr Q8HR IVPB 10/11/18 14:00 10/14/18 08:59 10/13/18 13:04 Sevelamer Carbonate (Renvela) 1,600 mg THREE TIMES A DAY ORAL 10/13/18 09:00 11/12/18 08:59 10/13/18 13:04 Subjective ROS Limited/Unobtainable: No Allergies: Coded Allergies: No Known Allergies (Unverified , 10/09/18) Objective Last 24 Hour Vital Signs Date Time Temp Pulse Resp B/P (MAP) Pulse Ox O2 Delivery O2 Flow Rate FiO2 10/15/18 16:00 98.2 77 20 133/79 (97) 97 10/15/18 12:00 99.0 78 18 143/67 (92) 98 10/15/18 09:00 Room Air Room Air 10/15/18 08:00 99.0 78 18 144/67 (92) 99 10/15/18 04:00 98.1 84 17 138/82 (100) 96 10/15/18 00:00 98.4 79 18 142/70 (94) 96 10/14/18 20:08 Room Air Room Air 10/14/18 20:05 98.7 84 18 143/68 (93) 97 10/14/18 19:55 Room Air 21 10/14/18 19:55 Room Air 21 10/14/18 19:55 18 16 Room Air 21 Intake and Output 10/14/18 10/15/18 19:00 07:00 Intake Total 790 ml 110 ml Output Total 400 ml Balance 790 ml -290 ml Intake Oral 680 ml IV Total 110 ml 110 ml Output Urine Total 400 ml # Bowel Movements 1 6 Microbiology Date/Time Source Procedure Growth Status 10/15/18 00:15 Stool Clostridium difficile Toxin Assay - Final Complete Current Medications Medications (Trade) Dose Ordered Sig/Anish Route PRN Reason Start Time Stop Time Status Last Admin Dose Admin Epoetin Isidro (Epoetin Isidro(ESRD on dialysis)) 10,000 unit MON-WED-TUE SUBQ 10/11/18 21:00 11/10/18 20:59 10/13/18 21:46 Heparin Sodium (Porcine) (Heparin 5000 units/ml) 5,000 units EVERY 12 HOURS SUBQ 10/11/18 21:00 11/10/18 08:59 10/15/18 08:21 Hydralazine HCl (Apresoline) 10 mg Q4H PRN IV bp over 160 syst 10/11/18 13:04 11/08/18 13:03 Hydromorphone HCl (Dilaudid) 0.5 mg Q4H PRN IVP For Pain 10/11/18 13:05 10/16/18 13:04 Levothyroxine Sodium (Synthroid) 25 mcg DAILY@0630 ORAL 10/16/18 06:30 11/15/18 06:29 Meclizine HCl (Antivert) 25 mg Q6H PRN ORAL for dizziness 10/12/18 10:45 11/11/18 10:44 Metoclopramide HCl (Reglan) 10 mg Q6H PRN IVP Nausea & Vomiting 10/11/18 13:05 11/08/18 13:04 10/13/18 08:10 Pantoprazole (Protonix) 40 mg EVERY 12 HOURS ORAL 10/11/18 21:00 11/10/18 20:59 10/15/18 08:19 Piperacillin Sod/ Tazobactam Sod 2.25 gm/Dextrose 55 ml @ 110 mls/hr Q8HR IVPB 10/11/18 14:00 10/18/18 13:59 10/15/18 13:40 Sevelamer Carbonate (Renvela) 1,600 mg THREE TIMES A DAY ORAL 10/13/18 09:00 11/12/18 08:59 10/15/18 18:06 Mukul France MD Oct 15, 2018 18:38
[2018-10-15 20:00] VITALS: BP 146/70
[2018-10-16] VITALS: BP 144/71
[2018-10-16 04:08] VITALS: BP 130/60
[2018-10-16] MEDS: Piperacillin/Tazobactam 2.25 GM in D5W 55 ML IVPB SCH ×3 (05:40→20:47)
[2018-10-16] MEDS: Levothyroxine 25mcg tab ORAL SCH (05:40)
[2018-10-16] MEDS ORDERED: Levothyroxine 25mcg tab ORAL SCH (06:30)
[2018-10-16 08:00] VITALS: BP 135/66
[2018-10-16] MEDS: Heparin 5000 units/ml inj SUBQ SCH ×2 (08:42→20:49)
--- NOTE | 2018-10-16 10:41 | GI Progress Note ---
Assessment/Plan Problems: (1) Ascites ICD Codes: R18.8 - Other ascites SNOMED: 435889592 (2) Anemia ICD Codes: D64.9 - Anemia, unspecified SNOMED: 882039835 (3) Nausea and vomiting in adult patient ICD Codes: R11.2 - Nausea with vomiting, unspecified SNOMED: 24299498 (4) Aspiration pneumonia of right upper lobe ICD Codes: J69.0 - Pneumonitis due to inhalation of food and vomit SNOMED: 810281804, 021177910 (5) Pleural effusion on right ICD Codes: J90 - Pleural effusion, not elsewhere classified SNOMED: 77876378 (6) Acute pancreatitis ICD Codes: K85.90 - Acute pancreatitis without necrosis or infection, unspecified SNOMED: 434150611 Status: stable Status Narrative Discussed with Dr. Jack. Assessment/Plan Lipase within normal limits Abdominal ultrasound reviewed, noted with small ascites Status post thoracentesis Hepatitis panel negative Anemia workup reviewed OB stool negative recent history of colonoscopy renal diet Monitor H&H, PRN transfusions PPI Zofran as needed, reglan meclizine for vertigo pain mgmt Follow labs Pulmonary care outpatient GI procedures The patient was seen and examined at bedside and all new and available data was reviewed in the patients chart. I agree with the above findings, impression and plan. (Patient seen earlier today. Signature stamp does not reflect patient encounter time.). - Slava Jack MD Subjective Gastrointestinal/Abdominal: Reports: no symptoms Objective Last 24 Hour Vital Signs Date Time Temp Pulse Resp B/P (MAP) Pulse Ox O2 Delivery O2 Flow Rate FiO2 10/16/18 09:59 Room Air Room Air 10/16/18 08:00 98.0 76 18 135/66 (89) 95 10/16/18 04:08 98.2 76 18 130/60 (83) 96 10/16/18 00:00 98.1 79 17 144/71 (95) 97 10/15/18 20:11 Room Air Room Air 10/15/18 20:00 97.8 78 18 146/70 (95) 97 10/15/18 16:00 98.2 77 20 133/79 (97) 97 10/15/18 12:00 99.0 78 18 143/67 (92) 98 Intake and Output 10/15/18 10/16/18 19:00 07:00 Intake Total 510 ml 470 ml Balance 510 ml 470 ml Intake Oral 400 ml 360 ml IV Total 110 ml 110 ml # Voids 2 2 # Bowel Movements 2 Height (Feet): 5 Height (Inches): 3.00 Weight (Pounds): 132 General Appearance: WD/WN, no apparent distress, alert Cardiovascular: normal rate Respiratory/Chest: normal breath sounds, no respiratory distress Abdominal Exam: normal bowel sounds, non tender, soft Extremities: normal range of motion, non-tender Kevin Soriano NP Oct 16, 2018 10:41
[2018-10-16 12:00] VITALS: BP 139/81
--- NOTE | 2018-10-16 13:12 | General Progress Note ---
Assessment/Plan Assessment/Plan S: I am feeling better O:Denies sob. denies chest pain PHYSICAL EXAMINATION:HEAD AND NECK: Atraumatic and normocephalic. CHEST: Lack of breathing in the right side and bronchial breathing sounds in the other side.NEUROLOGIC: The patient is awake, alert, and oriented x3. MUSCULOSKELETAL: Positive for the AV fistula in the left upper arm. No tenderness. No redness.NEUROLOGIC: The patient is delirious. Meds: reviewed and reconciled in the chart ASSESSMENT AND PLAN: 1. Sepsis. 2. Acute encephalopathy. 3. Hypoxemic respiratory failure. 4. Right-sided pleural effusion post drainage 5. End-stage renal disease, on hemodialysis. 6. Anemia. 7. GI and DVT prophylaxis. PLAN OF CARE: Recurrent Effusion , Post Thoracentesis current pulmonary mgt c/w HD finding stable by imaging and clinically Proceed with SNIF placement Subjective Allergies: Coded Allergies: No Known Allergies (Unverified , 10/09/18) Objective Last 24 Hour Vital Signs Date Time Temp Pulse Resp B/P (MAP) Pulse Ox O2 Delivery O2 Flow Rate FiO2 10/16/18 12:00 97.4 85 18 139/81 (100) 96 10/16/18 09:59 Room Air Room Air 10/16/18 08:00 98.0 76 18 135/66 (89) 95 10/16/18 04:08 98.2 76 18 130/60 (83) 96 10/16/18 00:00 98.1 79 17 144/71 (95) 97 10/15/18 20:11 Room Air Room Air 10/15/18 20:00 97.8 78 18 146/70 (95) 97 10/15/18 16:00 98.2 77 20 133/79 (97) 97 Intake and Output 10/15/18 10/16/18 18:59 06:59 Intake Total 510 ml 470 ml Balance 510 ml 470 ml Intake Oral 400 ml 360 ml IV Total 110 ml 110 ml # Voids 2 2 # Bowel Movements 2 Height (Feet): 5 Height (Inches): 3.00 Weight (Pounds): 132 Cortney Grullon MD Oct 16, 2018 13:12
--- NOTE | 2018-10-16 14:41 | Nephrology Progress Note ---
Assessment/Plan Problem List: (1) ESRD (end stage renal disease) on dialysis (2) Acute pancreatitis (3) Anemia due to chronic kidney disease (4) Pleural effusion on right Assessment ESRD Tue Marilee Sat - has left arm fistula HTN Anemia Pancreatitis Plan Renal diet HD today 10/14 next 10/17 Phos binders PO Protonix DC IV Fluids IV Reglan PRN per consultants Subjective ROS Limited/Unobtainable: No Objective Objective Last 24 Hour Vital Signs Date Time Temp Pulse Resp B/P (MAP) Pulse Ox O2 Delivery O2 Flow Rate FiO2 10/16/18 12:00 97.4 85 18 139/81 (100) 96 10/16/18 09:59 Room Air Room Air 10/16/18 08:00 98.0 76 18 135/66 (89) 95 10/16/18 04:08 98.2 76 18 130/60 (83) 96 10/16/18 00:00 98.1 79 17 144/71 (95) 97 10/15/18 20:11 Room Air Room Air 10/15/18 20:00 97.8 78 18 146/70 (95) 97 10/15/18 16:00 98.2 77 20 133/79 (97) 97 Intake and Output 10/15/18 10/16/18 18:59 06:59 Intake Total 510 ml 470 ml Balance 510 ml 470 ml Intake Oral 400 ml 360 ml IV Total 110 ml 110 ml # Voids 2 2 # Bowel Movements 2 Height (Feet): 5 Height (Inches): 3.00 Weight (Pounds): 132 General Appearance: no apparent distress Cardiovascular: normal rate Respiratory/Chest: lungs clear Abdomen: soft Objective no change Matthieu Gustafson MD Oct 16, 2018 14:41
[2018-10-16 16:00] VITALS: BP 136/83
--- NOTE | 2018-10-16 17:36 | Infectious Diseases Prog Note ---
Assessment/Plan Problems: (1) Aspiration pneumonia of right upper lobe Assessment & Plan: continue zosyn empirically for 8 days , aspiration precaution and keep HOB> 30 degree all the time (2) Pleural effusion on right Assessment & Plan: parapneumonic VS pancreatitis related VS volume overload. S/ P thoracentesis and fluids to be sent for cytology, cell count with DIFF, culture/fungal, PH, amylase, LDH (3) Acute pancreatitis Assessment & Plan: continue supportive care , monitor lipase level (4) Nausea and vomiting in adult patient Assessment & Plan: due to the above, continue supportive care Subjective Constitutional: Reports: no symptoms HEENT: Reports: no symptoms Respiratory: Reports: no symptoms Breasts: Reports: no symptoms Cardiovascular: Reports: no symptoms Gastrointestinal/Abdominal: Reports: no symptoms Genitourinary: Reports: no symptoms Neurologic: Reports: no symptoms Psychiatric: Reports: no symptoms Skin: Reports: no symptoms Endocrine: Reports: no symptoms Hematologic: Reports: no symptoms Musculoskeletal: Reports: no symptoms Allergies: Coded Allergies: No Known Allergies (Unverified , 10/09/18) Subjective had right thoracentesis with removal of 2000 cc of clear fluids from the right pleural space Objective Vital Signs Last 24 Hour Vital Signs Date Time Temp Pulse Resp B/P (MAP) Pulse Ox O2 Delivery O2 Flow Rate FiO2 10/16/18 16:00 97.7 78 18 136/83 (100) 96 10/16/18 12:00 97.4 85 18 139/81 (100) 96 10/16/18 09:59 Room Air Room Air 10/16/18 08:00 98.0 76 18 135/66 (89) 95 10/16/18 04:08 98.2 76 18 130/60 (83) 96 10/16/18 00:00 98.1 79 17 144/71 (95) 97 10/15/18 20:11 Room Air Room Air 10/15/18 20:00 97.8 78 18 146/70 (95) 97 Height (Feet): 5 Height (Inches): 3.00 Weight (Pounds): 132 General Appearance: WD/WN, no acute distress HEENT: normocephalic, atraumatic, anicteric, mucous membranes moist, PERRL Respiratory/Chest: chest wall non-tender, no respiratory distress, no accessory muscle use, decreased breath sounds, crackles/rales Cardiovascular: normal peripheral pulses, normal rate, regular rhythm, no gallop/murmur, no JVD Abdomen: normal bowel sounds, soft, non tender, no organomegaly, non distended , no mass, no scars Genitourinary: normal external genitalia Extremities: no cyanosis, no clubbing Skin: no rash, no lesions, no ulcers 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, no motor/sensory deficits, alert, oriented x 3, responsive Lymphatic: no neck adenopathy, no groin adenopathy Musculoskeletal: normal muscle bulk, no effusion Microbiology Date/Time Source Procedure Growth Status 10/15/18 00:15 Stool Clostridium difficile Toxin Assay - Final Complete Current Medications Medications (Trade) Dose Ordered Sig/Anish Route PRN Reason Start Time Stop Time Status Last Admin Dose Admin Epoetin Isidro (Epoetin Isidro(ESRD on dialysis)) 10,000 unit MON-WED-TUE SUBQ 10/11/18 21:00 11/10/18 20:59 10/13/18 21:46 Heparin Sodium (Porcine) (Heparin 5000 units/ml) 5,000 units EVERY 12 HOURS SUBQ 10/11/18 21:00 11/10/18 08:59 10/16/18 08:42 Hydralazine HCl (Apresoline) 10 mg Q4H PRN IV bp over 160 syst 10/11/18 13:04 11/08/18 13:03 Levothyroxine Sodium (Synthroid) 25 mcg ACBREAKFAST ORAL 10/16/18 06:30 11/15/18 06:29 10/16/18 05:40 Meclizine HCl (Antivert) 25 mg Q6H PRN ORAL for dizziness 10/12/18 10:45 11/11/18 10:44 Metoclopramide HCl (Reglan) 10 mg Q6H PRN IVP Nausea & Vomiting 10/11/18 13:05 11/08/18 13:04 10/13/18 08:10 Pantoprazole (Protonix) 40 mg EVERY 12 HOURS ORAL 10/11/18 21:00 11/10/18 20:59 10/16/18 08:38 Piperacillin Sod/ Tazobactam Sod 2.25 gm/Dextrose 55 ml @ 110 mls/hr Q8HR IVPB 10/11/18 14:00 10/18/18 13:59 10/16/18 13:12 Sevelamer Carbonate (Renvela) 1,600 mg THREE TIMES A DAY ORAL 10/13/18 09:00 11/12/18 08:59 10/16/18 13:12 Jeff Mendez M.D. Oct 16, 2018 17:36
--- NOTE | 2018-10-16 18:41 | Pulmonology Progress Note ---
Assessment/Plan Problems: (1) Pleural effusion on right (2) Acute pancreatitis (3) Nausea and vomiting in adult patient (4) Aspiration pneumonia of right upper lobe (5) Ascites (6) Anemia (7) ESRD (end stage renal disease) on dialysis (8) Anemia due to chronic kidney disease Assessment/Plan ASSESSMENT: The patient is a 58-year-old male with end-stage renal disease, on dialysis Tuesday, , Tuesday, presenting with abdominal pain and nausea secondary to pancreatitis, noted to have a large right-sided pleural effusion with subsequent compressive atelectasis and possible pneumonia. PROBLEM LIST: 1. Large right-sided effusion. 2. Compressive atelectasis. 3. Ground-glass opacity of the right lung, atelectasis versus infiltrate. 4. Left lower lobe pulmonary nodule. 5. Acute pancreatitis. 6. End-stage renal disease, on dialysis. TREATMENT PLAN: 1. Optimize pulmonary hygiene/mobilize as tolerated. 2. Monitor effusion 3. Abx per ID. 4. Pleural effusion likely 2/2 starling forces and possible para-pneumonic component. No masses noted on repeat CT. F/U repeat pleural fluid cytology. IF recurrent in the future despite optimization of fluid status will need a pleural biopsy. Will need to be followed closely as an outpatient. 5. Follow up GI recs, pain control/supportive care 6. Monitor volumes and renal function. HD per renal with UF as able 7. DVT prophylaxis: Hep SQ Subjective Allergies: Coded Allergies: No Known Allergies (Unverified , 10/09/18) Subjective YVETTE No F/C/CP/SOB/N/V/D/C/abd pain/urinary co Objective Last 24 Hour Vital Signs Date Time Temp Pulse Resp B/P (MAP) Pulse Ox O2 Delivery O2 Flow Rate FiO2 10/16/18 16:00 97.7 78 18 136/83 (100) 96 10/16/18 12:00 97.4 85 18 139/81 (100) 96 10/16/18 09:59 Room Air Room Air 10/16/18 08:00 98.0 76 18 135/66 (89) 95 10/16/18 04:08 98.2 76 18 130/60 (83) 96 10/16/18 00:00 98.1 79 17 144/71 (95) 97 10/15/18 20:11 Room Air Room Air 10/15/18 20:00 97.8 78 18 146/70 (95) 97 Intake and Output 10/15/18 10/16/18 18:59 06:59 Intake Total 510 ml 470 ml Balance 510 ml 470 ml Intake Oral 400 ml 360 ml IV Total 110 ml 110 ml # Voids 2 2 # Bowel Movements 2 General Appearance: WD/WN, no acute distress HEENT: normocephalic, atraumatic, anicteric, mucous membranes moist Respiratory/Chest: chest wall non-tender, lungs clear, normal breath sounds, no respiratory distress, no accessory muscle use Cardiovascular: normal peripheral pulses, normal rate, regular rhythm Abdomen: normal bowel sounds, soft, non tender, no organomegaly, non distended , no mass Extremities: no cyanosis, no clubbing, no edema Microbiology Date/Time Source Procedure Growth Status 10/15/18 00:15 Stool Clostridium difficile Toxin Assay - Final Complete Current Medications Medications (Trade) Dose Ordered Sig/Anish Route PRN Reason Start Time Stop Time Status Last Admin Dose Admin Epoetin Isidro (Epoetin Isidro(ESRD on dialysis)) 10,000 unit MON-WED-TUE SUBQ 10/11/18 21:00 11/10/18 20:59 10/13/18 21:46 Heparin Sodium (Porcine) (Heparin 5000 units/ml) 5,000 units EVERY 12 HOURS SUBQ 10/11/18 21:00 11/10/18 08:59 10/16/18 08:42 Hydralazine HCl (Apresoline) 10 mg Q4H PRN IV bp over 160 syst 10/11/18 13:04 11/08/18 13:03 Levothyroxine Sodium (Synthroid) 25 mcg ACBREAKFAST ORAL 10/16/18 06:30 11/15/18 06:29 10/16/18 05:40 Meclizine HCl (Antivert) 25 mg Q6H PRN ORAL for dizziness 10/12/18 10:45 11/11/18 10:44 Metoclopramide HCl (Reglan) 10 mg Q6H PRN IVP Nausea & Vomiting 10/11/18 13:05 11/08/18 13:04 10/13/18 08:10 Pantoprazole (Protonix) 40 mg EVERY 12 HOURS ORAL 10/11/18 21:00 11/10/18 20:59 10/16/18 08:38 Piperacillin Sod/ Tazobactam Sod 2.25 gm/Dextrose 55 ml @ 110 mls/hr Q8HR IVPB 10/11/18 14:00 10/18/18 13:59 10/16/18 13:12 Sevelamer Carbonate (Renvela) 1,600 mg THREE TIMES A DAY ORAL 10/13/18 09:00 11/12/18 08:59 10/16/18 17:43 Gagan Knight MD Oct 16, 2018 18:41
[2018-10-16 20:00] VITALS: BP 133/77
[2018-10-16] MEDS: Epoetin Alfa(ESRD on dialysis)10,000 unit/ml vial SUBQ SCH (20:46)
[2018-10-17] VITALS: BP 133/60
[2018-10-17 04:00] VITALS: BP 148/68
[2018-10-17] MEDS: Levothyroxine 25mcg tab ORAL SCH (05:31)
[2018-10-17] MEDS: Piperacillin/Tazobactam 2.25 GM in D5W 55 ML IVPB SCH ×2 (05:31→13:19)
[2018-10-17 06:30] LABS: BASOPHILS % (AUTO) 0.7 % (0.0-2.0); EOSINOPHILS % (AUTO) 3.5 % (0.0-3.0); HEMATOCRIT 28.5 % (42.0-52.0); HEMOGLOBIN 9.5 G/DL (14.2-18.0); LYMPHOCYTES % (AUTO) 19.8 % (20.0-45.0); MEAN CORPUSCULAR VOLUME 92 FL (80-99); MONOCYTES % (AUTO) 6.6 % (1.0-10.0); NEUTROPHILS % (AUTO) 69.4 % (45.0-75.0); PLATELET COUNT 289 K/UL (150-450); RED BLOOD COUNT 3.11 M/UL (4.70-6.10); RED CELL DISTRIBUTION WIDTH 14.2 % (11.6-14.8); WHITE BLOOD COUNT 8.6 K/UL (4.8-10.8)
[2018-10-17 06:48] LABS: ANION GAP 11 mmol/L (5-15); BLOOD UREA NITROGEN 43 mg/dL (7-18); CALCIUM 9.4 MG/DL (8.5-10.1); CARBON DIOXIDE 29 MMOL/L (21-32); CHLORIDE 94 MMOL/L (98-107); CREATININE 9.8 MG/DL (0.55-1.30); POTASSIUM 4.4 MMOL/L (3.5-5.1); SODIUM 134 MMOL/L (136-145)
[2018-10-17 08:00] VITALS: BP 155/72
[2018-10-17] MEDS: Heparin 5000 units/ml inj SUBQ SCH (08:31)
--- NOTE | 2018-10-17 11:30 | Nephrology Progress Note ---
Assessment/Plan Problem List: (1) ESRD (end stage renal disease) on dialysis (2) Acute pancreatitis (3) Anemia due to chronic kidney disease (4) Pleural effusion on right Assessment ESRD Tue Marilee Sat - has left arm fistula HTN Anemia Pancreatitis Plan Renal diet HD 10/17 currently in process- tolerating well Phos binders PO Protonix DC IV Fluids IV Reglan PRN per consultants Subjective ROS Limited/Unobtainable: No Objective Objective Last 24 Hour Vital Signs Date Time Temp Pulse Resp B/P (MAP) Pulse Ox O2 Delivery O2 Flow Rate FiO2 10/17/18 09:14 Room Air Room Air 10/17/18 08:00 98.4 76 18 155/72 (99) 98 10/17/18 04:00 98.3 76 18 148/68 (94) 98 10/17/18 00:00 98.8 78 17 133/60 (84) 96 10/16/18 21:00 Room Air Room Air 10/16/18 20:00 97.9 77 18 133/77 (95) 99 10/16/18 16:00 97.7 78 18 136/83 (100) 96 10/16/18 12:00 97.4 85 18 139/81 (100) 96 Intake and Output 10/16/18 10/17/18 19:00 07:00 Intake Total 1260 ml 110 ml Balance 1260 ml 110 ml Intake Oral 1260 ml IV Total 110 ml # Voids 6 1 # Bowel Movements 1 1 Laboratory Tests 10/17/18 05:28: White Blood Count 8.6, Red Blood Count 3.11L, Hemoglobin 9.5L, Hematocrit 28.5L , Mean Corpuscular Volume 92, Mean Corpuscular Hemoglobin 30.5, Mean Corpuscular Hemoglobin Concent 33.3, Red Cell Distribution Width 14.2, Platelet Count 289, Mean Platelet Volume 5.6L, Neutrophils (%) (Auto) 69.4, Lymphocytes ( %) (Auto) 19.8L, Monocytes (%) (Auto) 6.6, Eosinophils (%) (Auto) 3.5H, Basophils (%) (Auto) 0.7, Sodium Level 134L, Potassium Level 4.4, Chloride Level 94L, Carbon Dioxide Level 29, Anion Gap 11, Blood Urea Nitrogen 43H, Creatinine 9.8H, Estimat Glomerular Filtration Rate 5.5, Glucose Level 79, Calcium Level 9.4 Height (Feet): 5 Height (Inches): 3.00 Weight (Pounds): 132 General Appearance: no apparent distress Objective no change Matthieu Gustafson MD Oct 17, 2018 11:30
[2018-10-17 12:00] VITALS: BP 157/74
--- NOTE | 2018-10-17 12:23 | General Progress Note ---
Assessment/Plan Assessment: S: I am feeling better O:Denies sob. denies chest pain PHYSICAL EXAMINATION:HEAD AND NECK: Atraumatic and normocephalic. CHEST: Lack of breathing in the right side and bronchial breathing sounds in the other side.NEUROLOGIC: The patient is awake, alert, and oriented x3. MUSCULOSKELETAL: Positive for the AV fistula in the left upper arm. No tenderness. No redness.NEUROLOGIC: The patient is delirious. Meds: reviewed and reconciled in the chart ASSESSMENT AND PLAN: 1. Sepsis. 2. Acute encephalopathy. 3. Hypoxemic respiratory failure. 4. Right-sided pleural effusion post drainage 5. End-stage renal disease, on hemodialysis. 6. Anemia. 7. GI and DVT prophylaxis. PLAN OF CARE: Recurrent Effusion , Post Thoracentesis current pulmonary mgt c/w HD finding stable by imaging and clinically Proceed with SNIF placement Subjective Allergies: Coded Allergies: No Known Allergies (Unverified , 10/09/18) Objective Last 24 Hour Vital Signs Date Time Temp Pulse Resp B/P (MAP) Pulse Ox O2 Delivery O2 Flow Rate FiO2 10/17/18 09:14 Room Air Room Air 10/17/18 08:00 98.4 76 18 155/72 (99) 98 10/17/18 04:00 98.3 76 18 148/68 (94) 98 10/17/18 00:00 98.8 78 17 133/60 (84) 96 10/16/18 21:00 Room Air Room Air 10/16/18 20:00 97.9 77 18 133/77 (95) 99 10/16/18 16:00 97.7 78 18 136/83 (100) 96 Intake and Output 10/16/18 10/17/18 19:00 07:00 Intake Total 1260 ml 110 ml Balance 1260 ml 110 ml Intake Oral 1260 ml IV Total 110 ml # Voids 6 1 # Bowel Movements 1 1 Laboratory Tests 10/17/18 05:28: White Blood Count 8.6, Red Blood Count 3.11L, Hemoglobin 9.5L, Hematocrit 28.5L , Mean Corpuscular Volume 92, Mean Corpuscular Hemoglobin 30.5, Mean Corpuscular Hemoglobin Concent 33.3, Red Cell Distribution Width 14.2, Platelet Count 289, Mean Platelet Volume 5.6L, Neutrophils (%) (Auto) 69.4, Lymphocytes ( %) (Auto) 19.8L, Monocytes (%) (Auto) 6.6, Eosinophils (%) (Auto) 3.5H, Basophils (%) (Auto) 0.7, Sodium Level 134L, Potassium Level 4.4, Chloride Level 94L, Carbon Dioxide Level 29, Anion Gap 11, Blood Urea Nitrogen 43H, Creatinine 9.8H, Estimat Glomerular Filtration Rate 5.5, Glucose Level 79, Calcium Level 9.4 Height (Feet): 5 Height (Inches): 3.00 Weight (Pounds): 132 Cortney Grullon MD Oct 17, 2018 12:23
[2018-10-17] MEDS ORDERED: SYNTHROID25 MCG ORAL (14:34)
[2018-10-17] MEDS ORDERED: RETACRIT10000 UNIT SUBQ (14:34)
[2018-10-17] MEDS ORDERED: RENVELA0.8 GM ORAL (14:35)
[2018-10-17] MEDS ORDERED: REGLAN10 MG ORAL (14:35)
[2018-10-17] MEDS ORDERED: ZOSYN 3.373.375 GM/1 IVPB (14:36)
--- NOTE | 2018-10-17 17:34 | Infectious Diseases Prog Note ---
Assessment/Plan Problems: (1) Aspiration pneumonia of right upper lobe Assessment & Plan: continue zosyn empirically for 8 days , aspiration precaution and keep HOB> 30 degree all the time (2) Pleural effusion on right Assessment & Plan: parapneumonic VS pancreatitis related VS volume overload. S/ P thoracentesis and fluids to be sent for cytology, cell count with DIFF, culture/fungal, PH, amylase, LDH (3) Acute pancreatitis Assessment & Plan: resolved, avoid toxic meds or alcohol Subjective Constitutional: Reports: no symptoms HEENT: Reports: no symptoms Respiratory: Reports: no symptoms Breasts: Reports: no symptoms Cardiovascular: Reports: no symptoms Gastrointestinal/Abdominal: Reports: no symptoms Genitourinary: Reports: no symptoms Neurologic: Reports: no symptoms Psychiatric: Reports: no symptoms Skin: Reports: no symptoms Endocrine: Reports: no symptoms Hematologic: Reports: no symptoms Musculoskeletal: Reports: no symptoms Allergies: Coded Allergies: No Known Allergies (Unverified , 10/09/18) Subjective he feels great overall, denied any symptoms . had right thoracentesis with removal of 2000 cc of clear fluids from the right pleural space Objective Vital Signs Last 24 Hour Vital Signs Date Time Temp Pulse Resp B/P (MAP) Pulse Ox O2 Delivery O2 Flow Rate FiO2 10/17/18 12:00 98.3 73 18 157/74 (101) 98 10/17/18 09:14 Room Air Room Air 10/17/18 08:00 98.4 76 18 155/72 (99) 98 10/17/18 04:00 98.3 76 18 148/68 (94) 98 10/17/18 00:00 98.8 78 17 133/60 (84) 96 10/16/18 21:00 Room Air Room Air 10/16/18 20:00 97.9 77 18 133/77 (95) 99 Height (Feet): 5 Height (Inches): 3.00 Weight (Pounds): 132 General Appearance: WD/WN, no acute distress HEENT: normocephalic, atraumatic, anicteric, mucous membranes moist, PERRL Respiratory/Chest: chest wall non-tender, normal breath sounds, no respiratory distress, no accessory muscle use, decreased breath sounds Cardiovascular: normal peripheral pulses, normal rate, regular rhythm, no gallop/murmur, no JVD Abdomen: normal bowel sounds, soft, non tender, no organomegaly, non distended , no mass, no scars, guarding Extremities: no cyanosis, no clubbing Skin: no rash, no lesions, no ulcers 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, no motor/sensory deficits, alert, oriented x 3, responsive Lymphatic: no neck adenopathy, no groin adenopathy Musculoskeletal: normal muscle bulk, no effusion Microbiology Date/Time Source Procedure Growth Status 10/15/18 00:15 Stool Clostridium difficile Toxin Assay - Final Complete Laboratory Tests Test 10/17/18 05:28 White Blood Count 8.6 K/UL (4.8-10.8) Red Blood Count 3.11 M/UL (4.70-6.10) L Hemoglobin 9.5 G/DL (14.2-18.0) L Hematocrit 28.5 % (42.0-52.0) L Mean Corpuscular Volume 92 FL (80-99) Mean Corpuscular Hemoglobin 30.5 PG (27.0-31.0) Mean Corpuscular Hemoglobin Concent 33.3 G/DL (32.0-36.0) Red Cell Distribution Width 14.2 % (11.6-14.8) Platelet Count 289 K/UL (150-450) Mean Platelet Volume 5.6 FL (6.5-10.1) L Neutrophils (%) (Auto) 69.4 % (45.0-75.0) Lymphocytes (%) (Auto) 19.8 % (20.0-45.0) L Monocytes (%) (Auto) 6.6 % (1.0-10.0) Eosinophils (%) (Auto) 3.5 % (0.0-3.0) H Basophils (%) (Auto) 0.7 % (0.0-2.0) Sodium Level 134 MMOL/L (136-145) L Potassium Level 4.4 MMOL/L (3.5-5.1) Chloride Level 94 MMOL/L (98-107) L Carbon Dioxide Level 29 MMOL/L (21-32) Anion Gap 11 mmol/L (5-15) Blood Urea Nitrogen 43 mg/dL (7-18) H Creatinine 9.8 MG/DL (0.55-1.30) H Estimat Glomerular Filtration Rate 5.5 mL/min (>60) Glucose Level 79 MG/DL (74-106) Calcium Level 9.4 MG/DL (8.5-10.1) Jeff Mendez M.D. Oct 17, 2018 17:34
--- NOTE | 2018-10-19 11:04 | Discharge Summary ---
Discharge Summary Discharge Summary _ DATE OF ADMISSION: 10/09/2018 DATE OF DISCHARGE: 10/17/2018 DISCHARGED BY: Dr Grullon REASON FOR ADMISSION: 58 y/old male with past medical history of end-stage renal disease, on hemodialysis, presented with weakness and nausea for few days. At the time of evaluation patient appeared drowsy, however denied chest pain or shortness of breath. He denied diarrhea. Next He denied abnormal bleeding. Patient denied missing hemodialysis sessions. Upon evaluation vital signs revealed elevated blood pressure 182/93. Laboratory workup revealed no leukocytosis, hemoglobin 9.7, hematocrit 28.3. Sodium 13, 2 anion gap 12. BUN 70, creatinine 6.6, consistent with known history of end-stage renal disease. Glucose 186. Stable LFT. Troponin negative. Lipase 519. Albumin 3.4. EKG revealed normal sinus rhythm, no acute ischemic changes. Chest x-ray demonstrated large right pleural effusion and likely right lung consolidation ; cardiomegaly. CT chest revealed massive right pleural effusion, occupying over 50% of the right hemithorax. Resultant passive atelectasis of most of the right lower lobe and portion of the rest of the lungs. Ground-glass opacity, involving the posterior right upper lobe, may reflect atelectatic changes or focal consolidation. Ascites. Cardiomegaly. Patient subsequently was admitted for further management. CONSULTANTS: pulmonary Dr.Naraghi SMITH specialist Dr. Mendez GI specialist Dr. Jack terrazzo mechanic Dr. Gustafson HOSPITAL COURSE: Patient admitted to monitored floor. Patient started on empiric antibiotics. Supplemental oxygen provided as needed to keep pulse oximetry above 92%. Pulmonary toilet provided as needed. Patient was mobilized. Patient was continue with antibiotics as per ID recommendation. Patient subsequently undergone thoracentesis on 10/10 [id number] 2 L of the pleural fluid. Pleural fluid culture was negative. Pleural fluid analysis revealed no evidence of infection. Follow-up chest x-ray revealed no definite pneumothorax , but increasing opacification of the right lobe. Another follow-up chest x-ray revealed large right-sided pleural effusion over the 2 days. Patient subsequently undergone another thoracentesis on 10/13 which yielded another 2 L of the pleural fluid. Analysis of pleural fluid still revealed no evidence of infection. Pathology of pleural fluid demonstrated no evidence of malignant cells. Venous duplex bilateral lower extremity revealed no evidence of acute DVT. DVT prophylaxis provided. Echocardiogram revealed ejection fraction of 35-40% with anteroseptal wall hypokinesia. Grade 2 diastolic dysfunction. Right ventricular systolic pressure of 54 consistent with moderate pulmonary hypertension. Chest x-ray after second thoracentesis revealed interim resolution of previously demonstrated right pleural effusion, no radiographically evident complication. P Patient undergone repeated CT scan of the chest which demonstrated ground- glass opacity in the right lower lobe with minimal components in the right middle and upper lobes. Per discovery guide, pleural effusion was likely secondary to Starling forces and possible parapneumonic component. No masses were noted on repeated CT scan. If pleural effusion recurs in the future, despite optimization of fluid status, patient will benefit from pleural biopsy. Patient need close follow-up as outpatient by discovery guide. Infectious disease specialist followed. Blood cultures were negative. Pleural fluid culture was negative. Repeated blood culture were negative. Stool for C. difficile was negative. Urine culture revealed mixed gram-positive organisms. Patient was on empiric antibiotic for aspiration pneumonia. Aspiration precautions were maintained. Continue antibiotics at the facility to complete the course as per ID specialist recommendation. Hemodialysis with ultrafiltration provided as per terrazzo mechanic orders with close monitoring of volumes and renal parameters. Electrolytes corrected as needed. Renal diet provided. Patient was able to tolerate diet. GI specialist followed for acute pancreatitis. Abdominal ultrasound, that was done initially, was negative for gallstones and dilated ducts. It showed ascites. Small echogenic kidneys suggestive of chronic kidney disease. Large right pleural effusion. GI prophylaxis provided. Antiemetic provided as needed. Hepatitis panel was negative. HIV test was nonreactive. Lipase trended down to normal. GI prophylaxis provided. LFTs were stable. Lipid panel within normal limits. Cancer tumor marker CEA and CA-19-9 within normal limits. Anemia workup was consistent with anemia of chronic disease. Ferritin 597. Patient was started on EPO. Stool for occult blood was negative. Prior to discharge hemoglobin 9.5, hematocrit 28.5. Patient had a recent history of colonoscopy. Pain management was addressed. Patient clinically stabilized and [facility]. FINAL DIAGNOSES: Aspiration pneumonia right upper lobe Acute encephalopathy Large right-sided pleural effusion, recurrent-resolved Status post thoracentesis x2 Acute pancreatitis-resolved End-stage renal disease, on hemodialysis Anemia of chronic kidney disease Ascites DISCHARGE MEDICATIONS: See Medication Reconciliation list. DISCHARGE INSTRUCTIONS: Patient was [facility] to the [facility] facility. Follow up with medical doctor at the facility. I have been assigned to dictate discharge summary for this account. I was not involved in the patient's management. Paula Noguera NP Oct 19, 2018 11:04
== END 2018-10-17 15:12 | DRG 871 ==
LOC: EDBD 01:56 → EMR 02:29 → 3E 03:59 → EDBEDREQ 04:47 → 2W 08:00 → 4E 10-11 13:40
PROC: 5A1D70Z Performance of Urinary Filtration, Intermittent, Less than 6 Hours Per Day (ICD-10-PCS; principal; 2018-10-09)
PROC: 0W993ZZ Drainage of Right Pleural Cavity, Percutaneous Approach (ICD-10-PCS; 2018-10-10)
PROC: 0W993ZZ Drainage of Right Pleural Cavity, Percutaneous Approach (ICD-10-PCS; 2018-10-13)
DX: A41.9 Sepsis, unspecified organism (principal); J69.0 Pneumonitis due to inhalation of food and vomit; K85.90 Acute pancreatitis without necrosis or infection, unspecified; J96.91 Respiratory failure, unspecified with hypoxia; N18.6 End stage renal disease; G93.40 Encephalopathy, unspecified; I12.0 Hypertensive chronic kidney disease with stage 5 chronic kidney disease or end stage renal disease; J90 Pleural effusion, not elsewhere classified; E87.1 Hypo-osmolality and hyponatremia; J98.11 Atelectasis; R18.8 Other ascites; Z99.2 Dependence on renal dialysis; E11.22 Type 2 diabetes mellitus with diabetic chronic kidney disease; D63.1 Anemia in chronic kidney disease
CPT/HCPCS: 36415; 71045; 71250; 71260; 76700; 76942; 80048; 80053; 80061; 80202; 82140; 82150; 82270; 82378; 82550; 82553; 82607; 82728; 82746; 82962; 82977; 83036; 83540; 83550; 83605; 83690; 83735; 83880; 83986; 84100; 84439; 84443; 84484; 84550; 85025; 85610; 85730; 86140; 86705; 86706; 86707; 86709; 86803; 87040; 87070; 87081; 87086; 87205; 87324; 87340; 88104; 89051; 93005; 93306; 93970; 94640; 94664; 96365; 96367; 96375; 99285; J2405; J2765; J7620

== ENCOUNTER 2019-02-21 21:04 | Emergency (ER) | payer MEDICARE, OTHER ==
[~2019-02-21] VITALS: Ht 162.6 cm; Wt 59.0 kg
[~2019-02-21 21:04] MED LIST: MECLIZINE HCL12.5 MG ORAL; REGLAN10 MG ORAL; RENVELA0.8 GM ORAL; RETACRIT10000 UNIT SUBQ; SYNTHROID25 MCG ORAL; ZOSYN 3.373.375 GM/1 IVPB
[2019-02-21 21:05] VITALS: BP 129/92
--- NOTE | 2019-02-21 21:05 | NUR ---
ED Nurse Note: WENDY CERVANTES 829, Pt states he had 4 teeth removed at 1300 today at the dentist and about an hour ago, it started bleeding and the bleeding would not stop. pt denies any use of anticoagulants / ASA. pt is alert x4, ambulatory
--- NOTE | 2019-02-21 21:39 | Emergency Room Report ---
History of Present Illness General Chief Complaint: General Complaint Source: Patient Present Illness HPI Patient reports having 4 wisdom teeth removed earlier this afternoon Reports that he has had continued bleeding from the area over the last several hours Denies any chest pain denies any vomiting denies any trauma Patient does get dialysis and is due for dialysis tomorrow reports that he has been trying to put pressure without significant improvement Allergies: Coded Allergies: No Known Allergies (Unverified , 10/09/18) Patient History Past Medical History: see triage record Reviewed Nursing Documentation: PMH: Agreed; PSxH: Agreed Nursing Documentation-PMH Past Medical History: No History, Except For Hx Cardiac Problems: Yes Hx Hypertension: Yes Hx Diabetes: Yes Hx Cancer: No Hx Gastrointestinal Problems: No Hx Dialysis: Yes - [facility] Hx Neurological Problems: Yes Hx Dizziness: Yes Review of Systems All Other Systems: negative except mentioned in HPI Physical Exam Vital Signs Date Time Temp Pulse Resp B/P (MAP) Pulse Ox O2 Delivery O2 Flow Rate FiO2 02/21/19 20:58 98.2 88 18 127/50 (75) 98 Room Air 02/21/19 21:05 98 Sp02 EP Interpretation: reviewed, normal General Appearance: no apparent distress Head: normocephalic, atraumatic Eyes: bilateral eye PERRL, bilateral eye EOMI ENT: other - Patient has bleeding actively noted from the 4 sites of dental removal what appears to be likely the wisdom teeth area Neck: supple Respiratory: lungs clear, normal breath sounds Cardiovascular #1: regular rate, rhythm Gastrointestinal: non tender, soft Musculoskeletal: normal inspection Neurologic: alert, oriented x3 Skin: no rash Lymphatic: normal inspection, no adenopathy Procedures Critical Care Time Critical Care Time 70 minutes for multiple re-evaluations critical presentation concerning for decompensation and possible not including any procedural time Additional Procedure Procedure Narrative Given the patient's presentation suction was applied to the areas where bleeding was visualized Initial pressure is applied and it appears that the significant area of bleeding is in the right lower molar Also right molar including dental areas 1234 and 5 Surgicel is applied to these areas It is held with pressure After this Kerlix dressing is placed in the areas and I had the patient bite down The dressings had to be changed on 2 different occasions however appears to be significantly improving Medical Decision Making Diagnostic Impression: Primary Impression: ESRD (end stage renal disease) on dialysis Additional Impression: surgical site bleeding ER Course Given the patient's history and presentation blood work was initiated Hemoglobin is 8.4 however patient has had previous anemia findings At this time the bleeding from the areas are significantly better controlled However there continues to be oozing from the right upper dental area patient requires further inpatient care We do not have the capacity for OMFS or higher level of consultation therefore [facility] was contacted and Dr. Patterson has graciously accepted to consult on the patient Patient further stabilized the best of our ability , airway remains patent and transferred for higher level of care Labs Test 02/21/19 21:23 White Blood Count 8.2 K/UL (4.8-10.8) Red Blood Count 2.59 M/UL (4.70-6.10) Hemoglobin 8.4 G/DL (14.2-18.0) Hematocrit 23.7 % (42.0-52.0) Mean Corpuscular Volume 91 FL (80-99) Mean Corpuscular Hemoglobin 32.4 PG (27.0-31.0) Mean Corpuscular Hemoglobin Concent 35.5 G/DL (32.0-36.0) Red Cell Distribution Width 12.5 % (11.6-14.8) Platelet Count 198 K/UL (150-450) Mean Platelet Volume 6.1 FL (6.5-10.1) Neutrophils (%) (Auto) 72.7 % (45.0-75.0) Lymphocytes (%) (Auto) 16.0 % (20.0-45.0) Monocytes (%) (Auto) 8.2 % (1.0-10.0) Eosinophils (%) (Auto) 1.9 % (0.0-3.0) Basophils (%) (Auto) 1.3 % (0.0-2.0) Prothrombin Time 11.2 SEC (9.30-11.50) Prothromb Time International Ratio 1.1 (0.9-1.1) Sodium Level 136 MMOL/L (136-145) Potassium Level 5.2 MMOL/L (3.5-5.1) Chloride Level 95 MMOL/L (98-107) Carbon Dioxide Level 32 MMOL/L (21-32) Anion Gap 9 mmol/L (5-15) Blood Urea Nitrogen 53 mg/dL (7-18) Creatinine 7.8 MG/DL (0.55-1.30) Estimat Glomerular Filtration Rate 7.1 mL/min (>60) Glucose Level 128 MG/DL (74-106) Calcium Level 9.6 MG/DL (8.5-10.1) Rhythm Strip Diag. Results EP Interpretation: yes Rate: 77 Rhythm: NSR, no PVC's, no ectopy Last Vital Signs Date Time Temp Pulse Resp B/P (MAP) Pulse Ox O2 Delivery O2 Flow Rate FiO2 02/21/19 21:05 98.3 90 18 129/92 98 Room Air 02/21/19 21:05 98 Status: improved Disposition: XFER SHT-TRM HOSP Condition: Serious Referrals: NOT CHOSEN IPA/,REFERRING (PCP) Garrett Chew DO Feb 21, 2019 21:39
[2019-02-21] MEDS ORDERED: Surgicel 4in x 8in TOPIC ONE (21:45)
[2019-02-21 21:50] LABS: BASOPHILS % (AUTO) 1.3 % (0.0-2.0); EOSINOPHILS % (AUTO) 1.9 % (0.0-3.0); HEMATOCRIT 23.7 % (42.0-52.0); HEMOGLOBIN 8.4 G/DL (14.2-18.0); MEAN CORPUSCULAR VOLUME 91 FL (80-99); MONOCYTES % (AUTO) 8.2 % (1.0-10.0); NEUTROPHILS % (AUTO) 72.7 % (45.0-75.0); PLATELET COUNT 198 K/UL (150-450); RED BLOOD COUNT 2.59 M/UL (4.70-6.10); RED CELL DISTRIBUTION WIDTH 12.5 % (11.6-14.8); WHITE BLOOD COUNT 8.2 K/UL (4.8-10.8)
[2019-02-21 21:59] LABS: ANION GAP 9 mmol/L (5-15); BLOOD UREA NITROGEN 53 mg/dL (7-18); CALCIUM 9.6 MG/DL (8.5-10.1); CARBON DIOXIDE 32 MMOL/L (21-32); CHLORIDE 95 MMOL/L (98-107); CREATININE 7.8 MG/DL (0.55-1.30); POTASSIUM 5.2 MMOL/L (3.5-5.1); SODIUM 136 MMOL/L (136-145)
[2019-02-21 22:06] LABS: INR 1.1 (0.9-1.1)
--- NOTE | 2019-02-21 22:45 | NUR ---
ED Nurse Note: Surgicel was applied bypaco TELLO. pt is currently in bed. VSS
[2019-02-21 22:58] VITALS: BP 145/88
--- NOTE | 2019-02-22 | NUR ---
Accepeted to [facility]: Accepting doc: David Alfonso RM: [id number] Transport: Gil ETA: Addendum: 02/22/19 at 0015 by MSCHRAGE ETA: [id number]
--- NOTE | 2019-02-22 00:49 | NUR ---
ED Nurse Note: report given to DMITRIY Jenkins from [facility]. pt is in bed resting,VSS. Awaiting for transportation at this time.
[2019-02-22 00:59] VITALS: BP 150/80
--- NOTE | 2019-02-22 02:55 | NUR ---
ED Nurse Note: pt resting in bed with eyes closed. VSS.
[2019-02-22 02:59] VITALS: BP 148/84
--- NOTE | 2019-02-22 03:01 | NUR ---
ER DISCHARGE NOTE: [facility] via gurney in stable condition.
== END 2019-02-22 03:01 | disposition short-term general hospital (02) ==
LOC: EDBD 21:04 → EMR 21:37
DX: N18.6 End stage renal disease (principal); K91.840 Postprocedural hemorrhage of a digestive system organ or structure following a digestive system procedure; I12.0 Hypertensive chronic kidney disease with stage 5 chronic kidney disease or end stage renal disease; E11.22 Type 2 diabetes mellitus with diabetic chronic kidney disease; Z99.2 Dependence on renal dialysis; Y83.8 Other surgical procedures as the cause of abnormal reaction of the patient, or of later complication, without mention of misadventure at the time of the procedure; Y92.9 Unspecified place or not applicable
CPT/HCPCS: 36415; 80048; 85025; 85610; 99291

== ENCOUNTER 2019-03-01 02:51 | Emergency (ER) | payer MEDICARE, OTHER ==
[~2019-03-01] VITALS: Ht 162.6 cm; Wt 68.0 kg
--- NOTE | 2019-03-01 02:58 | NUR ---
ED Nurse Note: Pt ambulated to ED from home c/o bleeding from his mouth for the past week. Pt had his 4 molars removed on the and bleeding has not stopped. VSS
--- NOTE | 2019-03-01 03:07 | Emergency Room Report ---
History of Present Illness General Chief Complaint: To Be Triaged Present Illness HPI 58-year-old male presents with bleeding from his right upper gums, he had a tooth extraction 02/21/2019, patient was transferred to [facility] where he was subsequently discharged after bleeding controlled, patient presents with acute bleeding prior to arrival, he states he has been bleeding from his mouth again, patient denies any aggravating or alleviating factors, he denies any lightheadedness chest pain or shortness of breath, severity is moderate, constant Allergies: Coded Allergies: No Known Allergies (Unverified , 10/09/18) Patient History Past Medical History: see triage record Reviewed Nursing Documentation: PMH: Agreed; PSxH: Agreed Nursing Documentation-PMH Hx Cardiac Problems: Yes Hx Hypertension: Yes Hx Diabetes: Yes Hx Cancer: No Hx Gastrointestinal Problems: No Hx Dialysis: Yes - TTHS Hx Neurological Problems: Yes Hx Dizziness: Yes Review of Systems All Other Systems: negative except mentioned in HPI Physical Exam Vital Signs Date Time Temp Pulse Resp B/P (MAP) Pulse Ox O2 Delivery O2 Flow Rate FiO2 03/01/19 02:45 98.2 67 18 139/65 (89) 98 Room Air Sp02 EP Interpretation: reviewed, normal General Appearance: well appearing, no apparent distress, alert Head: normocephalic, atraumatic Eyes: bilateral eye PERRL, bilateral eye EOMI ENT: uvula midline, moist mucus membranes, other - Right upper gums sutures in place, clot formation Neck: supple, thyroid normal, supple/symm/no masses Respiratory: lungs clear, no respiratory distress, no retraction, no accessory muscle use Cardiovascular #1: normal peripheral pulses, regular rate, rhythm, no edema, no gallop, no murmur Gastrointestinal: non tender, soft, no guarding, no rebound Musculoskeletal: normal inspection Neurologic: alert, oriented x3 Psychiatric: mood/affect normal Skin: no rash, warm/dry Medical Decision Making Diagnostic Impression: Primary Impression: Gingival bleeding ER Course Patient presents with acute bleed, and appears to be licking his gums, and disrupting clot formation patient counseled that he should not be licking his right upper gums, he is disrupting the clots. TXA infused infuse gauze was used to tamponade bleeding. Patient is anemic, with a drop in hg, patient was recently seen at [facility] and discharged and cleared. Patient without symptoms of anemia, denies cp, lightheadedness. Patient counseled to follow-up with his dentist tomorrow. Return precautions discussed. Laboratory Tests Test 03/01/19 03:00 White Blood Count 5.8 K/UL (4.8-10.8) Red Blood Count 2.41 M/UL (4.70-6.10) L Hemoglobin 7.7 G/DL (14.2-18.0) L Hematocrit 22.7 % (42.0-52.0) L Mean Corpuscular Volume 94 FL (80-99) Mean Corpuscular Hemoglobin 31.7 PG (27.0-31.0) H Mean Corpuscular Hemoglobin Concent 33.7 G/DL (32.0-36.0) Red Cell Distribution Width 12.7 % (11.6-14.8) Platelet Count 319 K/UL (150-450) Mean Platelet Volume 5.6 FL (6.5-10.1) L Neutrophils (%) (Auto) % (45.0-75.0) Lymphocytes (%) (Auto) % (20.0-45.0) Monocytes (%) (Auto) % (1.0-10.0) Eosinophils (%) (Auto) % (0.0-3.0) Basophils (%) (Auto) % (0.0-2.0) Prothrombin Time 10.9 SEC (9.30-11.50) Prothrombin Time INR 1.0 (0.9-1.1) PTT 29 SEC (23-33) Sodium Level 136 MMOL/L (136-145) Potassium Level 4.3 MMOL/L (3.5-5.1) Chloride Level 93 MMOL/L (98-107) L Carbon Dioxide Level 34 MMOL/L (21-32) H Anion Gap 9 mmol/L (5-15) Blood Urea Nitrogen 40 mg/dL (7-18) H Creatinine 7.8 MG/DL (0.55-1.30) H Estimate Glomerular Filtration Rate 7.1 mL/min (>60) Glucose Level 111 MG/DL (74-106) H Calcium Level 9.8 MG/DL (8.5-10.1) Total Bilirubin 0.6 MG/DL (0.2-1.0) Aspartate Amino Transferase (AST) 23 U/L (15-37) Alanine Aminotransferase (ALT) 15 U/L (12-78) Alkaline Phosphatase 106 U/L (46-116) Total Protein 8.9 G/DL (6.4-8.2) H Albumin 3.7 G/DL (3.4-5.0) Globulin 5.2 g/dL Albumin/Globulin Ratio 0.7 (1.0-2.7) L Last Vital Signs Date Time Temp Pulse Resp B/P (MAP) Pulse Ox O2 Delivery O2 Flow Rate FiO2 03/01/19 02:45 98.2 67 18 139/65 (89) 98 Room Air Disposition: HOME, SELF-CARE Condition: Stable Referrals: [facility] Patient Instructions: Tooth Injuries, [id number] Additional Instructions: The patient was provided with discharge instructions, notified to follow-up with a primary care doctor and or specialist in the next 24-48 hours, and to return to the ED if they have worsening of their symptoms. Please note that this report is being documented using [employer] technology. This can lead to erroneous entry secondary to incorrect interpretation by the dictating instrument. Alexi Addison MD Mar 01, 2019 03:07
[2019-03-01 03:17] LABS: HEMATOCRIT 22.7 % (42.0-52.0); HEMOGLOBIN 7.7 G/DL (14.2-18.0); MEAN CORPUSCULAR VOLUME 94 FL (80-99); PLATELET COUNT 319 K/UL (150-450); RED BLOOD COUNT 2.41 M/UL (4.70-6.10); RED CELL DISTRIBUTION WIDTH 12.7 % (11.6-14.8); WHITE BLOOD COUNT 5.8 K/UL (4.8-10.8)
[2019-03-01 03:29] VITALS: BP 139/65
[2019-03-01 03:31] LABS: ANION GAP 9 mmol/L (5-15); BLOOD UREA NITROGEN 40 mg/dL (7-18); CALCIUM 9.8 MG/DL (8.5-10.1); CARBON DIOXIDE 34 MMOL/L (21-32); CHLORIDE 93 MMOL/L (98-107); CREATININE 7.8 MG/DL (0.55-1.30); POTASSIUM 4.3 MMOL/L (3.5-5.1); SODIUM 136 MMOL/L (136-145)
[2019-03-01 03:35] LABS: ALANINE AMINOTRANSFERASE 15 U/L (12-78); ALBUMIN 3.7 G/DL (3.4-5.0); ALBUMIN/GLOBULIN RATIO 0.7 (1.0-2.7); ALKALINE PHOSPHATASE 106 U/L (46-116); ASPARTATE AMINO TRANSFERASE 23 U/L (15-37); BILIRUBIN,TOTAL 0.6 MG/DL (0.2-1.0)
[2019-03-01 04:30] VITALS: BP 139/65
--- NOTE | 2019-03-01 04:30 | NUR ---
ER DISCHARGE NOTE: Patient is cleared to be discharged per ERMD, pt is aox4, on room air, with stable vital signs. pt was given dc and prescription instructions, pt was able to verbalize understanding, pt id band and iv site removed without complications. pt is able to ambulate with steady gait. pt took all belongings.
== END 2019-03-01 04:30 | disposition home or self-care (01) ==
LOC: EDBD 02:51 → EMR 03:35
DX: K06.8 Other specified disorders of gingiva and edentulous alveolar ridge (principal); I10 Essential (primary) hypertension; E11.9 Type 2 diabetes mellitus without complications
CPT/HCPCS: 36415; 80053; 85025; 85610; 85730; 86850; 86900; 86901; 99283